=== PATIENT | male | born 1950 | race Caucasian/White ===

== ENCOUNTER → 2017-06-09 08:03 | Outpatient (CLI) | payer MEDICARE, OTHER, SELFPAY ==
--- NOTE | 2017-06-09 08:06 | CT_ITS ---
STUDY: LOW DOSE CT LUNG CANCER SCREENING REASON FOR EXAM: Male, 66 years old. 48 pack-year smoking history. RADIATION DOSAGE (If Supplied By Facility): CTDIvol = ( 3.02 ) mGy, DLP = ( 116.26 ) mGycm TECHNIQUE: No contrast was administered. Low dose technique was utilized (average mAS-38 and kVp 120). 1.25 mm axial source images with a slice interval of 1.25-mm were reconstructed in lung windows. 2.5 mm axial source images with a slice interval of 2.5-mm were reconstructed in lung windows. 5.0 mm axial source images with a slice interval of 5.0-mm were reconstructed in soft tissue windows. Nodule measured using lung windows on PACS and/or independent workstation with automated measurement of minimum and maximum diameter. Nodule measurement reported as average diameter rounded to the nearest whole number. Growth is defined as an increase ins size of greater than 1.5 mm. COMPARISON: None. NODULES: Calcified granuloma in the anterior aspect of the left upper lobe. Emphysema: Hyperinflation. Aorta: Atherosclerotic calcification. Coronary arteries: Coronary artery calcifications. Mediastinal nodes: Small benign-appearing mediastinal lymph nodes. Other chest and abdominal findings: Mild degenerative changes of the thoracic spine. CT/Low Dose CT Lung Screening IMPRESSION: Lung-RADS category 2 - Continue annual screening with LDCT in 12 months. IMPORTANT NOTES FOR USE: ACR Lung-RADS Version 1.0 Assessment Categories Release Date: August 08, 2013 Category: Coded 0-4 bases on nodule(s) with highest degree of suspicion. Negative screen is defined as categories 1 and 2; a positive screen is defined as categories 3 and 4. Category 3 and 4A nodules that are unchanged on interval CT should be coded as category 2, and individuals returned to screening in 12 months. Category 4X: Category 3 or 4 nodules with additional imaging findings that increase the suspicion of lung cancer, such as spiculation, GGN that doubles in size in 1 year, enlarged lymph notes, etc. Category Modifiers: S (significant finding unrelated to lung cancer) and C (prior history of treated lung cancer) may be added to the 0-4 Lung-RADS Electronically Signed: Bladimir Vega MD at 14:32 EST Tel [phone], Service support ,
== END ==
PROVIDERS: Family Provider Family Medicine; PCP Family Medicine; Visit Provider Family Medicine
DX: F17.200 Nicotine dependence, unspecified, uncomplicated (principal); Z87.891 Personal history of nicotine dependence
CPT/HCPCS: G0297

== ENCOUNTER → 2018-07-28 08:20 | Outpatient (CLI) | payer MEDICARE, OTHER, SELFPAY ==
[2018-07-28 10:42] LABS: ALB/GLOB Ratio 1.2 RATIO (0.9-2.4); AST(SGOT) 22 U/L (15-37); Alanine Aminotransfer ALT/SGPT 29 U/L (16-61); Albumin, Serum 3.7 g/dL (3.2-5.0); Alkaline Phosphatase 111 U/L (45-117); Anion Gap 8 (5-15); BUN 13 mg/dL (7-18); BUN/Creat Ratio 14.1 RATIO (10-20); Chloride 107 mmol/L (98-107); Cholesterol 142 mg/dL (200); Creatinine, Serum 0.92 mg/dL (0.70-1.30); EST Glomerular Filtration Rate 86 mL/min (>60); Est Glom Filt Rate - Afr Amer 104 mL/min (>60); Globulin 3.1 g/dL (2.2-4.2); Glucose 96 mg/dL (74-106); High Density Lipoprotein 51 mg/dL; PSA,Total - Annual Screen 0.25 ng/mL (0.00-4.00); Protein, Total 6.8 g/dL (6.4-8.2); Sodium Level 141 mmol/L (136-145); Triglycerides 84 mg/dL; Very Low Density Lipoprotein 17 mg/dL (5-40)
== END ==
PROVIDERS: Family Provider Family Medicine; PCP Family Medicine; Referring Provider Family Medicine; Visit Provider Family Medicine
DX: E78.5 Hyperlipidemia, unspecified (principal); Z13.21 Encounter for screening for nutritional disorder; N40.0 Benign prostatic hyperplasia without lower urinary tract symptoms; Z12.5 Encounter for screening for malignant neoplasm of prostate
CPT/HCPCS: 36415; 80053; 80061; 82306; 84153; G0103

== ENCOUNTER → 2018-08-13 | Outpatient (CLI) | payer MEDICARE, OTHER, SELFPAY ==
--- NOTE | 2018-08-13 07:42 | CT_ITS ---
STUDY: LOW DOSE CT LUNG CANCER SCREENING REASON FOR EXAM: Male, 67 years old. Tobacco use. One pack per day x20 years. RADIATION DOSAGE (If Supplied By Facility): CTDIvol = ( 2.55 ) mGy, DLP = ( 89.97 ) mGycm TECHNIQUE: No contrast was administered. Low dose technique was utilized (average mAS-38 and kVp 120). 1.25 mm axial source images with a slice interval of 1.25-mm were reconstructed in lung windows. 2.5 mm axial source images with a slice interval of 2.5-mm were reconstructed in lung windows. 5.0 mm axial source images with a slice interval of 5.0-mm were reconstructed in soft tissue windows. Nodule measured using lung windows on PACS and/or independent workstation with automated measurement of minimum and maximum diameter. Nodule measurement reported as average diameter rounded to the nearest whole number. Growth is defined as an increase ins size of greater than 1.5 mm. COMPARISON: CT of the chest dated June 09, 2017. NODULES: There is a 4.3 mm noncalcified nodule within the anterolateral inferior periphery of the right upper lobe, sequence 1002, image 157. In retrospect this finding is present and in fact appears more prominent and larger on the comparison view. There is a new, amorphous, noncalcified density within the lingula measuring approximately 8.6 mm in maximum dimension. This finding may represent focal fibrosis although irregularly marginated new parenchymal nodule cannot be excluded. This finding is seen best on sequence 1002, image 206. Total lung nodules (excluding granulomas): 2 Emphysema: Hyperinflation, stable. Endobronchial lesion: None. Aorta: A few, tiny, scattered calcified plaque without delineation of aneurysm. Coronary arteries: Stable multifocal coronary artery calcifications. Heart: The heart and pericardium appear unremarkable except for coronary artery calcifications. Pulmonary artery: Unremarkable nonopacified pulmonary arteries. Mediastinal nodes: There are a few, small, stable, multistation mediastinal lymph nodes. None appear pathologic by size criteria. There is no pathologic hilar adenopathy on this nonenhanced exam. Other chest and abdominal findings: There is a stable, subcentimeter, calcified granuloma within the anterior medial periphery of the left upper lobe, sequence 1002, image 156. The heart and pericardium appear unremarkable. CT/Low Dose CT Lung Screening IMPRESSION: Stable hyperinflation. No endobronchial lesions. Atherosclerotic peripheral vascular disease without delineation of aneurysm. Atherosclerotic coronary artery disease. Unremarkable, nonopacified pulmonary arteries. Stable small multifocal nonpathologic by size criteria mediastinal lymph nodes. No pathologic by size hilar adenopathy on this nonenhanced exam. Stable subcentimeter calcified granuloma within the anterior left upper lobe. Region of focal fibrosis versus irregularly marginated nodule in the lingula. Please see above. ACR lung-RADS assessment category-3. Lingular nodule. IMPORTANT NOTES FOR USE: ACR Lung-RADS Version 1.0 Assessment Categories Release Date: August 08, 2013 Category: Coded 0-4 bases on nodule(s) with highest degree of suspicion. Negative screen is defined as categories 1 and 2; a positive screen is defined as categories 3 and 4. Category 3 and 4A nodules that are unchanged on interval CT should be coded as category 2, and individuals returned to screening in 12 months. Category 4X: Category 3 or 4 nodules with additional imaging findings that increase the suspicion of lung cancer, such as spiculation, GGN that doubles in size in 1 year, enlarged lymph notes, etc. Category Modifiers: S (significant finding unrelated to lung cancer) and C (prior history of treated lung cancer) may be added to the 0-4 Lung-RADS Electronically Signed: Jorge Camacho MD at 8:53 EDT , Service support ,
== END | disposition home or self-care (01) ==
LOC: CT 07:41
PROVIDERS: Family Provider Family Medicine; PCP Family Medicine; Referring Provider Family Medicine; Visit Provider Family Medicine
DX: Z87.891 Personal history of nicotine dependence (principal); F17.200 Nicotine dependence, unspecified, uncomplicated
CPT/HCPCS: G0297

== ENCOUNTER → 2020-02-13 08:17 | Outpatient (CLI) | payer MEDICARE, OTHER, SELFPAY ==
[2020-02-13 10:24] LABS: Vitamin D,25 Hydroxy 61.6 ng/mL
[2020-02-13 10:28] LABS: AST(SGOT) 23 U/L (15-37); Alanine Aminotransfer ALT/SGPT 43 U/L (16-61); Albumin, Serum 3.6 g/dL (3.2-5.0); Alkaline Phosphatase 113 U/L (45-117); Anion Gap 6 (5-15); BUN 18 mg/dL (7-18); Calcium,Total 9.3 mg/dL (8.5-10.1); Chloride 107 mmol/L (98-107); Cholesterol 178 mg/dL (200); Creatinine, Serum 1.06 mg/dL (0.70-1.30); EST Glomerular Filtration Rate 73 mL/min (>60); Est Glom Filt Rate - Afr Amer 89 mL/min (>60); Globulin 3.7 g/dL (2.2-4.2); Glucose 108 mg/dL (74-106); High Density Lipoprotein 75 mg/dL; PSA,Total - Annual Screen 0.28 ng/mL (0.00-4.00); Potassium 4.6 mmol/L (3.5-5.1); Protein, Total 7.3 g/dL (6.4-8.2); Sodium Level 142 mmol/L (136-145); Triglycerides 64 mg/dL; Very Low Density Lipoprotein 13 mg/dL (5-40)
== END ==
PROVIDERS: PCP Family Medicine; Visit Provider Family Medicine
DX: E78.5 Hyperlipidemia, unspecified (principal); N40.0 Benign prostatic hyperplasia without lower urinary tract symptoms; E55.9 Vitamin D deficiency, unspecified
CPT/HCPCS: 36415; 80053; 80061; 82306; 84153; G0103

== ENCOUNTER 2020-05-31 09:50 | Outpatient (RCR) | payer MEDICARE, OTHER, SELFPAY | END 2020-05-31 23:59 | LOC: IMMUN 09:50 | PROVIDERS: PCP Family Medicine; Referring Provider Family Medicine; Visit Provider Family Medicine | DX: Z23 Encounter for immunization (principal) | CPT/HCPCS: 0011A; 0012A ==

== ENCOUNTER → 2020-09-12 13:43 | Outpatient (CLI) | payer MEDICARE, OTHER, SELFPAY ==
--- NOTE | 2020-09-12 13:44 | CT_ITS ---
STUDY: LOW DOSE CT LUNG CANCER SCREENING REASON FOR EXAM: Male, 70 years old. TOBACCO ABUSE. The patient smoked 1 pack per day for 50 years. RADIATION DOSAGE (If Supplied By Facility): CTDIvol = ( 3.02 ) mGy, DLP = ( 120.78 ) mGycm TECHNIQUE: No contrast was administered. Low dose technique was utilized (average mAS-38 and kVp 120). 1.25 mm axial source images with a slice interval of 1.25-mm were reconstructed in lung windows. 2.5 mm axial source images with a slice interval of 2.5-mm were reconstructed in lung windows. 5.0 mm axial source images with a slice interval of 5.0-mm were reconstructed in soft tissue windows. Nodule measured using lung windows on PACS and/or independent workstation with automated measurement of minimum and maximum diameter. Nodule measurement reported as average diameter rounded to the nearest whole number. Growth is defined as an increase ins size of greater than 1.5 mm. COMPARISON: Comparison is made with prior examination dated 08/13/2018. NODULES: Stable 4 mm noncalcified nodule in the anterolateral aspect of the right lower lobe as seen on axial image #160. Calcified granuloma in the anterior medial portion of the left upper lobe as seen on axial image #163. The previously seen irregular nodular density in the anterior aspect of the lingular segment of the left upper lobe is not seen at this time. Emphysema: Mild degree of emphysematous changes. Endobronchial lesion: Aorta: Atherosclerotic plaque formation of the aortic arch. Coronary arteries: Coronary artery calcification. Heart: Unremarkable. Pulmonary artery: Unremarkable. Mediastinal nodes: Small benign-appearing mediastinal lymph nodes. Other chest and abdominal findings: CT/Low Dose CT Lung Screening IMPRESSION: Lung-RADS category 2 - Continue annual screening with LDCT in 12 months. IMPORTANT NOTES FOR USE: ACR Lung-RADS Version 1.1 Assessment Categories Release Date: 2018 Category: Coded 0-4 bases on nodule(s) with highest degree of suspicion. Negative screen is defined as categories 1 and 2; a positive screen is defined as categories 3 and 4. Category 3 and 4A nodules that are unchanged on interval CT should be coded as category 2, and individuals returned to screening in 12 months. Category 4X: Category 3 or 4 nodules with additional imaging findings that increase the suspicion of lung cancer, such as spiculation, GGN that doubles in size in 1 year, enlarged lymph notes, etc. Category Modifiers: S (significant finding unrelated to lung cancer) Electronically Signed: Bladimir Vega MD at 15:31 EDT , Service support ,
== END ==
PROVIDERS: PCP Family Medicine; Referring Provider Family Medicine; Visit Provider Family Medicine
DX: F17.210 Nicotine dependence, cigarettes, uncomplicated (principal)
CPT/HCPCS: 71271

== ENCOUNTER 2020-11-26 07:49 | Emergency (ER) | payer MEDICARE, OTHER, SELFPAY ==
[2020-11-26] VITALS (7 sets, daily range): BP systolic 128–158; BP diastolic 77–108; PULSE 63–79; RESP 11–21; TEMP 35.6; O2SAT 96–100; BMI 22.8
--- NOTE | 2020-11-26 08:08 | EKG12_ITS ---
Test Reason : STROKE Blood Pressure : / mmHG Vent. Rate : 074 BPM Atrial Rate : 074 BPM P-R Int : 158 ms QRS Dur : 104 ms QT Int : 404 ms P-R-T Axes : 068 011 035 degrees QTc Int : 448 ms Normal sinus rhythm Normal ECG Confirmed by GILBERT ASENCIO, SARY ([id number]), rewrite editor [place] ([id number]) on 11/28/2020 9:58:11 AM Referred By: Confirmed By:SARY HUNT MD
--- NOTE | 2020-11-26 08:08 | CT_ITS ---
STUDY: CT HEAD STROKE PROTOCOL W/O CONTRAST INJECTION REASON FOR EXAM: Male, 70 years old. Neuro deficit, acute, stroke suspected RADIATION DOSAGE (If Supplied By Facility): CTDIvol = ( 44.99 ) mGy, DLP = ( 796.11 ) mGycm TECHNIQUE: Transaxial CT imaging of the brain was performed without administration of intravenous contrast material. Individualized dose optimization techniques were used for this CT. COMPARISON: No relevant priors. FINDINGS: Normal soft tissue structures. Normal calvarium. There is mild cerebral atrophy with widening of the extra-axial spaces and ventricular dilatation. Normal white matter tracts of the cerebral hemispheres. Normal basal ganglia and thalami. Normal brainstem. Normal cerebellum. There is no intracranial hemorrhage. There are no findings of an acute ischemic infarction. Atherosclerotic calcification of the cavernous portions of the internal carotid arteries bilaterally. Normal visualized paranasal sinuses. CT/STROKE Brain/Head without Cont IMPRESSION: Chronic involutional changes of the brain. N.B. : The above Results were Read Back by Bladimir Vega MD to Whit Grubbs and understanding confirmed on 11/26/2020 08:49:35 (ET). Electronically Signed: Bladimir Vega MD at 8:50 EDT , Service support ,
--- NOTE | 2020-11-26 08:08 | RAD_ITS ---
STUDY: X-RAY CHEST REASON FOR EXAM: Male, 70 years old. Neuro deficit, acute, stroke suspected TECHNIQUE: Single AP portable view of the chest. COMPARISON: None. FINDINGS: EKG electrodes are seen. The lungs are clear and expanded. There is no demonstrated pleural abnormality. Normal size heart. Normal mediastinum and kate. Normal visualized pulmonary arteries. There is atherosclerotic calcification of the aortic arch with tortuosity. Normal visualized thoracic spine. Normal visualized ribs, clavicles, and shoulders. There is no demonstrated abnormality of the visualized soft tissue structures of the upper abdomen. RAD/Chest 1 View IMPRESSION: Normal x-ray examination of the chest. Electronically Signed: Bladimir Vega MD at 9:24 EDT , Service support ,
--- NOTE | 2020-11-26 08:09 | CT_ITS ---
STUDY: CTA HEAD AND NECK WITH CONTRAST REASON FOR EXAM: Male, 70 years old. Neuro deficit, acute, stroke suspected RADIATION DOSAGE (If Supplied By Facility): CTDIvol = ( 19.31 ) mGy, DLP = ( 726.58 ) mGycm TECHNIQUE: CT angiography was performed with a multi-detector CT scanner. Data acquisition was obtained from the skull base through the vertex following intravenous administration of IV 100mL [id number]-[id number]. MIP images were reconstructed from the axial data set. Post-processing of the angiographic images was performed, with multiplanar reformation and 3D reconstruction. Individualized dose optimization techniques were used for this CT. COMPARISON: No relevant priors. FINDINGS: Normal bilateral petrous carotid arteries. Normal right cavernous carotid artery with a normal supraclinoid bifurcation. Normal left cavernous carotid artery with a normal supraclinoid bifurcation. Normal right A1 segments of the anterior cerebral artery. Normal left A1 segments of the anterior cerebral artery. Normal intact anterior communicating artery (ACOM). Normal bilateral A2 segments of the anterior cerebral arteries. Normal right M1 and M2 segments of the middle cerebral arteries, with a normal M1 bifurcation. Normal left M1 and M2 segments of the middle cerebral arteries, with a normal M1 bifurcation. Normal right posterior communicating artery (PCOM). Normal left posterior communicating artery (PCOM). Normal bilateral vertebral arteries. Normal basilar artery with a normal basilar bifurcation. The visualized bilateral superior cerebellar (SCA) arteries are normal. Normal bilateral P1, P2 and visualized P3 segments of the posterior cerebral arteries. There is no demonstrated aneurysm of the [place]. There is no demonstrated abnormality of the visualized brain. AORTIC ARCH: There is atherosclerotic calcific plaque formation of the aortic arch and great vessels arising from the aortic arch, without a hemodynamically significant stenosis. There is a normal origin of the brachiocephalic, left common carotid, and left subclavian arteries. Mild atherosclerotic plaque at the origin of the left subclavian artery and brachiocephalic artery. RIGHT CAROTID ARTERIES: Normal right common carotid artery (CCA). Normal right common carotid bulb. There is moderate atherosclerotic plaque formation of the origin of the right internal carotid artery with an estimated stenosis of 50-69% stenosis. Normal visualized cervical portion of the right internal carotid artery. Normal origin of the right external carotid artery (ECA). LEFT CAROTID ARTERIES: Normal left common carotid artery (CCA). Normal left common carotid bulb. There is extensive atherosclerotic plaque formation of the origin of the left internal carotid artery with an estimated stenosis of greater than 70%. Normal visualized cervical portion of the left internal carotid artery. Normal origin of the left external carotid artery (ECA). VERTEBRAL ARTERIES: Normal bilateral vertebral arteries. CT/STROKE CTA Head AND Neck W/Con IMPRESSION: Greater than 70% narrowing at the origin of the left internal carotid artery. N.B. : The above Results were Read Back by Bladimir Vega MD to Whit Grubbs and understanding confirmed on 11/26/2020 08:52:49 (ET). Electronically Signed: Bladimir Vega MD at 8:53 EDT , Service support ,
--- NOTE | 2020-11-26 08:10 | EDS_ITS ---
HPI History of Present Illness Chief Complaint: Confusion Narrative Narrative: 70-year-old male presenting with confusion. Family states this started last night. He has had unsteady gait and vertigo. He also complains of difficulty with confusion and word finding. He states the left side of his body does not feel right. Denies slurred speech. He is not on anticoagulants. No history of previous stroke. Prior similar symptoms: No Recent Illness/Hospitalization: No PFSH PFS Medical History (Updated 11/26/20 @ 09:[address] Whit Grubbs MD) Back pain Fibromyalgia Hyperlipidemia Home Medications atorvastatin 10 mg PO DAILY 11/26/20 [History Last Taken Unknown] finasteride 5 mg PO DAILY 11/26/20 [History Last Taken Unknown] Allergy/AdvReac Type Severity Reaction Status Date / Time No Known Allergies Allergy Verified 11/26/20 07:51 Social History Smoking Status: Never smoker ROS ROS ED Constitutional Constitutional ED: Denies fever(s) Eyes Eyes: Denies change in vision ENT ENT ED: Denies rhinorrhea or sore throat Cardiovascular Cardiovascular: Denies chest pain or palpitations Respiratory/Chest Respiratory/Chest: Denies cough or dyspnea Gastrointestinal Gastrointestinal: Denies abdominal pain, diarrhea, nausea or vomiting Genitourinary Genitourinary ED: Denies dysuria Musculoskeletal Musculoskeletal: Denies myalgias Integumentary Denies rash Neurologic Neurologic: Reports other Details: Expressive aphasia, vertigo ; Denies headache(s) Psychiatric Psychiatric: Denies suicidal thoughts EXAM Physical Exam Const Vital Signs: 11/26/20 07:51 11/26/20 08:03 11/26/20 08:08 Temperature 96.1 F L Temperature Source Temporal Pulse Rate 79 71 Respiratory Rate 14 11 L Blood Pressure 158/92 H 136/77 H Blood Pressure Mean 114 96 Pulse Ox 98 99 Oxygen Delivery Method Room Air Room Air 11/26/20 08:33 11/26/20 08:38 Temperature Temperature Source Pulse Rate 78 71 Respiratory Rate 16 16 Blood Pressure 158/108 H 154/95 H Blood Pressure Mean 124 114 Pulse Ox 100 96 Oxygen Delivery Method Room Air Room Air Positive well nourished and well developed General Appearance ED: well developed HEENT Reports normocephalic and head/scalp atraumatic Eyes PERRL and EOMs intact bilaterally Neck supple General: Negative for tenderness Chest Wall inspection of chest normal Resp normal respiratory effort and clear to auscultation bilaterally Cardio regular rate and regular rhythm GI non-tender and non-distended Palpation: soft; Negative for guarding or rebound tenderness present no CVA tenderness Extremity normal to inspection Neuro oriented x3 Neuro Narrative: NIH 2: LOC questions, expressive aphasia Sensorium / Orientation: alert Psych mental status grossly normal MDM MDM MDM Narrative Medical decision making narrative: Stroke team was activated on patient's arrival. He is not a TPA candidate. Discussed with [facility] neurology. They are in agreement that patient is not a TPA candidate. Recommend admission for stroke work-up to [facility] if there is no LVO on CT scan. CT head shows no acute process. Glucose 130. CBC, chemistries unremarkable. Troponin is negative. EKG is sinus rhythm rate of 74 with no acute ischemic changes. CTA head shows greater than 70% narrowing at the origin of the left internal carotid artery. This was discussed with [facility] neurology. Recommend transfer to [facility] for further evaluation due to narrowing of left internal carotid artery. Patient and family are agreeable with this plan. He will be transferred to [facility]. Lab Data Labs: Laboratory Results - last 24 hr 11/26/20 11/26/20 11/26/20 08:03 08:05 08:05 WBC 7.3 RBC 4.76 Hgb 15.5 Hct 46.7 MCV 98.1 H MCH 32.6 H MCHC 33.2 RDW Std Deviation 44.7 H RDW Coeff of Crispin 12.4 Plt Count 194 MPV 9.5 Immature Gran % (Auto) 0.400 Neut % (Auto) 71.5 H Lymph % (Auto) 16.4 L [place] % (Auto) 8.3 Eos % (Auto) 3.0 Baso % (Auto) 0.4 Absolute Neuts (auto) 5.2 Absolute Lymphs (auto) 1.19 Nucleated RBC % 0 PT 14.2 INR 1.2 APTT 29.5 Sodium Potassium Chloride Carbon Dioxide Anion Gap BUN Creatinine Estim Creat Clear Calc Est GFR (MDRD) Af Amer Est GFR (MDRD) Non-Af BUN/Creatinine Ratio Glucose Calcium Troponin I High Sens POC Glucose 130 H 11/26/20 08:05 WBC RBC Hgb Hct MCV MCH MCHC RDW Std Deviation RDW Coeff of Crispin Plt Count MPV Immature Gran % (Auto) Neut % (Auto) Lymph % (Auto) [place] % (Auto) Eos % (Auto) Baso % (Auto) Absolute Neuts (auto) Absolute Lymphs (auto) Nucleated RBC % PT INR APTT Sodium 139 Potassium 4.1 Chloride 109 H Carbon Dioxide 24.0 Anion Gap 6 BUN 17 Creatinine 0.96 Estim Creat Clear Calc 74.97 Est GFR (MDRD) Af Amer 98 Est GFR (MDRD) Non-Af 81 BUN/Creatinine Ratio 17.6 Glucose 137 H Calcium 8.8 Troponin I High Sens 23.2 POC Glucose Radiography Diagnostic Testing: Radiology Impression Brain CT 11/26/20 08:08 IMPRESSION: Chronic involutional changes of the brain. N.B. : The above Results were Read Back by Bladimir Vega MD to Whit Grubbs and understanding confirmed on 11/26/2020 08:49:35 (ET). Electronically Signed: Bladimir Vega MD at 8:50 EDT , Service support , ADDENDUM: 11/26/20 0857 IMPRESSION: Chronic involutional changes of the brain. N.B. : The above Results were Read Back by Bldaimir Vega MD to Whit Grubbs and understanding confirmed on 11/26/2020 08:49:35 (ET). Electronically Signed: Bladimir Vega MD at 8:50 EDT , Service support , Head/Neck CTA 11/26/20 08:09 IMPRESSION: Greater than 70% narrowing at the origin of the left internal carotid artery. N.B. : The above Results were Read Back by Bladimir Vega MD to Whit Grubbs and understanding confirmed on 11/26/2020 08:52:49 (ET). Electronically Signed: Bladimir Vega MD at 8:53 EDT , Service support , ADDENDUM: 11/26/20 0900 IMPRESSION: Greater than 70% narrowing at the origin of the left internal carotid artery. N.B. : The above Results were Read Back by Bladimir Vega MD to Whit Grubbs and understanding confirmed on 11/26/2020 08:52:49 (ET). Electronically Signed: Bladimir Vega MD at 8:53 EDT , Service support , EKG Initial EKG: Attestation: I personally reviewed and interpreted this EKG as follows: Interpretation: Sinus Rhythm and No Acute Injury Pattern Discharge Plan Triage Chief Complaint: Confusion ED Provider: Whit Grubbs Dx/Rx/DC Orders Clinical Impression: Acute CVA (cerebrovascular accident), Carotid artery narrowing Prescriptions: No Action atorvastatin 10 mg tablet 10 mg PO DAILY RF: 0 finasteride 5 mg tablet 5 mg PO DAILY RF: 0 Primary Care Provider: Fransisco Granado Referrals: Fransisco Granado MD [Primary Care Provider] - Disposition Disposition: Acute Care Hospital Discharge Location: [facility]
--- NOTE | 2020-11-26 08:15 | NURSING ---
[id number] STROKE ALERT CALLED
[2020-11-26 08:24] LABS: Absolute Lymphocyte Count 1.19 X10^3/uL (0.83-4.51); Absolute Neutrophil Count 5.2 X10^3/uL (2.0-7.7); Basophil# 0.03 X10^3/uL; Basophil% 0.4 % (0-1); Eosinophil# 0.22 X10^3/uL; Hematocrit 46.7 % (40-54); Hemoglobin 15.5 g/dL (13.0-16.5); Lymphocyte # 1.19 X10^3/ul (0.83-4.51); Lymphocyte % 16.4 % (19-41); Mean Corp Hgb Conc 33.2 g/dL (32-36); Mean Corpuscular Hgb 32.6 pg (27.0-32.0); Mean Corpuscular Volume 98.1 fL (80-94); Mean Platelet Vol. 9.5 fl (6.2-12.0); Monocyte% 8.3 % (0-10); NRBC Flagged by Analyzer 0 % (0-5); Neutrophil # 5.19 X10^3/uL (2.7-7.7); Neutrophil % 71.5 % (47-70); Platelet Count 194 K/mm3 (150-450); RBC Distribution Width CV 12.4 % (11.6-14.6); RBC Distribution Width SD 44.7 fl (35.1-43.9); Red Blood Count 4.76 M/mm3 (4.6-6.2); White Blood Count 7.3 K/mm3 (4.4-11.0)
[2020-11-26 08:40] LABS: Anion Gap 6 (5-15); BUN 17 mg/dL (7-18); BUN/Creat Ratio 17.6 RATIO (10-20); Calcium,Total 8.8 mg/dL (8.5-10.1); Chloride 109 mmol/L (98-107); Creatinine, Serum 0.96 mg/dL (0.70-1.30); EST Glomerular Filtration Rate 81 mL/min (>60); Est Glom Filt Rate - Afr Amer 98 mL/min (>60); Estimated Creatinine Clearance 74.97 ml/min; Glucose 137 mg/dL (74-106); Potassium 4.1 mmol/L (3.5-5.1); Sodium Level 139 mmol/L (136-145); Troponin-I HS 23.2 pg/mL (3.0-78.5)
[2020-11-26 08:45] LABS: Bedside Glucose 130 mg/dL (70-110)
[2020-11-26 08:46] LABS: International Normalized Ratio 1.2; Prothrombin Time (Protime)PT. 14.2 SECONDS (11.7-14.9)
[2020-11-26 08:47] LABS: Partial Thromboplast Time 29.5 Seconds (24.1-36.2)
--- NOTE | 2020-11-26 09:35 | NURSING ---
CALLED [facility], ETA IS 30 MIN
== END 2020-11-26 09:57 | disposition short-term general hospital (02) ==
PROVIDERS: Emergency Provider Emergency Medicine; PCP Family Medicine
DX: I63.9 Cerebral infarction, unspecified (principal); I65.22 Occlusion and stenosis of left carotid artery; E78.5 Hyperlipidemia, unspecified; M79.7 Fibromyalgia; Z79.899 Other long term (current) drug therapy
CPT/HCPCS: 70450; 70496; 70498; 71045; 80048; 82962; 84484; 85025; 85610; 85730; 93005; 99285; Q9967; A4216

== ENCOUNTER 2020-12-20 09:47 | Outpatient (RCR) | payer MEDICARE, OTHER, SELFPAY ==
--- NOTE | 2020-12-20 12:01 | HP.SP.AD ---
History - History Date of Eval: 12/20/20 Previous speech therapy: Yes Results: Patient stated he did receive speech therapy at [facility]. Patient was there for 8 days. Other Relevant Medical History/Diagnoses/Surgery: 70-year-old male presented with confusion at [facility] on 11/26/2020. He presented with an unsteady gait and vertigo. He also complained of difficulty with confusion and word finding. No history of previous stroke. Patient had a CT completed on 11/26/2020. Clinical Impression: Acute CVA (cerebrovascular accident), Carotid artery narrowing. CTA head showed greater than 70% narrowing at the origin of the left internal carotid artery. This was discussed with [facility] neurology. Recommended transfer to [facility] for further evaluation due to narrowing of left internal carotid artery. Patient and family were agreeable with this plan. He was transferred to [facility]. Medications related to this diagnosis: atorvastatin 10 mg tablet. 10 mg PO DAILY RF: 0. finasteride 5 mg tablet. 5 mg PO DAILY RF: 0. aspirin Smoking Status: Never smoker Hx Smoking: No - Pain Is pain an issue with your current prescribed condition?: No - Personal Right Hearing Abillity: Use of Hearing Aid Left Hearing Abillity: Use of Hearing Aid Visual Assistive Devices: Glasses Patients Living Arrangements: With Significant Other Patient Allergies - Allergies Allergies No Known Allergies Allergy (Verified 11/26/20 07:51) CLQT - CLQT CLQT Administered: Yes CLQT: Cognitive Linguistic Quick Test (CLQT) is a criterion - referenced assessment designed for adults between the ages of 18 and 89 with known or suspected neurological dysfuntions. The CLQT is to assess strength and weaknesses in five cognitive domains. Severity ratings are within normal limits, mild, moderate, severe deficits. The subtests are as follows: Date: 12/20/20 - Attention Attention: WNL - Memory Memory: Mild - Executive Functions Executive Functions: WNL - Language Language: Mild - Visuospatial Skills Visuospatial Skills: WNL - Composite Severity Rating Composite Severity Rating: WNL - Clock Drawing Severity Rating Clock Drawing Severity Rating: WNL - CLQT Comments CLQT comments Patient stated that he was aware that at times he encounters some difficulty with word finding when engaged in a conversation. He stated sometimes it takes a little while to come up with the word. He stated that his ability to recall words has greatly improved since he has come home for [facility]. Patient stated that he is aware that he at times tends to not take his time and that his reminds him. Patient is currently managing his own medication with monitoring. has always taken care of banking and financial matters. Plan - Plan Plan: Patient scored in the normal range for Attention, executive function, and visual spatial cognitive domains. Patient presented mild deficit in memory and language in regards to word recall. Therapist gave patient a hand out of word recall strategies that he can try to use and patient stated that he had found that he was already using some of the strategies. Plan of Care is to recheck patient in a month in order to assess if there any changes in his cognitive status. - Recommendations MBS: No Treatment Warranted: No - Frequency Frequency: Monthly Duration: 2-4 Months - Prognosis Prognosis: Excellent - Goal #1-5 Goal #1: Will reassess Patient's cognitive skills in 1 month in order to monitor patient's progress. Education - Patient has Indicated that the Following Identified Educational Needs: None The Patient has indicated that they have no educational or learning abilities that may effect their care.: Yes - Patient Instruction Patient Education: Diagnosis, Treatment Plan, Home Exercise Program Person Taught: Patient Teaching Method: Discussion Response to teaching: Return demonstration, Verbalize understanding
--- NOTE | 2021-01-22 13:28 | HP.SP.DC ---
ST Discharge Summary - Discharged: Discharge: Patient was initially evaluated on 12/20/20. Results of the CLQT, indicated patient, present very mild deficits in memory and language. At time of evaluation, patient stated that his cognitive status was continuing to improve. Therapist discussed with patient about scheduling a follow up visit in a month to address any difficulties he still might be having. It was discussed with patient that if he felt that he was not having any difficulties with his cognitive skills prior to next appointment , he could call in and cancel the appointment. Patient had called in and cancelled his follow up appointment for 01/17/2021. Patient has been discharged from speech therapy.
== END 2020-12-20 19:00 | disposition home or self-care (01) ==
LOC: SP 09:47
PROVIDERS: PCP Family Medicine; Referring Provider Family Medicine; Visit Provider Family Medicine
DX: R47.01 Aphasia (principal)
CPT/HCPCS: 92523

== ENCOUNTER → 2021-03-08 07:07 | Outpatient (CLI) | payer MEDICARE, OTHER, SELFPAY ==
[2021-03-08 10:03] LABS: AST(SGOT) 20 U/L (15-37); Alanine Aminotransfer ALT/SGPT 31 U/L (16-61); Albumin, Serum 3.4 g/dL (3.2-5.0); Alkaline Phosphatase 103 U/L (45-117); Anion Gap 3 (5-15); BUN 19 mg/dL (7-18); BUN/Creat Ratio 19.7 RATIO (10-20); Calcium,Total 8.9 mg/dL (8.5-10.1); Chloride 111 mmol/L (98-107); Cholesterol 152 mg/dL (200); Creatinine, Serum 0.96 mg/dL (0.70-1.30); EST Glomerular Filtration Rate 81 mL/min (>60); Est Glom Filt Rate - Afr Amer 98 mL/min (>60); Globulin 3.5 g/dL (2.2-4.2); Glucose 95 mg/dL (74-106); High Density Lipoprotein 55 mg/dL; PSA,Total - Annual Screen 0.22 ng/mL (0.00-4.00); Potassium 4.2 mmol/L (3.5-5.1); Protein, Total 6.9 g/dL (6.4-8.2); Sodium Level 141 mmol/L (136-145); Triglycerides 89 mg/dL; Very Low Density Lipoprotein 18 mg/dL (5-40)
== END ==
PROVIDERS: PCP Family Medicine; Referring Provider Family Medicine; Visit Provider Family Medicine
DX: R73.01 Impaired fasting glucose (principal); N40.0 Benign prostatic hyperplasia without lower urinary tract symptoms; Z86.73 Personal history of transient ischemic attack (TIA), and cerebral infarction without residual deficits
CPT/HCPCS: 36415; 80053; 80061; 84153; G0103

== ENCOUNTER 2021-06-27 08:48 | Outpatient (CLI) | payer MEDICARE, OTHER, SELFPAY ==
--- NOTE | 2021-06-27 08:53 | CDU_ITS ---
Reason For Study: evaluate L carotis stent, carotid stenosis Rt. Velocities/BP Lt. Velocities/BP Prox CCA 109.9/18.6 cm/sec. Prox CCA 115.7/27.4 cm/sec. Mid CCA 89.1/22.6 cm/sec. Mid CCA 96.1/17.6 cm/sec. Dist CCA 85.2/20.0 cm/sec. Dist CCA 72.8/20.0 cm/sec. Prox ICA 159.5/42.6 cm/sec. Prox ICA 67.9/15.1 cm/sec. Mid ICA 101.1/28.6 cm/sec. Mid ICA 69.1/21.2 cm/sec. Dist ICA 71.6/24.9 cm/sec. Dist ICA 59.3/22.5 cm/sec. Rt. ICA/CCA = 1.8. Lt. ICA/CCA = .7. Prox ECA 125.6/18.6 cm/sec. Prox ECA 112.1/18.8 cm/sec. Rt. Vert. 56.9/13.9 cm/sec. Lt. Vert. 60.8/15.7 cm/sec. Right Extracranial There is heterogeneous, smooth atherosclerotic plaque noted in the right common carotid artery. There is heterogeneous, irregular atherosclerotic plaque noted in the right internal carotid artery. There is heterogeneous, irregular atherosclerotic plaque noted in the right external carotid artery. Antegrade flow is noted in the right vertebral artery. Left Extracranial There is heterogeneous, irregular atherosclerotic plaque noted in the left common carotid artery. There is heterogeneous, irregular atherosclerotic plaque noted in the left internal carotid artery. Stent noted in the L ICA. There is heterogeneous, irregular atherosclerotic plaque noted in the left external carotid artery. Antegrade flow is noted in the left vertebral artery. Procedure Carotid Duplex 18418. This is a Carotid Duplex examination using B-mode, color flow and specral Doppler. The exam was diagnostic. Exam performed in department. VL/Carotid Duplex Ultrasound Interpretation Summary Irregular calcific plaque at the proximal right internal carotid artery with 50 to 69% stenosis. Less than 50% stenosis right external carotid artery Irregular calcific plaque within the proximal left internal carotid artery with stent artifact noted. Less than 50% stenosis left internal carotid artery Less than 50% stenosis left external carotid artery Patent and antegrade vertebral arteries bilaterally Ordering Physician: Evan Car Performed By: Charles Lambert RVT
== END 2021-06-27 23:59 | disposition home or self-care (01) ==
PROVIDERS: PCP Family Medicine; Referring Provider Psychiatry & Neurology Neurology; Visit Provider Psychiatry & Neurology Neurology
DX: I65.22 Occlusion and stenosis of left carotid artery (principal); Z86.73 Personal history of transient ischemic attack (TIA), and cerebral infarction without residual deficits
CPT/HCPCS: 93880

== ENCOUNTER → 2021-08-02 | Outpatient (CLI) | payer MEDICARE, OTHER, SELFPAY ==
--- NOTE | 2021-08-02 08:15 | RAD_ITS ---
STUDY: X-RAY - LUMBOSACRAL SPINE REASON FOR EXAM: Male, 70 years old. ddd TECHNIQUE: Six view(s) of the lumbosacral spine were obtained. COMPARISON: 03/29/2014 FINDINGS: Unremarkable lumbar lordosis. There is no substantial scoliosis. There is unremarkable alignment of the vertebrae. Multilevel degenerative endplate changes visualized, no evidence of compression deformity of the lumbar vertebral bodies is seen. Subtle grade 1 anterolisthesis of L3 over L4 is seen that demonstrates no significant variation in different positions Extensive hypertrophic changes in the posterior column consistent with facet arthrosis. Atherosclerotic calcifications visualized in the abdominal aorta. RAD/L/S Spine w Bend Min 6 Vw IMPRESSION: Degenerative changes of the lumbar spine demonstrating slight progression in comparison to the prior study, no acute osseous abnormality is seen. Electronically Signed: Michael Vale MD at 8:49 EDT ,
== END | disposition home or self-care (01) ==
LOC: RAD 08:11
PROVIDERS: PCP Family Medicine; Referring Provider Family Medicine; Visit Provider Family Medicine
DX: M51.36 Other intervertebral disc degeneration, lumbar region (principal)
CPT/HCPCS: 72114

== ENCOUNTER 2021-08-10 06:36 | Emergency (ER) | payer MEDICARE, OTHER, SELFPAY ==
[2021-08-10 06:37] VITALS: BP 145/91; PULSE 97; RESP 20; TEMP 36.1; O2SAT 98; BMI 23.6
--- NOTE | 2021-08-10 07:11 | EX.ED.DYSGE1 ---
HPI History of Present Illness Chief Complaint: Other, Pain/Inj Detail of Chief Complaint: Back pain Informant: patient Onset/Context/Timing Onset: Days Context: Gradual Onset Timing: Waxes and wanes Current Severity: Moderate Maximum Severity: Severe Narrative Narrative: Patient present secondary to low back pain with radiation down his left leg. He has had similar problems in the past. Patient states that he noted some back pain after getting in and out of a skid cane loader several days ago. He has seen his primary care physician who started him on gabapentin. Has been to the chiropractor the last 2 days. There is no fall or direct trauma to his back. No problems with bowel or bladder control. No fever or chills. [facility] Medical History Arthritis Back pain Fibromyalgia History of back problems History of blood clots Hyperlipidemia Prostate disorder Skin cancer Home Medications finasteride 5 mg PO DAILY 11/26/20 [History Last Taken Unknown] atorvastatin 20 mg tablet 20 mg PO DAILY #30 tab 06/06/21 [Rx Last Taken Unknown] lisinopril 10 mg tablet See Rx Instructions .ROUTE .COMPLEX #30 tab 06/06/21 [Rx Last Taken Unknown] aspirin 325 mg tablet 325 mg PO DAILY #30 tab 07/04/21 [Rx Last Taken Unknown] cyclobenzaprine 10 mg PO BID PRN #10 tab 08/10/21 [Rx Last Taken Unknown] cyclobenzaprine 10 mg PO TID PRN 08/10/21 [History Last Taken Unknown] hydrocodone-acetaminophen 1 tab PO Q6H PRN 3 Days #10 tab 08/10/21 [Rx Last Taken Unknown] naproxen [Naprosyn] 500 mg PO BID PRN #20 tab 08/10/21 [Rx Last Taken Unknown] prednisone 40 mg PO DAILY #8 tab 08/10/21 [Rx Last Taken Unknown] Allergy/AdvReac Type Severity Reaction Status Date / Time No Known Allergies Allergy Verified 08/10/21 06:39 Social History adopted: Yes Smoking Status: Never smoker Tobacco: How many years used: 40 how long ago did patient quit smoking: quit in November 2020 second hand exposure: No alcohol intake: current alcohol intake frequency: a few times a month substance use type: does not use ROS ROS ED Constitutional Constitutional ED: Denies chills or fever(s) Eyes Eyes: Denies change in vision ENT ENT ED: Denies sore throat Cardiovascular Cardiovascular: Denies chest pain Respiratory/Chest Respiratory/Chest: Denies cough or dyspnea Gastrointestinal Gastrointestinal: Denies abdominal pain, nausea or vomiting Genitourinary Genitourinary ED: Denies dysuria or hematuria Musculoskeletal Musculoskeletal: Reports back pain Integumentary Denies rash Neurologic Neurologic: Denies headache(s), paresthesias or weakness Allergic/Immunologic Allergic/Immunologic ED: Denies urticaria EXAM Physical Exam Const Vital Signs: 08/10/21 06:37 Temperature 97 F L Temperature Source Temporal Pulse Rate 97 Respiratory Rate 20 H Blood Pressure 145/91 H Blood Pressure Mean 109 Pulse Ox 98 Oxygen Delivery Method Room Air Positive well nourished and well developed General Appearance ED: well developed HEENT Reports moist mucous membranes Eyes PERRL and EOMs intact bilaterally Neck supple Chest Wall inspection of chest normal and palpation of chest normal Resp normal respiratory effort and clear to auscultation bilaterally Cardio regular rate and regular rhythm GI non-tender Palpation: soft Back/Spine Back/Spine Narrative: Reproducible tenderness in the left lower lumbar paraspinal muscles and over the left sciatic notch. No midline tenderness. Extremity normal to inspection Neuro oriented x3 Neuro Narrative: Good strength and sensation on testing of the lower extremities. Good distal pulses. Sensorium / Orientation: alert Psych mental status grossly normal Skin no rashes or lesions noted MDM MDM MDM Narrative Medical decision making narrative: Patient has evidence of sciatica with no fall or direct trauma. He has been trying career agent along with gabapentin without improvement. He will be treated with Naprosyn, [place], Flexeril, prednisone. Return instructions provided. Patient voices understanding and agreement. Discharge Plan Triage Chief Complaint: Other, Pain/Inj ED Provider: Naida Roman Dx/Rx/DC Orders Clinical Impression: Sciatica Instructions: ED Sciatica Prescriptions: New naproxen [Naprosyn] 500 mg tablet 500 mg PO BID PRN (Reason: pain) Qty: 20 RF: 0 hydrocodone-acetaminophen 5-325 mg tablet 1 tab PO Q6H PRN (Reason: pain) 3 Days Qty: 10 RF: 0 cyclobenzaprine 10 mg tablet 10 mg PO BID PRN (Reason: muscle spasm) Qty: 10 RF: 0 prednisone 20 mg tablet 40 mg PO DAILY Qty: 8 RF: 0 No Action atorvastatin [Lipitor] 20 mg tablet 20 mg PO DAILY Qty: 30 RF: 4 lisinopril 10 mg tablet See Rx Instructions .ROUTE .COMPLEX Qty: 30 RF: 4 finasteride 5 mg tablet 5 mg PO DAILY RF: 0 cyclobenzaprine 10 mg tablet 10 mg PO TID PRN (Reason: Muscle Spasm) RF: 0 aspirin 325 mg tablet 325 mg PO DAILY Qty: 30 RF: 3 Primary Care Provider: Fransisco Granado Referrals: Fransisco Granado MD [Primary Care Provider] - 1 Week if not improving Disposition Disposition: Home, Self Care Discharge Date/Time: 08/10/21 07:26
[2021-08-10] MEDS: HYDROcodone Bitartrate/Apap 5/325 Tablet PO (07:18)
[2021-08-10] MEDS: Naproxen 500 MG Tablet PO (07:18)
[2021-08-10] MEDS: cycloBENZAPRine HCl 10 MG Tablet PO (07:18)
[2021-08-10] MEDS: predniSONE 20 MG Tablet 40 MG PO (07:19)
--- NOTE | 2021-08-13 15:04 | CASEMGMT ---
ED follow-up phone call: Patient states he just got back from [facility] for outpatient therpay. Patient states he as been in contact with PCP. Patient was able to fill prescriptions without any issues. Patient had no further questions or concerns at this time.
== END 2021-08-10 07:26 | disposition home or self-care (01) ==
PROVIDERS: Emergency Provider Emergency Medicine; PCP Family Medicine; Visit Provider Emergency Medicine
DX: M54.32 Sciatica, left side (principal); M79.7 Fibromyalgia; E78.5 Hyperlipidemia, unspecified; Z87.891 Personal history of nicotine dependence; Z85.828 Personal history of other malignant neoplasm of skin; Z86.718 Personal history of other venous thrombosis and embolism; Z79.899 Other long term (current) drug therapy
CPT/HCPCS: 99283

== ENCOUNTER 2021-08-10 13:19 | Emergency (ER) | payer MEDICARE, OTHER, SELFPAY ==
[2021-08-10 13:20] VITALS: BP 142/79; PULSE 110; RESP 16; TEMP 36.6; O2SAT 98; BMI 23.4
--- NOTE | 2021-08-10 13:57 | EDS_ITS ---
HPI History of Present Illness Chief Complaint: Back Informant: patient and spouse/S.O. Narrative Narrative: Patient presents with back pain. He states he was hoping the medicines were to work by now. He thought the medicines were going to kick in very soon. His states that they were told it would take some time for them to work. Patient states he was using a skid steer about 2 weeks ago. He was climbing in and out frequently. He started to develop back pain at the time. He has back pain going back to his teens and 20s. When he was 21 even it was recommended he have surgery. He never did. He fights this all the time. He commonly gets radiation of pain into his thighs on either side. However, for the last week or so he has had radiation of pain down his left leg laterally to the left lateral tib-fib area. He has not developed any weakness. No numbness. No bowel or bladder dysfunction. He has chronic BPH symptoms but no change in this whatsoever. He has no fevers. He has no acute trauma. He had outpatient x-rays through his primary physician already. He was seen earlier today. He was given prescription for hydrocodone, Flexeril, Naprosyn and prednisone. He has taken these but the pain is still there. Is not really worse but is not better. He states sitting is actually has better position. He can get into a position where he has no pain going down his leg at all. He states he has never been without lower back pain. Standing is the worst position for him. [facility] Medical History Arthritis Back pain Fibromyalgia History of back problems History of blood clots Hyperlipidemia Prostate disorder Skin cancer Home Medications finasteride 5 mg PO DAILY 11/26/20 [History Last Taken Unknown] atorvastatin 20 mg tablet 20 mg PO DAILY #30 tab 06/06/21 [Rx Last Taken Unknown] lisinopril 10 mg tablet See Rx Instructions .ROUTE .COMPLEX #30 tab 06/06/21 [Rx Last Taken Unknown] aspirin 325 mg tablet 325 mg PO DAILY #30 tab 07/04/21 [Rx Last Taken Unknown] cyclobenzaprine 10 mg PO BID PRN #10 tab 08/10/21 [Rx Last Taken Unknown] cyclobenzaprine 10 mg PO TID PRN 08/10/21 [History Last Taken Unknown] hydrocodone-acetaminophen 1 tab PO Q6H PRN 3 Days #10 tab 08/10/21 [Rx Last Taken Unknown] naproxen [Naprosyn] 500 mg PO BID PRN #20 tab 08/10/21 [Rx Last Taken Unknown] prednisone 40 mg PO DAILY #8 tab 08/10/21 [Rx Last Taken Unknown] Allergy/AdvReac Type Severity Reaction Status Date / Time No Known Allergies Allergy Verified 08/10/21 13:20 Social History adopted: Yes Smoking Status: Never smoker Tobacco: How many years used: 40 how long ago did patient quit smoking: quit in November 2020 second hand exposure: No alcohol intake: current alcohol intake frequency: a few times a month substance use type: does not use ROS ROS ED Constitutional Constitutional ED: Denies chills, fever(s) or weight loss ENT ENT ED: Denies rhinorrhea or sore throat Cardiovascular Cardiovascular: Denies chest pain or palpitations Respiratory/Chest Respiratory/Chest: Denies dyspnea Gastrointestinal Gastrointestinal: Denies abdominal pain, constipation, diarrhea, melena, nausea or vomiting Genitourinary Genitourinary ED: Denies dysuria, hematuria or urinary frequency Musculoskeletal Musculoskeletal: Reports back pain Integumentary Denies rash Neurologic Neurologic: Reports paresthesias and other Details: Patient has no weakness or numbness but he does have radiation of pain sensation on his lateral left leg that radiates from the back. All of his back pain is the left lower back. ; Denies weakness Endocrine Endocrinology: Denies polydipsia or polyuria Hematologic/Lymphatic Hematologic/Lymphatic: Denies easy bleeding or easy bruising Allergic/Immunologic Allergic/Immunologic ED: Denies urticaria EXAM Physical Exam Const Vital Signs: 08/10/21 13:20 Temperature 97.8 F Temperature Source Temporal Pulse Rate 110 H Respiratory Rate 16 Blood Pressure 142/79 H Blood Pressure Mean 100 Pulse Ox 98 Oxygen Delivery Method Room Air Positive well nourished and well developed General Appearance ED: well developed and NAD HEENT Reports moist mucous membranes Eyes General Eye ED: Negative for pale conjunctiva or scleral icterus Neck no JVD Resp normal respiratory effort and clear to auscultation bilaterally Cardio regular rate and regular rhythm GI normal to inspection, nondistended, normoactive bowel sounds, soft to palpation, non-tender and non-distended Palpation: Negative for mass Back/Spine normal to inspection Back/Spine Narrative: Patient has lower left paraspinal tenderness. No skin changes. No bony tenderness. He has slight left buttock tenderness. No tenderness or swelling in the leg at all. No asymmetry. No distended veins. He outlines a narrow area on the lateral left calf where his pain refers to. Its not posterior calf. Distal pulses are also completely normal. Color is normal. Normal capillary refill and sensation. Extremity normal to inspection Extremity Narrative: See above. Neuro oriented x3 and no sensory deficits noted Neuro Narrative: Strength and sensation are normal. He has very good bilateral 2+ patellar reflexes. He has good 1?2+ bilateral ankle reflexes. No clonus. Sensorium / Orientation: alert Motor Exam: strength 5/5 throughout Psych mental status grossly normal Skin no rashes or lesions noted MDM MDM MDM Narrative Medical decision making narrative: I had a long talk with the patient. He does have back pain. He has symptoms of what is likely an S1 nerve root impingement. But no sign of bowel bladder dysfunction or weakness or numbness. I do not think he needs an acute MRI. I explained that the prednisone that he is taking will take sometimes several days to kick in. He has other medications for this. I do not think this patient is seeking meds. He is actually still working and getting on and off equipment and on and off of his tractor and skid steer because he is trying to get work done. We discussed trying to decrease this activity as I think is aggravating his back. I will give him medications here including a shot of Kenalog to see if we can accelerate his healing. We discussed that if he has bowel bladder dysfunction weakness or numbness he needs to return. Otherwise, he should try to give this a few days and see if we can get the medications to work. Discharge Plan Triage Chief Complaint: Back ED Provider: Sunil Negrete Dx/Rx/DC Orders Clinical Impression: Sciatica, Acute lumbar back pain Instructions: ED Sciatica Prescriptions: No Action atorvastatin [Lipitor] 20 mg tablet 20 mg PO DAILY Qty: 30 RF: 4 lisinopril 10 mg tablet See Rx Instructions .ROUTE .COMPLEX Qty: 30 RF: 4 finasteride 5 mg tablet 5 mg PO DAILY RF: 0 cyclobenzaprine 10 mg tablet 10 mg PO TID PRN (Reason: Muscle Spasm) RF: 0 naproxen [Naprosyn] 500 mg tablet 500 mg PO BID PRN (Reason: pain) Qty: 20 RF: 0 hydrocodone-acetaminophen 5-325 mg tablet 1 tab PO Q6H PRN (Reason: pain) 3 Days Qty: 10 RF: 0 cyclobenzaprine 10 mg tablet 10 mg PO BID PRN (Reason: muscle spasm) Qty: 10 RF: 0 prednisone 20 mg tablet 40 mg PO DAILY Qty: 8 RF: 0 aspirin 325 mg tablet 325 mg PO DAILY Qty: 30 RF: 3 Primary Care Provider: Fransisco Granado Referrals: Fransisco Granado MD [Primary Care Provider] - 3-5 Days Disposition Disposition: Home, Self Care
[2021-08-10] MEDS: Ketorolac 30 MG/ML Syringe IM (14:28)
[2021-08-10] MEDS: Triamcinolone Acetonide 40 MG/ML Vial IM (14:28)
[2021-08-10] MEDS: Orphenadrine 60 MG/2 ML Ampul IM (14:28)
[2021-08-10] MEDS: HYDROmorphone 1 MG/ML Syringe IM (14:29)
[2021-08-10 14:57] VITALS: BP 146/85; PULSE 89; RESP 16; O2SAT 96
== END 2021-08-10 15:00 | disposition home or self-care (01) ==
PROVIDERS: Emergency Provider Emergency Medicine; PCP Family Medicine; Visit Provider Emergency Medicine
DX: M54.42 Lumbago with sciatica, left side (principal); M79.7 Fibromyalgia; Z87.891 Personal history of nicotine dependence; E78.5 Hyperlipidemia, unspecified; Z85.828 Personal history of other malignant neoplasm of skin; Z79.899 Other long term (current) drug therapy; Z79.82 Long term (current) use of aspirin; N40.0 Benign prostatic hyperplasia without lower urinary tract symptoms
CPT/HCPCS: 96372; 99282; 99283

== ENCOUNTER → 2021-08-23 | Outpatient (CLI) | payer MEDICARE, OTHER, SELFPAY ==
--- NOTE | 2021-08-23 16:00 | MRI_ITS ---
STUDY: MR Spine Lumbar W/O Contrast 08/23/2021 4:32 PM REASON FOR EXAM: Male, 70 years old. LEFT leg pain and weakness DDD TECHNIQUE: MR Spine Lumbar W/O Contrast Standardized fat and water weighted pulse sequences were obtained. COMPARISON: xr Aug 02 2021 8:24am. CT Feb 25 2017 11:06am FINDINGS: Normal lumbar lordosis. There is no substantial scoliosis. There are calcifications of the abdominal aorta. This is consistent for atherosclerotic disease. There is NO abdominal aortic aneurysm. Vascular workup can be obtained based on clinical correlation. Normal conus medullaris that terminates at the L1. L1-2: Loss of intervertebral disc height. There is endplate spondylosis of the vertebral body. Normal central canal and intervertebral neuroforamina. There is bilateral facet arthropathy. L2-3: Loss of intervertebral disc height. There is endplate spondylosis of the vertebral body. Normal central canal and intervertebral neuroforamina. There is bilateral facet arthropathy. L3-4: Loss of intervertebral disc height. There is endplate spondylosis of the vertebral body. Normal central canal and intervertebral neuroforamina. There is bilateral facet arthropathy. There is bilateral ligamentum flavum thickening. L4-5: Loss of intervertebral disc height. There is endplate spondylosis of the vertebral body. There is bilateral ligamentum flavum thickening. Posterior disc herniation. Severe spinal stenosis with narrowing of the lateral recess. Mild compression of the descending bilateral L5 nerve roots. There is bilateral facet arthropathy. L5-S1: Loss of intervertebral disc height. There is endplate spondylosis of the vertebral body. There is bilateral facet arthropathy. Normal central canal and intervertebral neuroforamina. There is bilateral ligamentum flavum thickening. Normal visualized sacral ala. Normal visualized paraspinous soft tissue structures. MRI/Spine Lumbar (Routine) IMPRESSION: Multilevel degenerative changes, as described above. This is most significant at L4-5 there is a posterior disc herniation causing severe spinal stenosis and lateral recess stenosis. Electronically Signed: Sarthak Gil MD at 16:36 EDT ,
== END | disposition home or self-care (01) ==
LOC: MRI 15:26
PROVIDERS: PCP Family Medicine; Referring Provider Family Medicine; Visit Provider Family Medicine
DX: M51.36 Other intervertebral disc degeneration, lumbar region (principal)
CPT/HCPCS: 72148

== ENCOUNTER 2021-08-24 18:00 | Observation (INO) | payer MEDICARE, OTHER, SELFPAY ==
[2021-08-24] VITALS (8 sets, daily range): BP systolic 84–132; BP diastolic 33–72; PULSE 73–100; RESP 16–22; TEMP 36.6–36.7; O2SAT 96–99; BMI 23.7; BMI 21.4
--- NOTE | 2021-08-24 18:11 | EKG12_ITS ---
Test Reason : HYPOTENSION Blood Pressure : / mmHG Vent. Rate : 093 BPM Atrial Rate : 093 BPM P-R Int : 140 ms QRS Dur : 094 ms QT Int : 342 ms P-R-T Axes : 076 017 028 degrees QTc Int : 425 ms Normal sinus rhythm Normal ECG Confirmed by BEENA ASENCIO, ED ([id number]), mapping editor [place]CH ([id number]) on 08/26/2021 1:57:33 PM Referred By: Marino Mcmanus Confirmed By:ED HARGROVE MD
--- NOTE | 2021-08-24 18:11 | EX.ED.DYSGE1 ---
HPI History of Present Illness Chief Complaint: Hypotension Detail of Chief Complaint: Near syncope and low blood pressure Informant: patient and spouse/S.O. Narrative Narrative: Patient presents to the emergency department complaint of near syncope and an episode of low blood pressure. Patient states that he had been working on his tractor all day when he got off the tractor he felt like his arms were heavy and he felt lightheaded like he was going to pass out. Patient states that his then took his blood pressure and noted that his pressure was 83/55 and his pulse was 91. Patient states that he had been drinking water throughout the day. He denies any chest pain or shortness of breath. On arrival to the emergency department he states that he feels fine. He denies recent illness. Patient did have recent stroke. He denies any focal weakness at this time. Prior similar symptoms: No PFSH PFSH Medical History Arthritis Back pain Fibromyalgia History of back problems History of blood clots Hyperlipidemia Prostate disorder Skin cancer Home Medications finasteride 5 mg PO DAILY 11/26/20 [History Last Taken Unknown] atorvastatin 20 mg tablet 20 mg PO DAILY #30 tab 06/06/21 [Rx Last Taken Unknown] lisinopril 10 mg tablet See Rx Instructions .ROUTE .COMPLEX #30 tab 06/06/21 [Rx Last Taken Unknown] aspirin 325 mg tablet 325 mg PO DAILY #30 tab 07/04/21 [Rx Last Taken Unknown] cyclobenzaprine 10 mg PO BID PRN #10 tab 08/10/21 [Rx Last Taken Unknown] cyclobenzaprine 10 mg PO TID PRN 08/10/21 [History Last Taken Unknown] hydrocodone-acetaminophen 1 tab PO Q6H PRN 3 Days #10 tab 08/10/21 [Rx Last Taken Unknown] naproxen [Naprosyn] 500 mg PO BID PRN #20 tab 08/10/21 [Rx Last Taken Unknown] prednisone 40 mg PO DAILY #8 tab 08/10/21 [Rx Last Taken Unknown] Allergy/AdvReac Type Severity Reaction Status Date / Time No Known Allergies Allergy Verified 08/24/21 18:02 Social History adopted: Yes Smoking Status: Never smoker Tobacco: How many years used: 40 how long ago did patient quit smoking: quit in November 2020 second hand exposure: No alcohol intake: current alcohol intake frequency: a few times a month substance use type: does not use ROS ROS ED ROS Narrative Hypotension Constitutional Constitutional ED: Reports systems reviewed and no addt'l complaints, except as documented; Denies body ache(s), change in weight or chills Eyes Eyes: Denies acute decrease in peripheral vision, change in vision, double vision or loss of vision ENT ENT ED: Reports none; Denies ear pain, lip swelling, loss taste/smell, neck pain, otalgia or sore throat Cardiovascular Cardiovascular: Reports none; Denies abdominal pain, chest pain with activity, leg edema, lightheadedness, palpitations, rapid heart rate or syncope Respiratory/Chest Respiratory/Chest: Reports none; Denies change in mental status, dry cough, dyspnea, hemoptysis, shortness of breath at rest or shortness of breath with exertion Gastrointestinal Gastrointestinal: Reports none; Denies abdominal pain, change in stool character, diarrhea, hematemesis, hematochezia, melena, rectal bleeding or vomiting Genitourinary Genitourinary ED: Reports none; Denies abdominal discomfort, anuria, dysuria, genital pain or polyuria Musculoskeletal Musculoskeletal: Reports none; Denies arthralgias, back pain, difficulty walking, extremity pain, muscle weakness or myalgias Integumentary Reports none; Denies abscess or rash Neurologic Neurologic: Reports none and other Details: Dizziness and near syncope ; Denies abnormal gait, confusion, focal weakness, frequent falls, headache(s), loss of vision, numbness, paresthesias, radicular pain, vertigo or weakness Psychiatric Psychiatric: Reports systems reviewed and no addt'l complaints, except as documented and none; Denies behavioral changes, confusion, difficulty concentrating, hallucinations, suicidal ideation, tactile hallucinations or visual hallucinations Endocrine Endocrinology: Denies none, cold intolerance, excessive sweating, fatigue or heat intolerance Hematologic/Lymphatic Hematologic/Lymphatic: Reports none; Denies anemia, easy bleeding or easy bruising Allergic/Immunologic Allergic/Immunologic ED: Denies as per HPI, none, lip swelling, mouth swelling, throat swelling, tongue swelling or hives EXAM Physical Exam Const Vital Signs: 08/24/21 18:00 08/24/21 18:12 08/24/21 18:44 Temperature 98.1 F Temperature Source Temporal Pulse Rate 100 Pulse Rate [Lying] 81 Pulse Rate [Sitting (for 1 minute prior to obtaining)] 85 Respiratory Rate 18 Respiratory Effort Normal Respiratory Pattern Normal Blood Pressure 110/68 Blood Pressure [Lying] 110/60 Blood Pressure [Sitting (for 1 minute prior to obtaining)] 84/44 L Blood Pressure Mean 82 Blood Pressure Mean [Lying] 76 Blood Pressure Mean [Sitting (for 1 minute prior to obtaining)] 57 Pulse Ox 96 Oxygen Delivery Method Room Air 08/24/21 18:46 08/24/21 19:09 Temperature Temperature Source Pulse Rate 90 73 Pulse Rate [Lying] Pulse Rate [Sitting (for 1 minute prior to obtaining)] Respiratory Rate 22 H 16 Respiratory Effort Respiratory Pattern Blood Pressure 104/66 107/33 L Blood Pressure [Lying] Blood Pressure [Sitting (for 1 minute prior to obtaining)] Blood Pressure Mean 78 57 Blood Pressure Mean [Lying] Blood Pressure Mean [Sitting (for 1 minute prior to obtaining)] Pulse Ox 96 98 Oxygen Delivery Method Room Air Room Air Positive well nourished and well developed General Appearance ED: well developed and NAD HEENT Reports TM's clear and moist mucous membranes normocephalic and atraumatic; Negative for trauma or tenderness Tympanic Membrane ED: Yes TM's clear Eyes PERRL and EOMs intact bilaterally General Eye ED: Negative for pale conjunctiva or scleral icterus Neck no lymphadenopathy, supple and no JVD General: Negative for tenderness Chest Wall inspection of chest normal and palpation of chest normal Chest: Negative for tenderness Resp normal respiratory effort and clear to auscultation bilaterally Effort and Inspection: Negative for respiratory distress or pain with movement Auscultation: Negative for rhonchi, wheezes or diminished lung sounds Cardio regular rate, regular rhythm, S1 normal heart sound, S2 normal heart sound and no murmurs Peripheral Pulses: pulses 2+ throughout GI normal to inspection, nondistended, normoactive bowel sounds, soft to palpation, non-tender, non-distended and no masses Back/Spine no CVA tenderness and no thoracic nor lumbar tenderness Extremity normal to inspection General Extremety ED: Negative for edema General Extremity: Negative for edema Neuro oriented x3, CN's II-XII intact bilaterally, no sensory deficits noted and gait normal Sensorium / Orientation: awake, alert, oriented to person, oriented to place and oriented to time Motor Exam: strength 5/5 throughout and strength abnormal Psych mental status grossly normal Skin no rashes or lesions noted and no wounds MDM MDM MDM Narrative Medical decision making narrative: IV line established on arrival. Orthostatic vitals were positive with blood pressure dropping into the 80s with sitting from laying flat. Patient also noted to have acute kidney injury and signs of dehydration. We attempted to obtain a urinalysis on the patient however he is unable to void. I will order a bladder scan as he does state at times he has difficulty starting his stream. He was given a liter fluid bolus and case will be discussed with hospitalist evaluate for admission Lab Data Attestation: I reviewed the patient's lab results. Labs: Laboratory Results - last 24 hr 08/24/21 08/24/21 18:37 18:37 WBC 13.1 H RBC 4.29 L Hgb 13.9 Hct 41.8 MCV 97.4 H MCH 32.4 H MCHC 33.3 RDW Std Deviation 46.6 H RDW Coeff of Crispin 13.1 Plt Count 224 MPV 8.9 Immature Gran % (Auto) 0.700 Neut % (Auto) 83.3 H Lymph % (Auto) 8.4 L Archuleta % (Auto) 7.2 Eos % (Auto) 0.2 Baso % (Auto) 0.2 Absolute Neuts (auto) 10.9 H Absolute Lymphs (auto) 1.10 Nucleated RBC % 0 Sodium 139 Potassium 4.8 Chloride 109 H Carbon Dioxide 20.0 L Anion Gap 10 BUN 56 H Creatinine 2.46 H Estim Creat Clear Calc 29.79 Est GFR (MDRD) Af Amer 33 L Est GFR (MDRD) Non-Af 28 L BUN/Creatinine Ratio 22.8 H Glucose 122 H Calcium 9.2 Troponin I High Sens 16 Discharge Plan Triage Chief Complaint: Hypotension ED Provider: Hernandez Wayne Dx/Rx/DC Orders Clinical Impression: Orthostatic hypotension, Acute kidney injury, Dehydration Prescriptions: No Action atorvastatin [Lipitor] 20 mg tablet 20 mg PO DAILY Qty: 30 RF: 4 lisinopril 10 mg tablet See Rx Instructions .ROUTE .COMPLEX Qty: 30 RF: 4 finasteride 5 mg tablet 5 mg PO DAILY RF: 0 cyclobenzaprine 10 mg tablet 10 mg PO TID PRN (Reason: Muscle Spasm) RF: 0 naproxen [Naprosyn] 500 mg tablet 500 mg PO BID PRN (Reason: pain) Qty: 20 RF: 0 hydrocodone-acetaminophen 5-325 mg tablet 1 tab PO Q6H PRN (Reason: pain) 3 Days Qty: 10 RF: 0 cyclobenzaprine 10 mg tablet 10 mg PO BID PRN (Reason: muscle spasm) Qty: 10 RF: 0 prednisone 20 mg tablet 40 mg PO DAILY Qty: 8 RF: 0 aspirin 325 mg tablet 325 mg PO DAILY Qty: 30 RF: 3 Primary Care Provider: Fransisco Granado Referrals: Fransisco Granado MD [Primary Care Provider] - Disposition Disposition: Acute Care Hospital [facility]
[2021-08-24] MEDS: 0.9% Normal Saline 1,000 ML 1000 ML IV (18:44)
[2021-08-24 18:46] LABS: Absolute Neutrophil Count 10.9 X10^3/uL (2.0-7.7); Basophil# 0.03 X10^3/uL; Basophil% 0.2 % (0-1); Eosinophil# 0.02 X10^3/uL; Eosinophils% 0.2 % (0-5); Hematocrit 41.8 % (40-54); Hemoglobin 13.9 g/dL (13.0-16.5); Lymphocyte % 8.4 % (19-41); Mean Corp Hgb Conc 33.3 g/dL (32-36); Mean Corpuscular Hgb 32.4 pg (27.0-32.0); Mean Corpuscular Volume 97.4 fL (80-94); Mean Platelet Vol. 8.9 fl (6.2-12.0); Monocyte# 0.95 X10^3/uL; Monocyte% 7.2 % (0-10); NRBC Flagged by Analyzer 0 % (0-5); Neutrophil # 10.94 X10^3/uL (2.7-7.7); Neutrophil % 83.3 % (47-70); Platelet Count 224 K/mm3 (150-450); RBC Distribution Width CV 13.1 % (11.6-14.6); RBC Distribution Width SD 46.6 fl (35.1-43.9); Red Blood Count 4.29 M/mm3 (4.6-6.2); White Blood Count 13.1 K/mm3 (4.4-11.0)
[2021-08-24 19:02] LABS: Anion Gap 10 (5-15); BUN 56 mg/dL (7-18); BUN/Creat Ratio 22.8 RATIO (10-20); Calcium,Total 9.2 mg/dL (8.5-10.1); Chloride 109 mmol/L (98-107); Creatinine, Serum 2.46 mg/dL (0.70-1.30); EST Glomerular Filtration Rate 28 mL/min (>60); Est Glom Filt Rate - Afr Amer 33 mL/min (>60); Estimated Creatinine Clearance 29.79 ml/min; Glucose 122 mg/dL (74-106); Potassium 4.8 mmol/L (3.5-5.1); Sodium Level 139 mmol/L (136-145); Troponin-I HS 16 pg/mL (3.0-78.0)
--- NOTE | 2021-08-24 19:40 | HP.PCM.HOS_ITS ---
HPI - General General Date of Admission: 08/24/21 HPI Narrative REMBERTO VIDAL, is a 70 M with a significant history of hypertension; BPH on finasteride 7 CVA in November 2020; and former smoker who presents emergency department with presyncope. Patient was working on his tractor all day. When he got to the truck he was lightheaded and felt like passing out. His checked his blood pressure and his blood pressure was low. Associated with his symptoms is heaviness of his bilateral arms. His symptoms are persistent. Patient has been hydrating himself all day. He denies shortness of breath. No chest pain. He denies anorexia. He subsequently presented to the ED. At the emergency department patient was found to have orthostatic blood pressure. Patient received IV fluids at the emergency department that he thinks is secondary from his BPH. Of note patient reports decreased stream of urine. However his urinary volume however has not changed. At the emergency department reportedly bladder scan showed urine volume of about 150 mL. [facility] Medical History Arthritis Back pain Fibromyalgia History of back problems History of blood clots Hyperlipidemia Prostate disorder Skin cancer Home Medications finasteride 5 mg PO DAILY 11/26/20 [History Last Taken Unknown] atorvastatin 20 mg tablet 20 mg PO DAILY #30 tab 06/06/21 [Rx Last Taken Unknown] lisinopril 10 mg tablet See Rx Instructions .ROUTE .COMPLEX #30 tab 06/06/21 [Rx Last Taken Unknown] aspirin 325 mg tablet 325 mg PO DAILY #30 tab 07/04/21 [Rx Last Taken Unknown] gabapentin 300 mg PO TID 08/24/21 [History Last Taken Unknown] Allergy/AdvReac Type Severity Reaction Status Date / Time No Known Allergies Allergy Verified 08/24/21 18:02 Family History adopted adopted Surgical History no surgical history no surgical history Social History adopted: Yes Smoking Status: Never smoker Tobacco: How many years used: 40 how long ago did patient quit smoking: quit in November 2020 second hand exposure: No alcohol intake: current alcohol intake frequency: a few times a month substance use type: does not use ROS ROS Narrative Pertinent positives and pertinent negatives as noted in HPI. All other systems were reviewed and are negative. Vital Signs Vital Signs Vital Signs: 08/24/21 18:00 08/24/21 18:12 08/24/21 18:44 Temperature 98.1 F Temperature Source Temporal Pulse Rate 100 Pulse Rate [Lying] 81 Pulse Rate [Sitting (for 1 minute prior to obtaining)] 85 Respiratory Rate 18 Respiratory Effort Normal Respiratory Pattern Normal Blood Pressure 110/68 Blood Pressure [Lying] 110/60 Blood Pressure [Sitting (for 1 minute prior to obtaining)] 84/44 L Blood Pressure Mean 82 Blood Pressure Mean [Lying] 76 Blood Pressure Mean [Sitting (for 1 minute prior to obtaining)] 57 Pulse Ox 96 Oxygen Delivery Method Room Air 08/24/21 18:46 08/24/21 19:09 Temperature Temperature Source Pulse Rate 90 73 Pulse Rate [Lying] Pulse Rate [Sitting (for 1 minute prior to obtaining)] Respiratory Rate 22 H 16 Respiratory Effort Respiratory Pattern Blood Pressure 104/66 107/33 L Blood Pressure [Lying] Blood Pressure [Sitting (for 1 minute prior to obtaining)] Blood Pressure Mean 78 57 Blood Pressure Mean [Lying] Blood Pressure Mean [Sitting (for 1 minute prior to obtaining)] Pulse Ox 96 98 Oxygen Delivery Method Room Air Room Air Weight Weight: 79.379 kg Body Mass Index (BMI) 23.7 Physical Exam Narrative Physical exam: General: Well-nourished, well-developed. Head: Normocephalic, atraumatic, no tenderness Eyes: Vision is grossly intact. EOMI ENT, no trauma, moist mucous membranes, no rhinorrhea Neck: Nontender, full range of motion, no spinal tenderness, deformities, step- off CVS: Regular rate and rhythm. S1-S2 present. No murmur, gallop or rub. Respiratory : clear to auscultation bilaterally, chest wall nontender, no wheezing Abdomen: Soft, nontender, nondistended, normal bowel sounds, no masses : Deferred Back: Nontender, no CVA tenderness, no midline spinal tenderness, deformities, step-offs Extremities: Nontender full range of motion, no trauma Skin: Normal color, no trauma, abrasions Neuro: Alert, oriented, cranial nerves II through XII grossly intact. Psychiatry: Normal mood. Normal affect. Not depressed. Not anxious. Results Lab / Micro Data Result Diagrams: 08/24/21 18:37 08/24/21 18:37 Labs: Laboratory Results - last 24 hr 08/24/21 18:37: WBC 13.1 H, RBC 4.29 L, Hgb 13.9, Hct 41.8, MCV 97.4 H, MCH 32.4 H, MCHC 33.3, RDW Std Deviation 46.6 H, RDW Coeff of [place]pin 13.1, Plt Count 224, MPV 8.9, Immature Gran % (Auto) 0.700, Neut % (Auto) 83.3 H, Lymph % (Auto) 8.4 L, [place] % (Auto) 7.2, Eos % (Auto) 0.2, Baso % (Auto) 0.2, Absolute Neuts (auto) 10.9 H, Absolute Lymphs (auto) 1.10, Nucleated RBC % 0 08/24/21 18:37: Sodium 139, Potassium 4.8, Chloride 109 H, Carbon Dioxide 20.0 L , Anion Gap 10, BUN 56 H, Creatinine 2.46 H, Estim Creat Clear Calc 29.79, Est GFR (MDRD) Af Amer 33 L, Est GFR (MDRD) Non-Af 28 L, BUN/Creatinine Ratio 22.8 H , Glucose 122 H, Calcium 9.2, Troponin I High Sens 16 Assessment & Plan Assessment/Plan (1) Pre-syncope: (2) Orthostatic hypotension: (3) Acute kidney injury: (4) Dehydration: PLAN: Presyncope syncope Likely secondary to orthostatic blood pressures from dehydration. EKG independently reviewed showed normal sinus rhythm with no ST or T wave abnormalities. Review of requested the patient had echocardiogram on 11/26/2020 at [facility]. Echocardiogram at that time showed left ventricular ejection fraction of 55 to 60%. There was no hemodynamically significant valvular disease. Echocardiogram ordered. Initial high-sensitivity troponin troponin was negative. Orthostatic vitals per protocol JOSE/Dehydration/non anion gap metabolic acidosis. His creatinine presentation was 2.46. Review of record shows baseline creatinine of around 0.96. CO2 of 20 and a gap of 10. BUN is severely elevated at 56. BUN over creatinine is 22.8. Likely prerenal. IV hydration ordered. Trend BMP. Home lisinopril held avoid nephrotoxins. Leukocytosis Review of labs showed white count of 13.1. Likely reactive versus dehydration. Trend CBC. History of hypertension Patient on lisinopril for hypertension. Will discontinue lisinopril secondary to JOSE and hypotension on same day of presentation. Trend blood pressures DVT prophylaxis: SCDs ordered. Charges/Coding Visit Charges OBSV E&M: 48857 Initial observation care L3
[2021-08-24] MEDS: 0.9% Normal Saline 1,000 ML 150 ML IV (20:01)
[2021-08-24] MEDS: 0.9% Normal Saline 1,000 ML 100 ML IV (21:10)
[2021-08-24] MEDS: Gabapentin 100 MG Capsule 200 MG PO (22:16)
[2021-08-24] MEDS: Atorvastatin Calcium 20 MG Tablet PO (22:16)
[2021-08-24] MEDS: Heparin Injection (Vial) 5,000 UNIT/ML VIAL 5000 UNIT SC (22:17)
[2021-08-24 22:40] LABS: Bacteria 0 SEEN /hpf (None Seen); Mucous, Urine 0 SEEN /hpf (<or=2+); Red Blood Cells-Urine 0 SEEN /hpf (0-5); Squamous Epithelial Cells - UA 0 SEEN /hpf (0-5); White Blood Cells 0 SEEN /hpf (0-5)
[2021-08-24 22:43] LABS: Color, Urine Yellow (Yellow); Glucose, Dipstick Normal (Normal); Ketone-Dipstick Negative (Negative); Leukocyte Esterase-Dipstick Negative /ul (Negative); Nitrite-Dipstick Negative (Negative); Occult Blood-Urine Negative /ul (Negative); Protein-Dipstick Negative (Negative); Specific Gravity, Urine 1.015 (1.002-1.030); Urine Bilirubin Dipstick Negative (Negative); Urine Clarity Clear (Clear); Urine Urobilinogen Normal (Normal)
[2021-08-24 23:19] LABS: Calcium Oxalate Crystals Ur RARE /hpf (<or=2+); Hyaline Cast 5-10 SEEN /lpf (0-5)
[2021-08-25 02:38] VITALS: PULSE 75
[2021-08-25 05:00] VITALS: BP 114/77; PULSE 80; RESP 18; TEMP 36.6; O2SAT 98
[2021-08-25 05:12] VITALS: BP 113/82; BP 113/84; BP 114/77; PULSE 109; PULSE 81; PULSE 89
[2021-08-25] MEDS: Heparin Injection (Vial) 5,000 UNIT/ML VIAL 5000 UNIT SC (05:19)
[2021-08-25] MEDS: Gabapentin 100 MG Capsule 200 MG PO (05:19)
[2021-08-25] MEDS: 0.9% Normal Saline 1,000 ML 100 ML IV (05:20)
[2021-08-25 07:51] LABS: Absolute Lymphocyte Count 1.72 X10^3/uL (0.83-4.51); Absolute Neutrophil Count 5.3 X10^3/uL (2.0-7.7); Basophil# 0.03 X10^3/uL; Basophil% 0.4 % (0-1); Eosinophil# 0.14 X10^3/uL; Eosinophils% 1.8 % (0-5); Hemoglobin 12.3 g/dL (13.0-16.5); Lymphocyte # 1.72 X10^3/ul (0.83-4.51); Lymphocyte % 21.9 % (19-41); Mean Corp Hgb Conc 33.2 g/dL (32-36); Mean Corpuscular Hgb 32.6 pg (27.0-32.0); Mean Corpuscular Volume 98.1 fL (80-94); Monocyte# 0.66 X10^3/uL; Monocyte% 8.4 % (0-10); NRBC Flagged by Analyzer 0 % (0-5); Neutrophil # 5.28 X10^3/uL (2.7-7.7); Platelet Count 182 K/mm3 (150-450); RBC Distribution Width CV 13.2 % (11.6-14.6); RBC Distribution Width SD 47.7 fl (35.1-43.9); Red Blood Count 3.77 M/mm3 (4.6-6.2); White Blood Count 7.9 K/mm3 (4.4-11.0)
[2021-08-25 07:59] VITALS: PULSE 85
[2021-08-25 08:05] LABS: Anion Gap 6 (5-15); BUN 38 mg/dL (7-18); BUN/Creat Ratio 30.6 RATIO (10-20); Calcium,Total 8.5 mg/dL (8.5-10.1); Chloride 112 mmol/L (98-107); Creatinine, Serum 1.24 mg/dL (0.70-1.30); EST Glomerular Filtration Rate 61 mL/min (>60); Est Glom Filt Rate - Afr Amer 74 mL/min (>60); Estimated Creatinine Clearance 56.21 ml/min; Glucose 96 mg/dL (74-106); Potassium 4.7 mmol/L (3.5-5.1); Sodium Level 140 mmol/L (136-145)
--- NOTE | 2021-08-25 08:22 | PN.HOSP_ITS ---
Subjective Subjective Feels much better. States that he was in his tractor yesterday where the air conditioner was not working and there is very minimal ventilation. Patient said he was drinking a lot of fluids but also states that he was sweating a lot too. When he got out his arms felt heavy and then nearly passed out Objective Data Objective Data Vital Signs: Vital Signs Temp Pulse Resp BP Pulse Ox 36.6 C 85 18 114/77 98 08/25/21 05:00 08/25/21 07:59 08/25/21 05:00 08/25/21 05:12 08/25/21 05:00 Oxygen Delivery Method Room Air Weight: 73.8 kg Body Mass Index (BMI) 21.4 Intake & Output: Intake and Output for Last 24 Hours 08/23/21 08/24/21 08/25/21 23:59 23:59 23:59 Intake Total 1180 / 1380 1216.67 / 1216.67 Output Total 800 / 800 Balance 1180 / 980 416.67 / 416.67 Lab / Micro Data Result Diagrams: 08/25/21 07:19 08/25/21 07:19 Labs: Laboratory Results - last 24 hr 08/24/21 18:37: WBC 13.1 H, RBC 4.29 L, Hgb 13.9, Hct 41.8, MCV 97.4 H, MCH 32.4 H, MCHC 33.3, RDW Std Deviation 46.6 H, RDW Coeff of [place] 13.1, Plt Count 224, MPV 8.9, Immature Gran % (Auto) 0.700, Neut % (Auto) 83.3 H, Lymph % (Auto) 8.4 L, [place] % (Auto) 7.2, Eos % (Auto) 0.2, Baso % (Auto) 0.2, Absolute Neuts (auto) 10.9 H, Absolute Lymphs (auto) 1.10, Nucleated RBC % 0 08/24/21 18:37: Sodium 139, Potassium 4.8, Chloride 109 H, Carbon Dioxide 20.0 L , Anion Gap 10, BUN 56 H, Creatinine 2.46 H, Estim Creat Clear Calc 29.79, Est GFR (MDRD) Af Amer 33 L, Est GFR (MDRD) Non-Af 28 L, BUN/Creatinine Ratio 22.8 H , Glucose 122 H, Calcium 9.2, Troponin I High Sens 16 08/24/21 22:22: Urine Color Yellow, Urine Clarity Clear, Urine pH 6.0, Ur Specific [place] 1.015, Urine Protein Negative, Urine Glucose (UA) Normal, Urine Ketones Negative, Urine Occult Blood Negative, Urine Nitrite Negative, Urine Bilirubin Negative, Urine Urobilinogen Normal, Ur Leukocyte Esterase Negative, Urine RBC 0 SEEN, Urine WBC 0 SEEN, Ur Squamous Epith Cells 0 SEEN, Calcium Oxalate Crystal RARE, Urine Bacteria 0 SEEN, Hyaline Casts 5-10 SEEN, Urine Mucus 0 SEEN 08/25/21 07:19: WBC 7.9, RBC 3.77 L, Hgb 12.3 L, Hct 37.0 L, MCV 98.1 H, MCH 32.6 H, MCHC 33.2, RDW Std Deviation 47.7 H, RDW Coeff of [place] 13.2, Plt Count 182, MPV 9.0, Immature Gran % (Auto) 0.500, Neut % (Auto) 67.0, Lymph % (Auto) 21.9, [place] % (Auto) 8.4, Eos % (Auto) 1.8, Baso % (Auto) 0.4, Absolute Neuts (auto) 5.3, Absolute Lymphs (auto) 1.72, Nucleated RBC % 0 08/25/21 07:19: Sodium 140, Potassium 4.7, Chloride 112 H, Carbon Dioxide 22.0, Anion Gap 6, BUN 38 H, Creatinine 1.24, Estim Creat Clear Calc 56.21, Est GFR (MDRD) Af Amer 74, Est GFR (MDRD) Non-Af 61, BUN/Creatinine Ratio 30.6 H, Glucose 96, Calcium 8.5 Physical Exam Const alert and no apparent distress Resp normal respiratory effort, no retractions, no use of accessory muscles and clear to auscultation bilaterally Neuro Sensorium / Orientation: awake and alert Assessment & Plan Assessment/Plan (1) Orthostatic hypotension: (2) Acute kidney injury: (3) Dehydration: (4) Pre-syncope: PLAN: 1. JOSE * resolving w IVF * likely from dehydration 2. Orthostatic hypotension * 2/2 dehydration * Resolved 3. Left lower extremity radicular pain * Secondary to herniated disc. * Patient had an MRI 2 days ago that showed L4-5 posterior disc herniation ca using severe spinal stenosis. Explained to the patient's that is likely etiology of his symptoms. Patient does state that it waxes and wanes. Discussed with him that he would need to continue with physical therapy and also discussed with him about extension and proper lumbar support when he is sitting and to avoid flexion maneuvers is much as he is able.
[2021-08-25 08:25] VITALS: BP 122/77; BP 123/78; BP 137/91; PULSE 73; PULSE 84; PULSE 96
[2021-08-25 09:33] VITALS: BP 123/78; PULSE 72; RESP 16; TEMP 36.7; O2SAT 96
[2021-08-25] MEDS: Finasteride 5 MG Tablet PO (09:47)
[2021-08-25] MEDS: Aspirin 325 MG Tablet PO (09:47)
--- NOTE | 2021-08-25 10:47 | DCINST_ITS ---
Discharge Instructions Diet Discharge Diet: No restrictions Dressing / Incision Call your doctor if you observe: - (Saddle anesthesia. Bladder and bowel incontinence) Follow Up Care Please Follow Up With: Physical therapy at [facility] When: This next week Test Results: Test results from this visit will be discussed in further detail at your follow-up appointment, if applicable. Discharge Plan Admission Admit Date/Time: 08/24/21 19:42 Primary Reason for Your Visit: Acute kidney injury, near syncope Attending Provider: Binu Sow Primary Care Provider: Fransisco Granado Consulting Providers: Marino Mcmanus Discharge Orders/Prescriptions Prescriptions: Continued atorvastatin [Lipitor] 20 mg tablet 20 mg PO DAILY Qty: 30 RF: 4 finasteride 5 mg tablet 5 mg PO DAILY RF: 0 gabapentin 100 mg capsule 300 mg PO TID RF: 0 lisinopril 10 mg tablet 10 mg PO DAILY RF: 0 aspirin 325 mg tablet 325 mg PO DAILY Qty: 30 RF: 3 Referrals / Follow Up: Fransisco Granado MD [Primary Care Provider] - Disposition Disposition (needs filled in before D/C Order can be placed): Home, Self Care
--- NOTE | 2021-08-25 10:50 | DS.PCM_ITS ---
Providers Date of Admission: 08/24/21 Primary Care Physician: Dr. Fransisco Granado MD Reason For Visit: OTHOSTATIC HYPOTENSION;JOSE;DEHYDRATION Diagnosis Discharge Diagnosis (1) Orthostatic hypotension: Status: Acute Code(s): I95.1 - Orthostatic hypotension (2) Acute kidney injury: Status: Acute Code(s): N17.9 - Acute kidney failure, unspecified (3) Dehydration: Status: Acute Code(s): E86.0 - Dehydration (4) Pre-syncope: Status: Acute Code(s): R55 - Syncope and collapse Medications at Discharge Home Medications finasteride 5 mg PO DAILY 11/26/20 atorvastatin 20 mg tablet 20 mg PO DAILY #30 tab 06/06/21 aspirin 325 mg tablet 325 mg PO DAILY #30 tab 07/04/21 gabapentin 300 mg PO TID 08/24/21 lisinopril 10 mg PO DAILY 08/24/21 Hospital Course Summary of Care Provided Minutes Spent on Discharge: 35 Hospital Course: 1. JOSE resolving w IVF likely from dehydration from being in his tractor cab for several hours. Tractor cab was hot, minimal ventilation and the air conditioner was not working. Patient lost more fluids than he took in despite drinking copious amounts of fluid per his description. Patient advised in the future until the air conditioning is fixed to take frequent breaks to help prevent this from recurring again. 2. Orthostatic hypotension 2/2 dehydration Resolved 3. Left lower extremity radicular pain/sciatica Secondary to herniated disc. Patient had an MRI 2 days ago that showed L4-5 posterior disc herniation causing severe spinal stenosis. Explained to the patient's that is likely etiology of his symptoms. Patient does state that it waxes and wanes. Discussed with him that he would need to continue with physical therapy and also discussed with him about extension and proper lumbar support when he is sitting and to avoid flexion maneuvers is much as he is able. Weight / BMI Weight Weight: 73.8 kg Body Mass Index (BMI) 21.4 ABG / Lab / Microbiology Data Result Diagrams: 08/25/21 07:19 08/25/21 07:19 Laboratory: Laboratory Results - last 24 hr 08/24/21 18:37: WBC 13.1 H, RBC 4.29 L, Hgb 13.9, Hct 41.8, MCV 97.4 H, MCH 32.4 H, MCHC 33.3, RDW Std Deviation 46.6 H, RDW Coeff of Crispin 13.1, Plt Count 224, MPV 8.9, Immature Gran % (Auto) 0.700, Neut % (Auto) 83.3 H, Lymph % (Auto) 8.4 L, [place] % (Auto) 7.2, Eos % (Auto) 0.2, Baso % (Auto) 0.2, Absolute Neuts (auto) 10.9 H, Absolute Lymphs (auto) 1.10, Nucleated RBC % 0 08/24/21 18:37: Sodium 139, Potassium 4.8, Chloride 109 H, Carbon Dioxide 20.0 L , Anion Gap 10, BUN 56 H, Creatinine 2.46 H, Estim Creat Clear Calc 29.79, Est GFR (MDRD) Af Amer 33 L, Est GFR (MDRD) Non-Af 28 L, BUN/Creatinine Ratio 22.8 H , Glucose 122 H, Calcium 9.2, Troponin I High Sens 16 08/24/21 22:22: Urine Color Yellow, Urine Clarity Clear, Urine pH 6.0, Ur Specific [place] 1.015, Urine Protein Negative, Urine Glucose (UA) Normal, Urine Ketones Negative, Urine Occult Blood Negative, Urine Nitrite Negative, Urine Bilirubin Negative, Urine Urobilinogen Normal, Ur Leukocyte Esterase Negative, Urine RBC 0 SEEN, Urine WBC 0 SEEN, Ur Squamous Epith Cells 0 SEEN, Calcium Oxalate Crystal RARE, Urine Bacteria 0 SEEN, Hyaline Casts 5-10 SEEN, Urine Muc us 0 SEEN 08/25/21 07:19: WBC 7.9, RBC 3.77 L, Hgb 12.3 L, Hct 37.0 L, MCV 98.1 H, MCH 32.6 H, MCHC 33.2, RDW Std Deviation 47.7 H, RDW Coeff of Crispin 13.2, Plt Count 182, MPV 9.0, Immature Gran % (Auto) 0.500, Neut % (Auto) 67.0, Lymph % (Auto) 21.9, [place] % (Auto) 8.4, Eos % (Auto) 1.8, Baso % (Auto) 0.4, Absolute Neuts (auto) 5.3, Absolute Lymphs (auto) 1.72, Nucleated RBC % 0 08/25/21 07:19: Sodium 140, Potassium 4.7, Chloride 112 H, Carbon Dioxide 22.0, Anion Gap 6, BUN 38 H, Creatinine 1.24, Estim Creat Clear Calc 56.21, Est GFR (MDRD) Af Amer 74, Est GFR (MDRD) Non-Af 61, BUN/Creatinine Ratio 30.6 H, Glucose 96, Calcium 8.5 D/C Instructions Discharge Diet: No restrictions Call your doctor if you observe: - (Saddle anesthesia. Bladder and bowel incontinence) Please Follow Up With: Physical therapy at [facility] When: This next week Meaningful Use Info Meaningful Use Diagnoses (Choose all that apply): None applicable Discharge Plan Admission Admit Date/Time: 08/24/21 19:42 Primary Reason for Your Visit: Acute kidney injury, near syncope Attending Provider: Binu Sow Primary Care Provider: Fransisco Granado Consulting Providers: Marino Mcmanus Discharge Orders/Prescriptions Prescriptions: Continued atorvastatin [Lipitor] 20 mg tablet 20 mg PO DAILY Qty: 30 RF: 4 finasteride 5 mg tablet 5 mg PO DAILY RF: 0 gabapentin 100 mg capsule 300 mg PO TID RF: 0 lisinopril 10 mg tablet 10 mg PO DAILY RF: 0 aspirin 325 mg tablet 325 mg PO DAILY Qty: 30 RF: 3 Referrals / Follow Up: Fransisco Granado MD [Primary Care Provider] - Disposition Disposition (needs filled in before D/C Order can be placed): Home, Self Care Charges/Coding Visit Charges OBSV E&M: 27592 Observation care discharge
== END 2021-08-25 10:50 | disposition home or self-care (01) ==
LOC: ED 19:39 → PCU 20:05
PROVIDERS: Admitting Provider Hospitalist; Emergency Provider Emergency Medicine; PCP Family Medicine; Referring Provider Hospitalist
DX: I95.1 Orthostatic hypotension (principal); N17.9 Acute kidney failure, unspecified; E86.0 Dehydration; M48.061 Spinal stenosis, lumbar region without neurogenic claudication; I10 Essential (primary) hypertension; Z87.891 Personal history of nicotine dependence; E78.5 Hyperlipidemia, unspecified; M51.16 Intervertebral disc disorders with radiculopathy, lumbar region; Z79.899 Other long term (current) drug therapy; Z79.82 Long term (current) use of aspirin; M79.7 Fibromyalgia; N40.0 Benign prostatic hyperplasia without lower urinary tract symptoms; Z86.73 Personal history of transient ischemic attack (TIA), and cerebral infarction without residual deficits
CPT/HCPCS: 36415; 80048; 81001; 84484; 85025; 93005; 96360; 96361; 96372; 99218; 99284; J7030; A4216; G0378

== ENCOUNTER 2021-08-28 18:30 | Outpatient (RCR) | payer MEDICARE, OTHER, SELFPAY ==
--- NOTE | 2021-08-13 14:07 | HP.PTEVAL ---
Patient's Visit Information REMBERTO VIDAL is a 70 year old M referred to Physical Therapy by Dr. Fransisco Najera MD with a diagnosis of BACK PAIN. Date of Evaluation: 08/13/21 Physical Therapist: Heather Rubalcava PT, Cert MDT - Visit Plan Frequency: 2-3x /Week Duration: 4-6 Weeks Plan: CONSIDER AQUATIC THERAPY AFTER ONE TO TWO VISITS IF NOT MAKING PROGRESS. POSTURE CORRECTION/STRENGTHENING, INSTRUCTION IN APPROPRIATE BODY MECHANICS AND ACTIVITY MODIFICATIONS. DLS STARTING WITH A NEUTRAL SPINE PROGRESSING ROM TOLERATED. DINORA LE ROM, STRETCHING AND STRENGTHENING. HEP INSTRUCTION. 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 NORMALLY WORKS 40+ HOURS A WEEK. Disability: NO. Present symptoms: NO LOW BACK PAIN. LEFT HIP, THIGH AND LEG PAIN/SORENESS. SOMETIMES GETS LLE NUMBNESS AND TINGLING. NO RIGHT LE SX'S. NO GROIN PAIN. Present since: ABOUT 2 WEEKS AGO. Pain Scale: WORST 9/10, LEAST 0/10. Currently: 0/10 SITTING, 8/10 WALKING, 10/10 TRYING TO STAND UP STRAIGHT. Commenced as a result of: DOING ABOUT 50 POSTS JUMPING IN AND OUT OF BUCKET. Symptoms at onset: LEFT HIP PAIN. Worse: STANDING, WALKING, TRYING TO STAND UP STRAIGHT, TWISTING LEFT LEG. TRYING TO DO EX'S. Better: SITTING, LYING DOWN. Disturbed sleep: YES. 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 YEARS AGO WENT TO SPINE DOCTOR IN [place] AND DX'D WITH FIBROMYALGIA. NO BACK SURGERY BUT IN [place] WHEN 21 YEARS OLD BACK SURGERY RECOMMENDED. WENT TO [facility] 2X'S IN ONE DAY AND NEXT DAY THURSDAY AND THURSDAY AND IT MADE IT WORSE. REPORTS THIS IS THE FIRST TIIME TO [facility] IN 20+ YEARS. NO MODESTO'S THAT PATIENT CAN RE-CALL. Treatment this episode: ED 2X'S IN LAST WEEK WITHOUT BENEFIT. STEROIDS, MORPHINE AND OTHER. DR. NAJERA X 1 SINCE THIS FLARE UP. Coughing/sneezing/straining: NEGATIVE. Gait: TERRIBLE. UNABLE TO STAND UP STRAIGHT. I FEEL LIKE 89 YEAR OLD MAN. Difficulty initiating urination: NO. BOWEL AND BLADDER DYSFUNCTION: DENIES. Accidents: NO. Unexplained weight loss: NO. Imaging: STUDY: X-RAY - LUMBOSACRAL SPINE. REASON FOR EXAM: Male, 70 years old. ddd. TECHNIQUE: Six view(s) of the lumbosacral spine were obtained. COMPARISON: 03/29/2014. . FINDINGS: Unremarkable lumbar lordosis. There is no substantial scoliosis. There is. unremarkable alignment of the vertebrae. Multilevel degenerative endplate changes visualized, no evidence of. compression deformity of the lumbar vertebral bodies is seen. Subtle grade 1 anterolisthesis of L3 over L4 is seen that demonstrates no. significant variation in different positions. Extensive hypertrophic changes in the posterior column consistent with. facet arthrosis. Atherosclerotic calcifications visualized in the abdominal aorta. . RAD/L/S Spine w Bend Min 6 Vw. IMPRESSION: Degenerative changes of the lumbar spine demonstrating slight progression. in comparison to the prior study, no acute osseous abnormality is seen. . Electronically Signed: Michael Vale MD. at 8:49 EDT. Reading Location ID and State: [id number] / [place]. PMH: NOV 2020 - CVA - FULL RECOVERY FAR PATIENT KNOWS. HTN, HIGH CHOLESTROL. PLOF (Prior Level of Function): UNLIMITED - Objective Sitting/Standing Posture: POOR. RIGHT LATERAL SHIFT BUT ABLE TO CROSS MIDLINE TO THE LEFT. REDUCED LUMBAR LORDOSIS. STANDS WITH INCRASED TRUNK FLEXION AND L KNEE FLEXION. Active Correction of posture: WORSE - INCREASES L LEG PAIN TO 8/10 IMMEDIATELY. Other Observations: THIS PATIENT AMBULATES INDEP'LY INTO PT WITHOUT ANY ASSISTIVE DEVICES WITH A MAJOR LIMP ON HIS LEFT LE. HE IS WALKING WITH EXCESSIVE TRUNK FLEXION AND RIGHT HIP/KNEE FLEXION. Sensory deficit: DINORA LE LIGHT TOUCH SENSAITON GROSSLY INTACT AND SYMMETRICAL. ROM deficit: TIGHT DINORA LE HIP FLEXOR, HS AND GASTROC SOLEUS COMPLEX TIGHTNESS LEFT > RIGHT. DECREASED L HIP IR COMPARED TO RIGHT BUT NO GROIN PAIN WITH TESTING. Motor deficit: DINORA LE STRENGTH 5/5 EXCEPT LEFT HIP 4/5. Reflexes: 2/3 DINORA LE'S EXCEPT L ACHILLES 1/2. Dural Signs: POSITIVE L LE. Lumbar mvmt loss: flex - MOD. ext - CHRISTINE. R SG - MOD. L SG - CHRISTINE. PATIENT C/O SEVERE L LEG PAIN WITH EXTENSION AND L SG TESTING. DECREASED LLE PAIN WITH FLEXION AND R SG. Core strength: GOOD. Palpation: TENDERNESS L HIP, LATERAL THIGH AND LATERAL LEG. OTHER: UNABLE TO LIE SUPINE WITH LEGS EXTENDED BUT ABLE TO GET COMFORTABLE LYING SUPINE HOOKLYING. TREATMENT: NEUROMUSCULAR REEDUCATION - RETRAINING OF MVMT AND POSTURE FOR SITTING, LYING AND STANDING ACTIVITIES. INSTRUCTED IN SKTC. TRIED LTR BUT SX'S PERIPHERALIZED. - Balance/Special Test Scores Oswestry Low Back Score: 32 - Goals Goal 1:: DECREASE C/O LLE PAIN Goal Time Frame: 4-6 Weeks Goal 2:: IMPROVE PERSONAL CARE, LIFTING, WALKING, SITTING, STANDING, SLEEP, SOCIAL LIFE, TRAVEL AND WORK/HOMEMAKING FUNCTION. Goal Time Frame: 4-6 Weeks Goal 3:: INSTRUCT IN PROPHYLAXIS Goal Time Frame: 4-6 Weeks - Anticipated Interventions Patient/Client Instruction: Educate patient on: Condition, Plan of Care, Risk Factors For the Purpose of:: To improve self management Therapeutic Exercise to Include: Strength training, Body mechanics, Postural training, Flexibilty training, Neuromotor development, In an aquatic setting, Dynamic Lumbar Stabilization For the Purpose of:: To decrease pain, To improve muscle performance and motor function, To increase tolerance to activity/condition/position, To improve ability of physical actions for home/community/work/leisure Cryotherapy (ice pack, ice massage): Yes Thermo therapy (hot pack): Yes Ultrasound (thermal/non thermal): Yes For the Purpose of:: To decrease pain, To improve nutrient delivery to tissue Thank you for the opportunity to evaluate your patient. For Medicare and Medicare HMO plans, please review the plan of care and approve it. It will need to be FAXED BACK to us at [phone] for Medicare purposes. For Medicare only, by signing this I certify the plan of care. Please let me know if there are questions or concerns regarding this plan of care. Physician Signature: Date:
--- NOTE | 2022-01-21 13:00 | HP.PT.NRP ---
REMBERTO VIDAL was seen in my office for initial evaluation on 08/13/21. The following Plan of Care was established for this patient: Initial Frequency: 2-3x /Week Initial Duration: 4-6 Weeks Patient/Client Instruction: Educate patient on: Condition, Plan of Care, Risk Factors For the Purpose of:: To improve self management Therapeutic Exercise to Include: Strength training, Body mechanics, Postural training, Flexibilty training, Neuromotor development, In an aquatic setting, Dynamic Lumbar Stabilization For the Purpose of:: To decrease pain, To improve muscle performance and motor function, To increase tolerance to activity/condition/position, To improve ability of physical actions for home/community/work/leisure Cryotherapy (ice pack, ice massage): Yes Thermo therapy (hot pack): Yes Ultrasound (thermal/non thermal): Yes For the Purpose of:: To decrease pain, To improve nutrient delivery to tissue This patient was last seen in our office 08/28/21. Pertinent comments regarding their Physical therapy will appear below: This patient has not returned to Physical Therapy and is appropriate to return to MD for further follow-up as needed. At this point I will be discontinuing this patient from physical therapy. I would be happy to see this patient again in the future if found appropriate by the physician. Thank you! Heather Rubalcava, PT, Cert MDT Balance/Gait/Functional tests - Balance/Special Test Scores Oswestry Low Back Score: 32
== END 2021-08-28 19:00 | disposition home or self-care (01) ==
LOC: PT 18:30
PROVIDERS: PCP Family Medicine; Referring Provider Family Medicine; Visit Provider Family Medicine
DX: M54.9 Dorsalgia, unspecified (principal)
CPT/HCPCS: 97035; 97112; 97162; 97530

== ENCOUNTER → 2021-10-07 | Outpatient (CLI) | payer MEDICARE, OTHER, SELFPAY ==
[2021-10-07 09:15] LABS: AST(SGOT) 16 U/L (15-37); Alanine Aminotransfer ALT/SGPT 23 U/L (16-61); Albumin, Serum 3.6 g/dL (3.2-5.0); Alkaline Phosphatase 81 U/L (45-117); Bilirubin, Direct 0.16 mg/dL (0.00-0.30); Cholesterol 164 mg/dL (200); Globulin 3.3 g/dL (2.2-4.2); High Density Lipoprotein 58 mg/dL; Protein, Total 6.9 g/dL (6.4-8.2); Triglycerides 129 mg/dL; Very Low Density Lipoprotein 26 mg/dL (5-40)
== END | disposition home or self-care (01) ==
LOC: LAB 07:24
PROVIDERS: PCP Family Medicine; Referring Provider Psychiatry & Neurology Neurology; Visit Provider Psychiatry & Neurology Neurology
DX: E78.5 Hyperlipidemia, unspecified (principal)
CPT/HCPCS: 36415; 80061; 80076

== ENCOUNTER 2021-10-15 07:01 | Inpatient (IN) | payer MEDICARE, OTHER, SELFPAY ==
[2021-10-07 08:27] LABS: Absolute Neutrophil Count 5.5 X10^3/uL (2.0-7.7); Basophil# 0.05 X10^3/uL; Basophil% 0.7 % (0-1); Eosinophil# 0.16 X10^3/uL; Eosinophils% 2.1 % (0-5); Hemoglobin 14.4 g/dL (13.0-16.5); Lymphocyte % 15.9 % (19-41); Mean Corp Hgb Conc 33.5 g/dL (32-36); Mean Corpuscular Hgb 32.9 pg (27.0-32.0); Mean Corpuscular Volume 98.2 fL (80-94); Mean Platelet Vol. 9.4 fl (6.2-12.0); Monocyte# 0.62 X10^3/uL; Monocyte% 8.2 % (0-10); NRBC Flagged by Analyzer 0 % (0-5); Neutrophil # 5.46 X10^3/uL (2.7-7.7); Neutrophil % 72.6 % (47-70); Platelet Count 230 K/mm3 (150-450); RBC Distribution Width SD 46.8 fl (35.1-43.9); Red Blood Count 4.38 M/mm3 (4.6-6.2); White Blood Count 7.5 K/mm3 (4.4-11.0)
[2021-10-07 09:07] LABS: Magnesium 2.2 mg/dL (1.6-2.6)
[2021-10-07 09:54] LABS: HIV - WCH Non-Reactive (Nonreactive); Hepatitis B Surface Antibody Non-Reactive; Hepatitis C Antibody Non-Reactive (Nonreactive)
[2021-10-08 07:56] LABS: Hepatitis A AB, Total Negative (Negative)
[2021-10-15] VITALS (11 sets, daily range): BP systolic 101–138; BP diastolic 58–83; PULSE 56–98; RESP 12–18; TEMP 36.1–37.4; O2SAT 97–100; BMI 21.8; BMI 22.1
--- NOTE | 2021-10-15 | DISC_PTH ---
PATIENT: REMBERTO VIDAL LOC: MS3 U#:[id number] AGE/SX: 71/M [place] [facility] [place]: Dr. Vishnu Busch DO : 1950 BED: 1 DIS: 10/17/2021 SPEC #: [id number] RECD: 10/15/21 12:35 STATUS: MIREYA RESathish #: [id number] TYLER: 10/15/21 00:[address]: Vishnu Busch DEPT: SURGICAL PATHOLOGY RECD BY: Yo Morgan ENTERED: 10/15/21 13:53 SP TYPE: DISC OTHR DR: Dr. Jalen Granado MD Tissues: Intervertebral disc, NOS Procedures: Surgery Specimen Level III HEADER OPERATION: ERAS, lumbar laminectomy L4-L5 PRE-OP DIAGNOSIS: Herniated nucleus pulposus, L4-L5 left TISSUE SUBMITTED: L4-L5 disc MICROSCOPIC DIAGNOSIS L4-L5 disc: Pieces of fibrocartilaginous tissue with reactive and degenerative changes. JEREMIAH:angi 10/16/2021 MICROSCOPIC DESCRIPTION Slides are reviewed. GROSS DESCRIPTION Received in fixative is one container labeled with the patient's name and designated L4-L5 disc. The specimen consists of two elongated fragments of pink-white indurated tissue measuring in aggregate 2.2 x 2 x 0.2 cm. The specimen is totally submitted in one cassette. / AM:angi 10/15/2021 TC:5 CPT: 66293
[2021-10-15] MEDS: Acetaminophen 500 MG Tablet 1000 MG PO ×3 (06:13→22:03)
[2021-10-15] MEDS: Lactated Ringers 1,000 ML 15 ML IV (06:13)
[2021-10-15 06:21] LABS: Bedside Glucose 81 mg/dL (74-106)
--- NOTE | 2021-10-15 07:07 | PCM.HP.BLA ---
History and Physical Acct: [id number] Name:REMBERTO FINK Rep #: [id number] : 1950 ? ? Provider: Dr. Vishnu Busch, DO Age/Sex:? 71/M ? ? Location: [facility] [place] Status: Signed Intake Vital Signs ? 09/07/2207:31 Height 6 ft Weight: 164 lb BMI 22.2 Intake Visit Reasons:?Lumbar spine Chief Complaint: Near Syncope Allergies No Known Allergies Allergy (Verified 09/06/21 08:28) Medications finasteride 5 mg PO DAILY 11/26/20 [History Confirmed 09/06/21] atorvastatin 20 mg tablet 20 mg PO DAILY #30 tab 06/06/21 [Rx Confirmed 09/06/21] aspirin 325 mg tablet 325 mg PO DAILY #30 tab 07/04/21 [Rx Confirmed 09/06/21] gabapentin 300 mg PO TID 08/24/21 [History Confirmed 09/06/21] PFSH Medical History? Acute CVA (cerebrovascular accident) Arthritis Back pain Carotid artery narrowing Cerebrovascular accident (CVA) Chronic pain Fibromyalgia History of back problems History of blood clots Hyperlipidemia Hypertension Insomnia Kidney stones Prostate disorder Skin cancer Social History? adopted:? Yes Smoking Status:? Never smoker Tobacco: How many years used:? 40 how long ago did patient quit smoking:? quit in November 2020 second hand exposure:? No alcohol intake:? current alcohol intake frequency: a few times a month substance use type:? does not use HPI Lumbar spine Details: Parts of this documentation were recorded by a scribe, this documentation accurately reflects the service provided and the decisions made by me, Dr. Vishnu Busch, DO 09/06/2128. REMBERTO ANN is a 71 year old M NEW here today for? low back pain that he has been having for about the last 6-8 weeks. 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 The pain has progressively gotten worse. He has been to the ED twice for this pain. They have given him pain injections at the ED which did not help. His PCP has also given him gabapentin and oxycodone which was not helpful at all. He states that he has left leg pain into his calf and he occasionally has numbness in his left foot. He has no pain with sitting/resting. He has this leg pain with standing and walking. Mr. Ann is a most pleasant gentleman whose complaint is pain on the left lower back that radiates into his buttocks his thigh and down his left leg.? This started a couple of months ago as mentioned above by my scribe.? The pain has been quite severe and even oxycodone does nothing for it.? 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 All he knows to do his work hard.? Likely he has some help as he has several sons.? He has no right leg pain whatsoever. Examination with extension of his lumbar spine increases the pain dramatically.? Bending forward not so much.? He has mild anterior tibialis weakness on the left as compared to the right.? The other muscles are good.? He has 2+ patella Achilles and posterior tibialis reflexes.? He has no long tract signs.? Clonus is absent Babinski's are downgoing. I reviewed plain x-rays of his lumbar spine that demonstrate some degenerative changes though none severe.? I reviewed the MRI scan that was done recently that demonstrates that he has a large herniated disc of L4-5 to the left side in addition to the already pre-existing spinal stenosis at that level.? The herniation I came out L4-5 and went behind the L5 vertebral body about three fourths of the way down to the next level which would be L5-S1.? It is rather dramatic in size.? Obviously he will need surgical decompression with removal of the free fragment of disc.? We will probably only do a left-sided laminectomy at L4-5.? We will have to do a laminotomy at the top of L5 to reach the extruded fragments.? I will see him again at preop. Coding Level of Care Code Off vis,new,level 3 Diagnoses Herniated nucleus pulposus, L4-5 left? M51.26
--- NOTE | 2021-10-15 07:30 | RAD_ITS ---
STUDY: X-RAY - LUMBAR SPINE REASON FOR EXAM: Male, 71 years old. Marker for laminectomy TECHNIQUE: Single lateral view(s) of the lumbar spine were obtained. COMPARISON: 08/02/2021 FINDINGS: A surgical instrument has been attached to the spinous process posterior to L5. Normal lumbar lordosis. There is no substantial scoliosis. There is a normal alignment of the vertebrae. There is multilevel endplate spondylosis of the lumbar vertebrae. Normal disc space heights. There is no demonstrated fracture. There is atherosclerotic calcification of the abdominal aorta without a demonstrated aneurysm. RAD/Spine 1 View Any Level IMPRESSION: Surgical instrument attached to the spinous process posterior to L5 Age consistent degenerative changes, no acute findings Electronically Signed: Trent Ndiaye MD at 11:56 EDT ,
[2021-10-15] MEDS: Cefazolin 2 GM in 0.9% Normal Saline 100 ML IV (08:00)
[2021-10-15] MEDS: Lactated Ringers 1,000 ML 100 ML IV ×2 (08:30→12:05)
[2021-10-15] MEDS: THROMBIN (RECOMBINANT) 20,000 UNIT VIAL 20000 UNIT TOPICAL (08:36)
--- NOTE | 2021-10-15 11:05 | PCM.OPRPT ---
Report of Operation Description of Surgical Findings:: Preoperative diagnosis: Herniated disc L4-5 with left L5 radiculopathy Postoperative diagnosis: The same Procedure: Lumbar laminectomy L4-5 on the left with discectomy Surgeon: Dr. Busch recovery assistant: Riana VAUGHAN Second Investigative Research Specialist: Felicia Bhakta NP Anesthesia: General endotracheal administered by [facility] Estimated blood loss: Less than 30 cc Drains: None Complications: Small dural leak Procedure: Patient was taken to the OR where he was placed under general endotracheal anesthesia. A Butts catheter was inserted. Neuro monitoring then placed their leads on the patient. We then placed the patient in the prone position on the Sp frame. After appropriate positioning with care to protect his bony prominences his genitalia the brachial plexus bilaterally the ulnar nerves of both elbows the cervical spine and facial features the back was prepped and draped standard fashion. I then made a longitudinal incision centered over L4-5. Subcutaneous tissues were incised the length of the skin incision. I then opened the lumbar fascia to the left of the spinous processes using cautery and elevated the paravertebral muscles off the lamina of 5 and the lamina of 4. An intraoperative x-ray was taken with a marker in place that confirmed that we were at their a lot right level. Continue to elevate the muscles lateralward out over the L4-5 facet. A Giovana retractor was then put in place. I then released the ligamentum flavum off the underside of the lamina of L4. We then carried out the laminectomy with both double-action rongeurs and 45 degree Kerrison rongeurs I then remove the ligamentum flavum in retrograde fashion. On one of the last bites to remove the ligamentum flavum off the lateral side we made a little dural leak were able to control it with cottonoids. We continued the surgery. I then have to perform laminectomy of the top of L5 as the discs went down quite far. This was done again with 45 degree Kerrison rongeurs. I then kept the cottonoids up against the dural leak and retracted the dura medialward both above and below the exit where the L5 nerve exited. We found the free fragments right in the axilla of the L5 nerve. I removed 2 large fragments and a couple of smaller fragments with pituitary rongeurs. These were controlled with bipolar cautery and thrombin-soaked Gelfoam. Then thorough ear irrigated with copious amounts of sterile saline as we did several times in the course of the case. Then remove the cottonoids off of the dura where the hole was observed. It was a small hole in the lended itself well to the use of DuraGen. Placed DuraGen directly over a couple of layers. Above and below where the hole was replaced amniotic membrane to prevent adhesions. Then placed Gelfoam over the the entire laminotomies. Because of the leak we decided not to put a drain in I closed the lumbar fascia using [id number] suture with #1 Vicryl followed by closure of subcutaneous tissues with 2-0 Vicryl in interrupted fashion and skin was approximated using skin clips sterile dressings were applied the patient was then recovered in the OR moved to his hospital bed and taken to recovery in satisfactory condition. The end of operative summary on Devang Ann. This is Dr. Busch dictating.
[2021-10-15] MEDS: Finasteride 5 MG Tablet PO (13:40)
[2021-10-15] MEDS: Gabapentin 300 MG Capsule PO ×2 (13:41→22:08)
[2021-10-15] MEDS: Atorvastatin Calcium 20 MG Tablet PO (13:41)
[2021-10-15] MEDS: Lisinopril 10 MG Tablet PO (13:41)
[2021-10-15] MEDS: Ensure Surgery 237 ML LIQUID PO ×2 (13:45→16:46)
--- NOTE | 2021-10-15 13:48 | PCM.PN.HOSP ---
Documented by User: Maria R Monique NP, CUSTOMER SERVICE ATTENDANT-C 10/15/21 14:13 Subjective Subjective Patient seen and examined. Hospitalist services consulted for medical management. Pain currently controlled. Objective Data Objective Data Vital Signs: Vital Signs Temp Pulse Resp BP Pulse Ox O2 Del Method O2 Flow Rate 97.6 F L 69 18 132/82 H 100 Nasal Cannula 4 10/15/21 12:45 10/15/21 12:45 10/15/21 12:45 10/15/21 12:45 10/15/21 12:45 10/15/21 12:45 10/15/21 12:45 FiO2 38 10/15/21 10:48 Oxygen Flow Rate (L/min) 4 Oxygen Delivery Method Nasal Cannula Weight: 163 lb 2.273 oz Body Mass Index (BMI) 22.1 Intake & Output: Intake and Output for Last 24 Hours 10/13/21 10/14/21 10/15/21 23:59 23:59 23:59 Intake Total 2212 / 2212 Output Total 340 / 340 Balance 1872 / 1872 Lab / Micro Data Result Diagrams: 10/07/21 07:28 Labs: Laboratory Results - last 24 hr 10/15/21 06:06: POC Glucose 81 Micro: Microbiology 10/07/21 07:28 Swab (Method) Nasal Screen MRSA/MSSA - Final Radiography Diagnostic Testing: Radiology Impression Spine X-Ray 10/15/21 07:30 IMPRESSION: Surgical instrument attached to the spinous process posterior to L5 Age consistent degenerative changes, no acute findings Electronically Signed: Trent Ndiaye MD at 11:56 EDT Reading Location ID and State: [address] [place] [address] , Service support , Physical Exam Const alert, oriented x3 and no apparent distress Orientation / Consciousness: awake, oriented to person, oriented to place and oriented to time HEENT normocephalic and moist oral mucous membranes Eyes PERRL, EOMs intact bilaterally and conjunctivae normal Neck no lymphadenopathy Resp normal respiratory effort and clear to auscultation bilaterally Cardio regular rate, regular rhythm and no murmurs Peripheral Pulses: pulses 2+ throughout GI normal to inspection, nondistended, normoactive bowel sounds, non-tender and non-distended Extremity normal to inspection Skin no rashes or lesions noted Lesions: no lesions Rashes: no rashes Trauma: no lacerations or abrasions Neuro CN's II-XII intact bilaterally, no focal motor deficits, no sensory deficits noted and deep tendon reflexes 2+ bilaterally Psych mental status grossly normal and affect normal Assessment & Plan Assessment/Plan (1) Herniated nucleus pulposus, L4-5 left: PLAN: Plan 1. Herniated disc L4-L5 with left L5 radiculopathy status post lumbar laminectomy L4-L5 on the left with discectomy-management per surgery. PT eval. As needed pain regimen. 2. History of CVA-continue aspirin, statin. Follows with neurology. 3. Hypertension-stable, continue lisinopril. 4. Hyperlipidemia-continue statin. 5. BPH-on finasteride. DVT prophylaxis-Per surgery This patient was seen by Maria R Monique NP-C under the supervision of Dr. Crawford. Time spent examining patient, reviewing data and subsequent management of care: 12 minutes Documented by User: Dr. Cherelle Crawford MD 10/15/21 15:53 Objective Data Lab / Micro Data Result Diagrams: 10/07/21 07:28 Assessment & Plan Assessment/Plan (1) Herniated nucleus pulposus, L4-5 left: Charges/Coding Addendum Addendum: This patient was seen in conjunction with Lalito Esposito NP. I have independently interviewed and examined the patient and reviewed pertinent historical, laboratory, and other data. I have reviewed her note and concur with her documentation Consult for postop medical management: Patient was seen and examined. His pain in the back is fairly controlled. Complains of numbness in the legs. Denied any incontinence of urine or stool. Denied any fever or chills. Physical Exam: Gen: Comfortable, not pale, not jaundiced CVS:HS I +II, regular, no murmurs RESP: Diminished at lung bases GI: BS present and normal, soft, nontender, no palpable organs, dry intact dressing over his lower back EXT:No edema ASSESSMENT: 1. Postop day #0 status post L4-L5 lumbar laminectomy on the left with discectomy 2. History of CVA, on aspirin and statin 3. Hypertension 4. Hyperlipidemia 5. BPH Plan: Continue with pain control, statin, lisinopril, Continue gabapentin, Proscar Continue DVT prophylaxis per spine surgery Time spent coordinating all aspects of patient's care, discussing with nursin minutes Visit Charges Inpatient E&M: 86566 Subs Hosp L2
[2021-10-15] MEDS: oxyCODONE 5 MG Tablet PO (15:15)
[2021-10-15] MEDS: Cefazolin 1 GM/50 ML BAG IV ×2 (16:45→23:34)
[2021-10-15] MEDS: Morphine 4 MG/ML Syringe IV (17:09)
[2021-10-15] MEDS: traZODone 50 MG Tablet PO (22:03)
[2021-10-16 03:00] VITALS: BP 121/59; PULSE 76; RESP 12; TEMP 37.1; O2SAT 96
[2021-10-16] MEDS: Acetaminophen 500 MG Tablet 1000 MG PO ×3 (05:41→22:07)
[2021-10-16] MEDS: Gabapentin 300 MG Capsule PO ×3 (05:41→22:07)
[2021-10-16] MEDS: Lactated Ringers 1,000 ML 100 ML IV (05:43)
[2021-10-16] MEDS: Ensure Surgery 237 ML LIQUID PO (08:34)
[2021-10-16] MEDS: Finasteride 5 MG Tablet PO (08:34)
[2021-10-16] MEDS: Atorvastatin Calcium 20 MG Tablet PO (08:35)
[2021-10-16] MEDS: Lisinopril 10 MG Tablet PO (08:35)
[2021-10-16 08:42] VITALS: BP 109/63; PULSE 82; RESP 18; TEMP 37.1; O2SAT 95
[2021-10-16 09:12] LABS: Absolute Lymphocyte Count 0.98 X10^3/uL (0.83-4.51); Absolute Neutrophil Count 12.6 X10^3/uL (2.0-7.7); Basophil# 0.02 X10^3/uL; Basophil% 0.1 % (0-1); Hematocrit 36.6 % (40-54); Hemoglobin 12.6 g/dL (13.0-16.5); Lymphocyte # 0.98 X10^3/ul (0.83-4.51); Lymphocyte % 6.6 % (19-41); Mean Corp Hgb Conc 34.4 g/dL (32-36); Mean Corpuscular Hgb 33.2 pg (27.0-32.0); Mean Corpuscular Volume 96.3 fL (80-94); Mean Platelet Vol. 9.3 fl (6.2-12.0); Monocyte# 1.28 X10^3/uL; Monocyte% 8.6 % (0-10); NRBC Flagged by Analyzer 0 % (0-5); Neutrophil # 12.57 X10^3/uL (2.7-7.7); Neutrophil % 84.2 % (47-70); Platelet Count 189 K/mm3 (150-450); RBC Distribution Width CV 12.7 % (11.6-14.6); RBC Distribution Width SD 44.6 fl (35.1-43.9); White Blood Count 14.9 K/mm3 (4.4-11.0)
[2021-10-16 09:31] LABS: ALB/GLOB Ratio 0.9 RATIO (0.9-2.4); AST(SGOT) 17 U/L (15-37); Alanine Aminotransfer ALT/SGPT 19 U/L (16-61); Albumin, Serum 2.7 g/dL (3.2-5.0); Alkaline Phosphatase 75 U/L (45-117); Anion Gap 7 (5-15); BUN 18 mg/dL (7-18); Calcium,Total 8.9 mg/dL (8.5-10.1); Chloride 106 mmol/L (98-107); Creatinine, Serum 0.95 mg/dL (0.70-1.30); EST Glomerular Filtration Rate 83 mL/min (>60); Est Glom Filt Rate - Afr Amer 100 mL/min (>60); Estimated Creatinine Clearance 72.49 ml/min; Globulin 2.9 g/dL (2.2-4.2); Glucose 135 mg/dL (74-106); Potassium 4.1 mmol/L (3.5-5.1); Protein, Total 5.6 g/dL (6.4-8.2); Sodium Level 140 mmol/L (136-145)
--- NOTE | 2021-10-16 11:40 | CASEMGMT ---
RN CM Face to Face with patient for initial transition planning/care coordination assessment. RN CM introduced self and role at [facility]. Patient lying in bed, alert and oriented, at bedside. Patient willing to participate in assessment and is able to answer all questions appropriately. Care providers, pharmacy, and demographics verified. Patient wishes to discharge home, denies need for home health at this time. Patient states he has no further needs or concerns at this time. CM to follow for discharge planning needs that may arise. PCP: L[facility] Specialists: Narayan, spinal; Josep, Neurology Preferred Pharmacy: [facility] at discharge Insurance: Frankly, [employer] Prescription Benefit: yes Living Will/HPOA: yes, Sulma Ann LNOK: Living Arrangements: patient lives with in a single story home with 1 step and grab bar to enter the home. Patient states he was independent at home prior to surgery Transportation: self, DME/HHC: patient states he has cane and grab bars at home. Will monitor for walker at discharge. Patient prefers [employer] for DME. Disposition Plan: Patient to discharge home with family support and follow-up plans in place. Roula ORELLANA, RN, CM
--- NOTE | 2021-10-16 12:35 | PN.HOSP_ITS ---
Subjective Subjective Follow-up on lumbar surgery: Patient seen and examined. No acute events overnight. Denies any fever or chills. Objective Data Objective Data Vital Signs: Vital Signs Temp Pulse Resp BP Pulse Ox O2 Del Method O2 Flow Rate 98.7 F 82 18 109/63 95 Room Air 4 10/16/21 08:42 10/16/21 08:42 10/16/21 08:42 10/16/21 08:42 10/16/21 08:42 10/16/21 08:42 10/15/21 12:45 FiO2 38 10/15/21 10:48 Oxygen Flow Rate (L/min) 4 Oxygen Delivery Method Room Air Weight: 74 kg Body Mass Index (BMI) 22.1 Intake & Output: Intake and Output for Last 24 Hours 10/14/21 10/15/21 10/16/21 23:59 23:59 23:59 Intake Total 2502 / 2502 1300 / 1300 Output Total 2640 / 2640 1700 / 1700 Balance -138 / -138 -400 / -400 Lab / Micro Data Result Diagrams: 10/16/21 08:49 10/16/21 08:49 Labs: Laboratory Results - last 24 hr 10/16/21 08:49: WBC 14.9 H, RBC 3.80 L, Hgb 12.6 L, Hct 36.6 L, MCV 96.3 H, MCH 33.2 H, MCHC 34.4, RDW Std Deviation 44.6 H, RDW Coeff of Crispin 12.7, Plt Count 189, MPV 9.3, Immature Gran % (Auto) 0.500, Neut % (Auto) 84.2 H, Lymph % (Auto) 6.6 L, [place] % (Auto) 8.6, Eos % (Auto) 0.0, Baso % (Auto) 0.1, Absolute Neuts (auto) 12.6 H, Absolute Lymphs (auto) 0.98, Nucleated RBC % 0 10/16/21 08:49: Sodium 140, Potassium 4.1, Chloride 106, Carbon Dioxide 27.0, Anion Gap 7, BUN 18, Creatinine 0.95, Estim Creat Clear Calc 72.49, Est GFR (MDRD) Af Amer 100, Est GFR (MDRD) Non-Af 83, BUN/Creatinine Ratio 19.0, Glucose 135 H, Calcium 8.9, Total Bilirubin 0.40, AST 17, ALT 19, Alkaline Phosphatase 75, Total Protein 5.6 L, Albumin 2.7 L, Globulin 2.9, Albumin/Globulin Ratio 0.9 Micro: Microbiology 10/07/21 07:28 Swab (Method) Nasal Screen MRSA/MSSA - Final Radiography Diagnostic Testing: Radiology Impression Spine X-Ray 10/15/21 07:30 IMPRESSION: Surgical instrument attached to the spinous process posterior to L5 Age consistent degenerative changes, no acute findings Electronically Signed: Trent Ndiaye MD at 11:56 EDT , Physical Exam Narrative Physical Exam: Gen: Comfortable, not pale, not jaundiced CVS:HS I +II, regular, no murmurs RESP: Diminished at lung bases GI: BS present and normal, soft, nontender, no palpable organs, dry intact dressing over his lower back EXT:No edema Assessment & Plan Assessment/Plan (1) Herniated nucleus pulposus, L4-5 left: PLAN: Plan 1.?POD#1 status post L4-L5 lumbar laminectomy on the left with discectomy, pain is controlled Patient's pain is controlled Continue on Tylenol, Valium, Neurontin, oxycodone and Morphine PT/OT to evaluate and treat Follow-up on neurosurgical recommendations 2.?History of CVA, on aspirin and statin 3.?Hypertension, controlled, continue on Lisinopril 4.?Hyperlipidemia, continue on statin 5.?BPH, continue on Proscar 6. DVT PPx- on SCDs Charges/Coding Visit Charges Inpatient E&M: 27218 Subs Hosp L2
[2021-10-16 13:04] VITALS: BP 122/66; PULSE 71; RESP 18; TEMP 36.6; O2SAT 95
[2021-10-16] MEDS: diazePAM 5 MG Tablet PO (14:30)
[2021-10-16 15:02] VITALS: BP 130/88; PULSE 66; RESP 18; TEMP 36.6; O2SAT 94
--- NOTE | 2021-10-16 16:47 | PCM.PN.ORT ---
Objective Data Objective Data Vital Signs: Vital Signs Temp Pulse Resp BP Pulse Ox O2 Del Method O2 Flow Rate 97.8 F 66 18 130/88 H 94 Room Air 4 10/16/21 15:02 10/16/21 15:02 10/16/21 15:02 10/16/21 15:02 10/16/21 15:02 10/16/21 15:02 10/15/21 12:45 FiO2 38 10/15/21 10:48 Oxygen Flow Rate (L/min) 4 Oxygen Delivery Method Room Air Weight: 163 lb 2.273 oz Body Mass Index (BMI) 22.1 Intake & Output: Intake and Output for Last 24 Hours 10/14/21 10/15/21 10/16/21 23:59 23:59 23:59 Intake Total 2502 / 2502 2536.67 / 2536.67 Output Total 2640 / 2640 2150 / 2150 Balance -138 / -138 386.67 / 386.67 Lab / Micro Data Result Diagrams: 10/16/21 08:49 10/16/21 08:49 Labs: Laboratory Results - last 24 hr 10/16/21 08:49: WBC 14.9 H, RBC 3.80 L, Hgb 12.6 L, Hct 36.6 L, MCV 96.3 H, MCH 33.2 H, MCHC 34.4, RDW Std Deviation 44.6 H, RDW Coeff of Crispin 12.7, Plt Count 189, MPV 9.3, Immature Gran % (Auto) 0.500, Neut % (Auto) 84.2 H, Lymph % (Auto) 6.6 L, [place] % (Auto) 8.6, Eos % (Auto) 0.0, Baso % (Auto) 0.1, Absolute Neuts (auto) 12.6 H, Absolute Lymphs (auto) 0.98, Nucleated RBC % 0 10/16/21 08:49: Sodium 140, Potassium 4.1, Chloride 106, Carbon Dioxide 27.0, Anion Gap 7, BUN 18, Creatinine 0.95, Estim Creat Clear Calc 72.49, Est GFR (MDRD) Af Amer 100, Est GFR (MDRD) Non-Af 83, BUN/Creatinine Ratio 19.0, Glucose 135 H, Calcium 8.9, Total Bilirubin 0.40, AST 17, ALT 19, Alkaline Phosphatase 75, Total Protein 5.6 L, Albumin 2.7 L, Globulin 2.9, Albumin/Globulin Ratio 0.9 Micro: Microbiology 10/07/21 07:28 Swab (Method) Nasal Screen MRSA/MSSA - Final Physical Exam Narrative Postop day #1. Mr. Ann is resting well. He has had no headache his back does not hurt very bad at all on the left leg pain that he had even lying down before surgery is gone. Does with a dural leak he will be kept down till tomorrow morning at which time we will have therapy get him up. If he does well getting up and walking around he can go home tomorrow afternoon. I will make rounds on him around 1:00. Neuro is intact at this time. Progress is satisfactory.
[2021-10-16 21:00] VITALS: BP 124/74; PULSE 75; RESP 16; TEMP 36.9; O2SAT 96
[2021-10-16] MEDS: traZODone 50 MG Tablet PO (22:07)
[2021-10-16] MEDS: oxyCODONE 5 MG Tablet PO (22:50)
[2021-10-17 05:20] VITALS: BP 118/67; PULSE 68; RESP 16; TEMP 36.3; O2SAT 94
[2021-10-17] MEDS: Acetaminophen 500 MG Tablet 1000 MG PO ×2 (05:27→14:53)
[2021-10-17] MEDS: Gabapentin 300 MG Capsule PO ×2 (05:27→14:53)
[2021-10-17] MEDS: oxyCODONE 5 MG Tablet PO (06:04)
[2021-10-17 09:56] VITALS: BP 118/76; PULSE 90; RESP 16; TEMP 36.6; O2SAT 94
[2021-10-17] MEDS: Atorvastatin Calcium 20 MG Tablet PO (10:08)
[2021-10-17] MEDS: Finasteride 5 MG Tablet PO (10:08)
[2021-10-17] MEDS: Lisinopril 10 MG Tablet PO (10:08)
[2021-10-17] MEDS: Ensure Surgery 237 ML LIQUID PO (10:11)
--- NOTE | 2021-10-17 11:35 | PCM.PN.HOSP ---
Subjective Subjective Follow-up on lumbar surgery: Patient seen and examined. No acute events overnight. Denies any fever or chills. However later on informed outpatient at left posterior knee fullness discomfort. Doppler ultrasound negative for acute DVT. Objective Data Objective Data Vital Signs: Vital Signs Temp Pulse Resp BP Pulse Ox O2 Del Method O2 Flow Rate 97.9 F 90 16 118/76 94 Room Air 4 10/17/21 09:56 10/17/21 09:56 10/17/21 09:56 10/17/21 09:56 10/17/21 09:56 10/17/21 09:58 10/15/21 12:45 FiO2 38 10/15/21 10:48 Oxygen Flow Rate (L/min) 4 Oxygen Delivery Method Room Air Weight: 74 kg Body Mass Index (BMI) 22.1 Intake & Output: Intake and Output for Last 24 Hours 10/15/21 10/16/21 10/17/21 23:59 23:59 23:59 Intake Total 2502 / 2502 2536.67 / 2536.67 Output Total 2640 / 2640 2150 / 4150 2425 / 2425 Balance -138 / -138 386.67 / -1613.33 -2425 / -2425 Lab / Micro Data Result Diagrams: 10/16/21 08:49 10/16/21 08:49 Micro: Microbiology 10/07/21 07:28 Swab (Method) Nasal Screen MRSA/MSSA - Final Physical Exam Narrative Physical Exam: Gen: Comfortable, not pale, not jaundiced CVS:HS I +II, regular, no murmurs RESP: Diminished at lung bases GI: BS present and normal, soft, nontender, no palpable organs, dry intact dressing over his lower back EXT:No edema Assessment & Plan Assessment/Plan (1) Herniated nucleus pulposus, L4-5 left: PLAN: Plan 1.?POD#2 status post L4-L5 lumbar laminectomy on the left with discectomy, pain is controlled Patient's pain is controlled Continue on Tylenol, Valium, Neurontin, oxycodone and Morphine PT/OT to evaluate and treat Follow-up on neurosurgical recommendations 2.?History of CVA, on aspirin and statin 3.?Hypertension, controlled, continue on Lisinopril 4.?Hyperlipidemia, continue on statin 5.?BPH, continue on Proscar 6. DVT PPx- on SCDs OK to discharge home from medicine stand point Charges/Coding Visit Charges Inpatient E&M: 80825 Subs Hosp L2
[2021-10-17 11:48] VITALS: O2SAT 95
[2021-10-17] MEDS: Ondansetron 4 MG/2 ML Vial IV (12:25)
[2021-10-17] MEDS: 0.9% Saline Lock 10 ML Syringe IV (12:26)
--- NOTE | 2021-10-17 13:19 | VDLE_ITS ---
Reason For Study: Pain Procedure LEFT This is a venous duplex using B-mode, color GSV is normal. flow and spectral Doppler. CFV is compressible, spontaneous, phasic, Exam performed portable in patient room. competent, and demonstrates normal A preliminary report was called and/or faxed augmentation. to Teri PALENCIA. FV is compressible, spontaneous, phasic, competent and demonstrates normal augmentation. POP V is compressible, spontaneous, phasic, competent and demonstrates normal augmentation. T/P Trunk is compressible. PTV is compressible. LT PerV is compressible. VL/Venous Duplex US, Unilateral Interpretation Summary There is no evidence of left lower extremity deep vein thrombosis. Left great s aphenous vein appears patent and compressible segmentally. Ordering Physician: Vishnu Busch Referring Physician: Jalen Granado MD Performed By: Roula Austin RVT
--- NOTE | 2021-10-17 13:25 | PCM.PN.ORT ---
Subjective Subjective Postop day #2. Patient's only complaint is that of pain just above and behind his knee. On examination it is very tender there in between the biceps femoris tendons. This makes it suspicious for a blood clot. I ordered a Doppler to be done immediately. The tendons of cells were not tendon so I do not think it is a tendinitis. The pain is completely different than the radicular pain that he had for it is gone. He walked well today out in the hallway with his walker with no headache and no problem. I did change his dressing the incision is dry and healing well. We will await the results of the Doppler. I will let Dr. Tracy know. Objective Data Objective Data Vital Signs: Vital Signs Temp Pulse Resp BP Pulse Ox O2 Del Method O2 Flow Rate 97.9 F 90 16 118/76 95 Room Air 4 10/17/21 09:56 10/17/21 09:56 10/17/21 09:56 10/17/21 09:56 10/17/21 11:48 10/17/21 11:48 10/15/21 12:45 FiO2 38 10/15/21 10:48 Oxygen Flow Rate (L/min) 4 Oxygen Delivery Method Room Air Weight: 163 lb 2.273 oz Body Mass Index (BMI) 22.1 Intake & Output: Intake and Output for Last 24 Hours 10/15/21 10/16/21 10/17/21 23:59 23:59 23:59 Intake Total 2502 / 2502 2536.67 / 2536.67 400 / 400 Output Total 2640 / 2640 2150 / 4150 2425 / 2425 Balance -138 / -138 386.67 / -1613.33 -202 / -2024 Lab / Micro Data Result Diagrams: 10/16/21 08:49 10/16/21 08:49 Micro: Microbiology 10/07/21 07:28 Swab (Method) Nasal Screen MRSA/MSSA - Final
[2021-10-17 14:59] VITALS: BP 107/61; PULSE 79; RESP 16; TEMP 37.2; O2SAT 97
--- NOTE | 2021-10-17 15:18 | CASEMGMT ---
SLIME DAVE NOTE: Pt being discharged home today. Therapy has worked w/pt and recommending FWW. Script obtained and faxed to [facility] and walker has been delivered to pt's room. SLIME DAVE to room. Pt and deny any further discharge planning needs or concerns. Jovany ALLENN SLIME CM
--- NOTE | 2021-10-17 15:33 | DCINST_ITS ---
Discharge Instructions Diet Discharge Diet: No restrictions Activity Discharge Activity: May Not Drive and May Shower (Starting Thursday) Weight Bearing Status: Full weight bearing Dressing / Incision Call your doctor if your incision/area has: Continuous Slow Oozing, Sudden Increased Bleeding, Increased Pain/ Swelling and Increased Redness Call your doctor if you observe: Fever of 101 or Higher, Inability to urinate, Shortness of breath, Chest pain and Calf discomfort Remove Dressing in: 3 days Cleanse incision/area with: Soap & Water Follow Up Care Please Follow Up With: Vishnu Busch DO When: 2 weeks post-op Test Results: Test results from this visit will be discussed in further detail at your follow- up appointment, if applicable. Discharge Plan Admission Admit Date/Time: 10/15/21 13:49 Attending Provider: Vishnu Busch Primary Care Provider: Fransisco Granado Consulting Providers: Cherelle Crawford Discharge Orders/Prescriptions Prescriptions: No Action aspirin 325 mg tablet 325 mg PO DAILY Qty: 90 1RF finasteride 5 mg tablet 5 mg PO DAILY Label Comments: TAKE 1 TABLET BY MOUTH ONCE DAILY gabapentin 100 mg capsule 300 mg PO TID atorvastatin [Lipitor] 20 mg tablet 20 mg PO DAILY trazodone 50 mg tablet 50 mg PO QHS lisinopril 10 mg tablet 10 mg PO DAILY oxycodone-acetaminophen 5-325 mg tablet 1 tab PO Q6H PRN (Reason: pain) 10 Days Qty: 40 0RF Referrals / Follow Up: Fransisco Granado MD [Primary Care Provider] - Disposition Disposition (needs filled in before D/C Order can be placed): Home, Self Care
== END 2021-10-17 16:34 | disposition home or self-care (01) | DRG 519 ==
LOC: SDC 10:22 → MS3 10:22
PROVIDERS: Anesthesiology; Internal Medicine; Admitting Provider Orthopaedic Surgery; PCP Family Medicine; Referring Provider Orthopaedic Surgery; Visit Provider Orthopaedic Surgery
PROC: 0SB20ZZ Excision of Lumbar Vertebral Disc, Open Approach (ICD-10-PCS; CPT 63030; principal; 2021-10-15 07:00)
DX: M51.16 Intervertebral disc disorders with radiculopathy, lumbar region (principal); G97.41 Accidental puncture or laceration of dura during a procedure; G97.0 Cerebrospinal fluid leak from spinal puncture; E78.5 Hyperlipidemia, unspecified; M79.7 Fibromyalgia; I10 Essential (primary) hypertension; G43.909 Migraine, unspecified, not intractable, without status migrainosus; M47.26 Other spondylosis with radiculopathy, lumbar region; M25.562 Pain in left knee; Z86.73 Personal history of transient ischemic attack (TIA), and cerebral infarction without residual deficits; Z87.442 Personal history of urinary calculi; Z85.828 Personal history of other malignant neoplasm of skin; Z86.718 Personal history of other venous thrombosis and embolism; Z79.82 Long term (current) use of aspirin; Z79.899 Other long term (current) drug therapy; Z87.891 Personal history of nicotine dependence; N40.0 Benign prostatic hyperplasia without lower urinary tract symptoms
CPT/HCPCS: 36415; 72020; 80053; 82962; 83735; 85025; 86703; 86706; 86708; 86803; 87081; 88304; 93971; 97162; 99251; J7120; A4216; G0463; J2405; J3475

== ENCOUNTER 2021-11-08 11:02 | Outpatient (CLI) | payer MEDICARE, OTHER, SELFPAY ==
[2021-11-08 11:22] LABS: Lyme Ab Screen Interpretation REF LAB
[2021-11-08 15:37] LABS: CRP < 2.90 mg/L (0.0-3.0)
[2021-11-08 15:40] LABS: Erythrocyte Sedimentation Rate 10 mm/hr (0-20)
[2021-11-11 14:13] LABS: ANTINUCLEAR ANTIBODIES DIRECT Negative (Negative)
[2021-11-13 15:07] LABS: Lyme Scn Total Ab w/Rflx Negative
== END 2021-11-08 23:59 | disposition home or self-care (01) ==
LOC: MTLAB 11:03
PROVIDERS: PCP Family Medicine; Referring Provider Family Medicine; Visit Provider Family Medicine
DX: R43.0 Anosmia (principal); R63.4 Abnormal weight loss
CPT/HCPCS: 36415; 84630; 85652; 86038; 86140; 86618; 86769

== ENCOUNTER → 2021-11-13 | Outpatient (CLI) | payer MEDICARE, OTHER, SELFPAY ==
--- NOTE | 2021-11-13 06:29 | MRI_ITS ---
We are attempting to reach an attending provider to discuss findings. An addendum with communication details will be sent when the communication is complete. EXAM: MR LUMBAR SPINE WITHOUT AND WITH INTRAVENOUS CONTRAST CLINICAL INDICATION: new symptoms, INTERVERTEBRAL DISC DISPLACEMENT, POST PROCEDURAL TECHNIQUE: Multiplanar and multisequence MR images of the lumbar spine without and with intravenous contrast. This report was created using [employer] report generation technology. CONTRAST: IV 15ml Dotarem COMPARISON: MR Lumbar Spine dated aug 23 2021 FINDINGS: VERTEBRAE: Interval left L4 laminotomy. Vertebral body heights are preserved. Normal alignment. No spondylolisthesis. There is preservation of the normal lumbar lordosis. SPINAL CORD: Normal. Normal position and signal intensity of the conus medullaris. SOFT TISSUES: Normal. DISCS/SPINAL CANAL/NEURAL FORAMINA: L1-L2: Unchanged from prior exam. L2-L3: Unchanged from prior exam. L3-L4: Unchanged from prior exam. L4-L5: Severe spinal stenosis at the L4-5 level mildly improved from prior exam. AP dimension of the spinal canal at L4-5 measures 5 mm. There is prominent soft tissue reaction along the laminotomy site demonstrating peripheral enhancement of irregular septated fluid collection which may represent postoperative seroma, chronic hematoma or abscess. Collection measures 26 mm in AP dimension and 11 mm in lateral dimension. Normal neuroforamina. L5-S1: Unchanged from prior exam. MRI/Spine Lumbar W/WO Contrast IMPRESSION: Prominent edema with fluid collection along the L4 left laminotomy site which causes residual narrowing of the left lateral recess and moderate spinal stenosis. Abscess to be differentiated from chronic hematoma and postoperative seroma. Electronically Signed: Kunal Schneider MD at 9:12 EDT ,
[2021-11-13 12:07] LABS: Erythrocyte Sedimentation Rate 8 mm/hr (0-20)
[2021-11-13 12:11] LABS: Absolute Neutrophil Count 6.8 X10^3/uL (2.0-7.7); Basophil# 0.04 X10^3/uL; Basophil% 0.4 % (0-1); Eosinophil# 0.21 X10^3/uL; Eosinophils% 2.3 % (0-5); Hematocrit 38.6 % (40-54); Hemoglobin 12.8 g/dL (13.0-16.5); Lymphocyte % 14.1 % (19-41); Mean Corp Hgb Conc 33.2 g/dL (32-36); Mean Corpuscular Hgb 32.7 pg (27.0-32.0); Mean Corpuscular Volume 98.7 fL (80-94); Mean Platelet Vol. 9.7 fl (6.2-12.0); Monocyte# 0.75 X10^3/uL; Monocyte% 8.2 % (0-10); NRBC Flagged by Analyzer 0 % (0-5); Neutrophil # 6.83 X10^3/uL (2.7-7.7); Neutrophil % 74.3 % (47-70); Platelet Count 171 K/mm3 (150-450); RBC Distribution Width CV 12.6 % (11.6-14.6); RBC Distribution Width SD 45.3 fl (35.1-43.9); Red Blood Count 3.91 M/mm3 (4.6-6.2); White Blood Count 9.2 K/mm3 (4.4-11.0)
== END | disposition home or self-care (01) ==
PROVIDERS: PCP Family Medicine; Referring Provider Orthopaedic Surgery; Visit Provider Orthopaedic Surgery
DX: M51.26 Other intervertebral disc displacement, lumbar region (principal); Z98.890 Other specified postprocedural states
CPT/HCPCS: 36415; 72158; 85025; 85652; A9575

== ENCOUNTER → 2021-12-19 | Outpatient (CLI) | payer MEDICARE, OTHER, SELFPAY ==
[2021-12-19 16:58] LABS: Erythrocyte Sedimentation Rate 10 mm/hr (0-20)
[2021-12-19 18:24] LABS: CPK Total, Creatine Kinase 132 U/L (39-308); CRP < 2.90 mg/L (0.0-3.0); LDH 200 U/L (87-241)
[2021-12-23 13:07] LABS: Anti-Centromere B Ab <0.2 AI (0.0-0.9); Anti-Chromatin <0.2 AI (0.0-0.9); Anti-Jo <0.2 AI (0.0-0.9); Anti-Scleroderma-70 AB <0.2 AI (0.0-0.9); RNP Ab <0.2 AI (0.0-0.9); SJOGREN'S Anti-SS-A test < 0.2 AI (0.0-0.9); SJOGREN'S Anti-SS-B test < 0.2 AI (0.0-0.9); Smith Ab <0.2 AI (0.0-0.9)
[2021-12-23 15:07] LABS: Endomysial Antibody IgA Negative (Negative)
[2021-12-24 15:15] LABS: Immunoglobulin A 317 mg/dL (61-437); t-Transglutaminase IgA <2 U/mL (0-3)
[2021-12-24 15:19] LABS: Anti-dsDNA Ab <1 IU/mL (0-9)
[2021-12-27 07:07] LABS: Albumin 3.7 g/dL (2.9-4.4); Alpha-1-Globulins 0.3 g/dL (0.0-0.4); Alpha-2-Globulins 0.9 g/dL (0.4-1.0); Cytoplasmic Ab (C-ANCA) <1:20 titer (Neg:<1:20); Gamma Globulin 0.6 g/dL (0.4-1.8); Immunoglobulin A 320 mg/dL (61-437); Immunoglobulin E 10 IU/mL (6-495); Immunoglobulin G 505 mg/dL (603-1613); Immunoglobulin M 36 mg/dL (15-143); PROEL- TOTAL PROTEIN 6.5 g/dL (6.0-8.5)
[2021-12-27 11:06] LABS: Carbohydrate Ag 19-9 2261 10 U/mL (0-35); Gastrin, Serum 19 pg/mL (0-115); Perinuclear Ab (P-ANCA) <1:20 titer (Neg:<1:20)
== END | disposition home or self-care (01) ==
LOC: LAB 16:23
PROVIDERS: PCP Family Medicine; Referring Provider Internal Medicine Gastroenterology; Visit Provider Internal Medicine Gastroenterology
DX: R63.4 Abnormal weight loss (principal); K59.00 Constipation, unspecified
CPT/HCPCS: 36415; 82550; 82784; 82785; 82941; 83516; 83615; 84165; 85652; 86140; 86225; 86235; 86255; 86256; 86301; 86334

== ENCOUNTER → 2021-12-31 | Outpatient (CLI) | payer MEDICARE, OTHER, SELFPAY ==
--- NOTE | 2021-12-31 07:57 | CT_ITS ---
INDICATION: weight loss EXAMINATION: CT ABDOMEN AND PELVIS WITH CONTRAST - CT Abdomen And Pelvis W/ Contrast Injection TECHNIQUE: Helically acquired images were obtained of the abdomen and pelvis following IV contrast. A radiation dose optimization technique was used for this scan. IV Contrast dosage and agent: 100 mL of [id number]. Oral contrast: Administered.. COMPARISON: None. FINDINGS: LOWER CHEST: Lung bases are clear. No cardiomegaly or pericardial effusion. LIVER: Homogeneous. No focal mass. GALLBLADDER AND BILIARY TREE: No calcified gallstones. No gallbladder distension or wall edema. No intra- or extrahepatic biliary ductal dilation. PANCREAS: No focal cystic or solid mass. SPLEEN: Normal size without focal cystic or solid mass. ADRENAL GLANDS: No nodules. KIDNEYS AND URETERS: Normal renal size and position. No hydronephrosis. PERITONEUM: No ascites or free air. No other fluid collection. BOWEL: No evidence of acute appendicitis. No stomach or bowel distension. No focal inflammatory change. Scattered diverticular disease no evidence of acute diverticulitis, focal wall thickening visualized in the rectosigmoid, no evidence of stranding of the adjacent fat planes. LYMPH NODES: No enlarged mesenteric or retroperitoneal lymph nodes. VESSELS: Atherosclerotic calcifications of the abdominal vessels visualized. 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 URINARY BLADDER: Unremarkable. REPRODUCTIVE ORGANS: No pelvic masses. ABDOMINAL WALL: Small left inguinal hernia is seen. BONES: No lytic or blastic abnormality. CT/Abdomen/Pelvis WITH Contrast IMPRESSION: No evidence of acute abdominal pathology is seen. Thickening of the wall of the sigmoid colon is seen but no evidence of mass is seen. Electronically Signed: Michael Vale MD at 12:53 EDT ,
[2021-12-31 08:35] LABS: EGFR FINGERSTICK > 60.0000 mL/min (>60)
== END | disposition home or self-care (01) ==
LOC: CT 07:56
PROVIDERS: PCP Family Medicine; Referring Provider Internal Medicine Gastroenterology; Visit Provider Internal Medicine Gastroenterology
DX: R63.4 Abnormal weight loss (principal)
CPT/HCPCS: 74177; Q9967; A4216

== ENCOUNTER → 2022-01-14 | Outpatient (CLI) | payer MEDICARE, OTHER, SELFPAY ==
--- NOTE | 2022-01-14 08:02 | CDU_ITS ---
Reason For Study: stenosis, L ICA stent Rt. Velocities/BP Lt. Velocities/BP Prox CCA 99.5/24.8 cm/sec. Prox CCA 90.0/23.7 cm/sec. Mid CCA 79.6/23.9 cm/sec. Mid CCA 107.2/32.3 cm/sec. Dist CCA 62.6/16.3 cm/sec. Dist CCA 91.2/22.5 cm/sec. Prox ICA 144.8/48.0 cm/sec. Prox ICA 64.1/21.2 cm/sec. Mid ICA 148.5/40.7 cm/sec. Mid ICA 74.0/25.6 cm/sec. Dist ICA 99.8/31.1 cm/sec. Dist ICA 61.9/25.6 cm/sec. Rt. ICA/CCA = 1.9. Lt. ICA/CCA = .7. Prox ECA 96.0/17.9 cm/sec. Prox ECA 159.5/17.0 cm/sec. Rt. Vert. 39.7/11.4 cm/sec. Lt. Vert. 60.8/20.1 cm/sec. Right Extracranial There is heterogeneous, irregular atherosclerotic plaque noted in the right common carotid artery. There is heterogeneous, irregular atherosclerotic plaque noted in the right internal carotid artery. There is heterogeneous, irregular atherosclerotic plaque noted in the right external carotid artery. Antegrade flow is noted in the right vertebral artery. Left Extracranial There is heterogeneous, irregular atherosclerotic plaque noted in the left common carotid artery. There is heterogeneous, irregular atherosclerotic plaque noted in the left internal carotid artery. Stent noted in the L ICA. There is heterogeneous, irregular atherosclerotic plaque noted in the left external carotid artery. Antegrade flow is noted in the left vertebral artery. Procedure Carotid Duplex [id number]. This is a Carotid Duplex examination using B-mode, color flow and specral Doppler. The exam was diagnostic. Exam performed in department. VL/Carotid Duplex Ultrasound Interpretation Summary Irregular calcific plaque with shadowing at the proximal right internal carotid artery with 50 to 69% stenosis. Less than 50% stenosis right external carotid artery Left carotid stent just barely noted to be within the carotid bulb proximal to the origin of the internal and external carotid artery with normal flow velocity within the left internal carotid artery consistent with less than 50% stenosis Less than 50% stenosis left external carotid artery Patent and antegrade vertebral arteries bilaterally Findings do not appear to have changed from the previous examination of June 112021 Ordering Physician: Evan Car Performed By: Charles Lambert RVT
== END | disposition home or self-care (01) ==
LOC: CVS 08:01
PROVIDERS: PCP Family Medicine; Referring Provider Psychiatry & Neurology Neurology; Visit Provider Psychiatry & Neurology Neurology
DX: I65.23 Occlusion and stenosis of bilateral carotid arteries (principal)
CPT/HCPCS: 93880

== ENCOUNTER → 2022-01-17 | Outpatient (CLI) | payer MEDICARE, OTHER, SELFPAY ==
[2022-01-17 12:16] LABS: Erythrocyte Sedimentation Rate 9 mm/hr (0-20)
[2022-01-17 12:17] LABS: Absolute Lymphocyte Count 0.92 X10^3/uL (0.83-4.51); Absolute Neutrophil Count 4.9 X10^3/uL (2.0-7.7); Basophil# 0.03 X10^3/uL; Basophil% 0.4 % (0-1); Eosinophil# 0.18 X10^3/uL; Eosinophils% 2.6 % (0-5); Hematocrit 41.6 % (40-54); Hemoglobin 13.8 g/dL (13.0-16.5); Lymphocyte # 0.92 X10^3/ul (0.83-4.51); Lymphocyte % 13.4 % (19-41); Mean Corp Hgb Conc 33.2 g/dL (32-36); Mean Corpuscular Hgb 32.5 pg (27.0-32.0); Mean Corpuscular Volume 97.9 fL (80-94); Mean Platelet Vol. 9.5 fl (6.2-12.0); Monocyte# 0.76 X10^3/uL; Monocyte% 11.1 % (0-10); NRBC Flagged by Analyzer 0 % (0-5); Neutrophil # 4.93 X10^3/uL (2.7-7.7); Neutrophil % 71.9 % (47-70); Platelet Count 218 K/mm3 (150-450); RBC Distribution Width CV 12.4 % (11.6-14.6); RBC Distribution Width SD 44.8 fl (35.1-43.9); Red Blood Count 4.25 M/mm3 (4.6-6.2); White Blood Count 6.9 K/mm3 (4.4-11.0)
[2022-01-17 12:50] LABS: CRP < 2.90 mg/L (0.0-3.0)
== END | disposition home or self-care (01) ==
LOC: MTLAB 10:30
PROVIDERS: PCP Family Medicine; Referring Provider Ophthalmology; Visit Provider Ophthalmology
DX: R51.9 Headache, unspecified (principal)
CPT/HCPCS: 36415; 85025; 85652; 86140

== ENCOUNTER → 2022-04-09 | Outpatient (CLI) | payer MEDICARE, OTHER, SELFPAY ==
[2022-04-11 17:07] LABS: Carbohydrate Ag 19-9 2261 15 U/mL (0-35); Carcinoembryonic Antigen 2139 1.4 ng/mL (0.0-4.7)
== END | disposition home or self-care (01) ==
LOC: LAB 13:55
PROVIDERS: PCP Family Medicine; Referring Provider Internal Medicine Gastroenterology; Visit Provider Internal Medicine Gastroenterology
DX: R63.4 Abnormal weight loss (principal); K59.00 Constipation, unspecified; J32.9 Chronic sinusitis, unspecified
CPT/HCPCS: 36415; 82378; 86301

== ENCOUNTER → 2022-04-10 | Outpatient (CLI) | payer MEDICARE, OTHER, SELFPAY ==
[2022-04-13 12:45] LABS: Calprotectin, Stool 20 ug/g (0-120)
[2022-04-16 19:23] LABS: Pancreatic Elastase, Fecal > 500 (>200)
== END | disposition home or self-care (01) ==
LOC: LABSPEC 08:37
PROVIDERS: PCP Family Medicine; Visit Provider Internal Medicine Gastroenterology
DX: R63.4 Abnormal weight loss (principal); K59.00 Constipation, unspecified; K58.9 Irritable bowel syndrome, unspecified
CPT/HCPCS: 82653; 83630; 83993

== ENCOUNTER → 2022-05-06 | Outpatient (CLI) | payer MEDICARE, OTHER, SELFPAY ==
[2022-05-06 15:29] LABS: Absolute Lymphocyte Count 0.59 X10^3/uL (0.83-4.51); Absolute Neutrophil Count 11.9 X10^3/uL (2.0-7.7); Basophil# 0.05 X10^3/uL; Basophil% 0.4 % (0-1); Eosinophil# 0.01 X10^3/uL; Eosinophils% 0.1 % (0-5); Hematocrit 43.4 % (40-54); Hemoglobin 14.4 g/dL (13.0-16.5); Lymphocyte # 0.59 X10^3/ul (0.83-4.51); Lymphocyte % 4.4 % (19-41); Mean Corp Hgb Conc 33.2 g/dL (32-36); Mean Corpuscular Hgb 31.9 pg (27.0-32.0); Mean Platelet Vol. 9.3 fl (6.2-12.0); Monocyte# 0.64 X10^3/uL; Monocyte% 4.8 % (0-10); NRBC Flagged by Analyzer 0 % (0-5); Neutrophil # 11.93 X10^3/uL (2.7-7.7); POSITIVE DIFFERENTIAL YES; Platelet Count 226 K/mm3 (150-450); RBC Distribution Width CV 13.7 % (11.6-14.6); RBC Distribution Width SD 48.4 fl (35.1-43.9); Red Blood Count 4.52 M/mm3 (4.6-6.2); White Blood Count 13.4 K/mm3 (4.4-11.0)
[2022-05-06 15:45] LABS: CRP < 2.90 mg/L (0.0-3.0)
[2022-05-06 16:35] LABS: Differential Indicated SCAN CRITERIA MET
[2022-05-06 16:50] LABS: Erythrocyte Sedimentation Rate 8 mm/hr (0-20)
[2022-05-06 16:55] LABS: Differential Comment SCANNED
[2022-05-07 12:41] LABS: Anion Gap 9 (5-15); BUN 23 mg/dL (7-18); BUN/Creat Ratio 20.5 RATIO (10-20); Calcium,Total 9.1 mg/dL (8.5-10.1); Chloride 108 mmol/L (98-107); Creatinine, Serum 1.12 mg/dL (0.70-1.30); EST Glomerular Filtration Rate 68 mL/min (>60); Est Glom Filt Rate - Afr Amer 83 mL/min (>60); Glucose 109 mg/dL (74-106); Potassium 4.5 mmol/L (3.5-5.1); Sodium Level 140 mmol/L (136-145)
== END | disposition home or self-care (01) ==
LOC: MTLAB 11:53
PROVIDERS: PCP Family Medicine; Referring Provider Ophthalmology; Visit Provider Ophthalmology
DX: R51.9 Headache, unspecified (principal)
CPT/HCPCS: 36415; 80048; 85025; 85652; 86140

== ENCOUNTER → 2022-05-09 | Outpatient (CLI) | payer MEDICARE, OTHER, SELFPAY ==
--- NOTE | 2022-05-09 06:59 | MRI_ITS ---
STUDY: MRI ABDOMEN WITH AND WITHOUT CONTRAST REASON FOR EXAM: Male, 71 years old. Unintentional weight loss TECHNIQUE: Standardized fat and water weighted pulse sequences were obtained in all 3 orthogonal planes post contrast administration. 15 mL Clariscan was administered for the contrast portion of the examination. COMPARISON: CT 12/31/2021 FINDINGS: The visualized lung bases are unremarkable. The visualized portions of the heart are within normal limits. Normal liver. Normal gallbladder and extrahepatic biliary system. Normal spleen. Normal pancreas. Normal bilateral adrenal glands. Normal right kidney. Normal left kidney. Hollow viscus structures are unremarkable. Normal abdominal aorta. Normal inferior vena cava. Normal retroperitoneum. Normal abdominal wall. No bone marrow edema. MRI/MRI Abd WITH and W/O Contrast IMPRESSION: Unremarkable unenhanced and enhanced MRI of the abdomen. No intra-abdominal mass/adenopathy/ascites. Electronically Signed: Hermann Rico (Brooks), at 8:48 EST ,
--- NOTE | 2022-05-09 07:03 | CT_ITS ---
STUDY: LOW DOSE CT LUNG CANCER SCREENING REASON FOR EXAM: Male, 71 years old. Tobacco Abuse. The patient smoked 1 pack per day for 55 years. The patient quit one and half years ago. RADIATION DOSAGE (If Supplied By Facility): CTDIvol = ( 3.02 ) mGy, DLP = ( 121.16 ) mGycm TECHNIQUE: No contrast was administered. Low dose technique was utilized (average mAS-38 and kVp 120). 1.25 mm axial source images with a slice interval of 1.25-mm were reconstructed in lung windows. 2.5 mm axial source images with a slice interval of 2.5-mm were reconstructed in lung windows. 5.0 mm axial source images with a slice interval of 5.0-mm were reconstructed in soft tissue windows. COMPARISON: Comparison is made with prior study dated 09/12/2020. NODULES: Emphysema: Stable scarring at the lung apices slightly more prominent in the right apex. Mild degree of emphysematous changes more pronounced in the upper lobes. Stable 3 mm calcified granuloma in the anterior medial portion of the left upper lobe as seen on axial image #164. Stable 4 mm noncalcified nodule in the anterolateral aspect of the right lower lobe. Endobronchial lesion: Unremarkable. Aorta: Atherosclerotic calcification of the aortic arch. CORONARY ARTERIES: Coronary artery calcification is seen. Heart: Unremarkable Pulmonary artery: Unremarkable Mediastinal nodes: Calcified left hilar lymph nodes. Other chest and abdominal findings: CT/Low Dose CT Lung Screening IMPRESSION: Lung-RADS category 2 - Continue annual screening with LDCT in 12 months. IMPORTANT NOTES FOR USE: ACR Lung-RADS Version 1.1 Assessment Categories Release Date: 2018 Category: Coded 0-4 bases on nodule(s) with highest degree of suspicion. Negative screen is defined as categories 1 and 2; a positive screen is defined as categories 3 and 4. Category 3 and 4A nodules that are unchanged on interval CT should be coded as category 2, and individuals returned to screening in 12 months. Category 4X: Category 3 or 4 nodules with additional imaging findings that increase the suspicion of lung cancer, such as spiculation, GGN that doubles in size in 1 year, enlarged lymph notes, etc. Category Modifiers: S (significant finding unrelated to lung cancer) Electronically Signed: Bladimir Vega MD at 12:25 EST ,
== END | disposition home or self-care (01) ==
PROVIDERS: PCP Family Medicine; Referring Provider Family Medicine; Visit Provider Family Medicine
DX: I25.10 Atherosclerotic heart disease of native coronary artery without angina pectoris (principal); I70.0 Atherosclerosis of aorta; F17.210 Nicotine dependence, cigarettes, uncomplicated; R91.8 Other nonspecific abnormal finding of lung field; R63.4 Abnormal weight loss; Z12.2 Encounter for screening for malignant neoplasm of respiratory organs; K59.00 Constipation, unspecified; K80.50 Calculus of bile duct without cholangitis or cholecystitis without obstruction
CPT/HCPCS: 71271; 74183; A9575; A4216

== ENCOUNTER → 2022-07-01 | Outpatient (CLI) | payer MEDICARE, OTHER, SELFPAY ==
[2022-07-01 10:15] LABS: Hematocrit 44.7 % (40-54); Hemoglobin 14.7 g/dL (13.0-16.5); Mean Corp Hgb Conc 32.9 g/dL (32-36); Mean Corpuscular Hgb 31.7 pg (27.0-32.0); Mean Corpuscular Volume 96.3 fL (80-94); Mean Platelet Vol. 9.3 fl (6.2-12.0); Platelet Count 256 K/mm3 (150-450); RBC Distribution Width CV 12.4 % (11.6-14.6); RBC Distribution Width SD 44.3 fl (35.1-43.9); Red Blood Count 4.64 M/mm3 (4.6-6.2)
[2022-07-01 10:25] LABS: ALB/GLOB Ratio 1.1 RATIO (0.9-2.4); AST(SGOT) 17 U/L (15-37); Alanine Aminotransfer ALT/SGPT 27 U/L (16-61); Albumin, Serum 3.6 g/dL (3.2-5.0); Alkaline Phosphatase 110 U/L (45-117); Anion Gap 9 (5-15); BUN 21 mg/dL (7-18); BUN/Creat Ratio 21.7 RATIO (10-20); Calcium,Total 9.1 mg/dL (8.5-10.1); Chloride 106 mmol/L (98-107); Cholesterol 150 mg/dL (200); Creatinine, Serum 0.97 mg/dL (0.70-1.30); EST Glomerular Filtration Rate 81 mL/min (>60); Est Glom Filt Rate - Afr Amer 98 mL/min (>60); Globulin 3.4 g/dL (2.2-4.2); Glucose 100 mg/dL (74-106); High Density Lipoprotein 60 mg/dL; Sodium Level 139 mmol/L (136-145); Triglycerides 90 mg/dL; Very Low Density Lipoprotein 18 mg/dL (5-40)
[2022-07-01 10:29] LABS: Hemoglobin A1c 5.6 % (3.8-5.6)
[2022-07-01 10:30] LABS: Erythrocyte Sedimentation Rate 14 mm/hr (0-20)
== END | disposition home or self-care (01) ==
LOC: MTLAB 07:06
PROVIDERS: PCP Family Medicine; Referring Provider Psychiatry & Neurology Neurology; Visit Provider Psychiatry & Neurology Neurology
DX: I65.29 Occlusion and stenosis of unspecified carotid artery (principal); Z87.39 Personal history of other diseases of the musculoskeletal system and connective tissue; R73.9 Hyperglycemia, unspecified
CPT/HCPCS: 36415; 80053; 80061; 83036; 85027; 85652

== ENCOUNTER → 2022-07-14 | Outpatient (CLI) | payer MEDICARE, OTHER, SELFPAY ==
--- NOTE | 2022-07-14 08:52 | CDU_ITS ---
Reason For Study: Lt Carotid Stent Rt. Velocities/BP Lt. Velocities/BP Prox CCA 115/23 cm/sec. Prox CCA 108/32 cm/sec. Mid CCA 91/26 cm/sec. Mid CCA 102/27 cm/sec. Dist CCA 67/20 cm/sec. Dist CCA 70/20 cm/sec. Prox ICA 178/63 cm/sec. Prox ICA 57/16 cm/sec. Mid ICA 189/67 cm/sec. Mid ICA 70/24 cm/sec. Dist ICA 69/31 cm/sec. Dist ICA 70/28 cm/sec. Rt. ICA/CCA = 2.1. Lt. ICA/CCA = 0.7. Prox ECA 88/12 cm/sec. Prox ECA 96/18 cm/sec. Rt. Vert. 95/33 cm/sec. Lt. Vert. 81/28 cm/sec. Right Extracranial There is heterogeneous, irregular atherosclerotic plaque noted in the right common carotid artery. There is heterogeneous, irregular atherosclerotic plaque noted in the right internal carotid artery. The atherosclerotic plaque causes acoustic shadowing. There is heterogeneous, irregular atherosclerotic plaque noted in the right external carotid artery. Antegrade flow is noted in the right vertebral artery. Left Extracranial There is heterogeneous, irregular atherosclerotic plaque noted in the left common carotid artery. There is heterogeneous, irregular atherosclerotic plaque noted in the left internal carotid artery. Stent noted Lt ICA. There is intimal thickening but no significant atherosclerotic plaque noted in the left external carotid artery. Antegrade flow is noted in the left vertebral artery. Procedure Carotid Duplex 11281. This is a Carotid Duplex examination using B-mode, color flow and specral Doppler. Exam performed in department. VL/Carotid Duplex Ultrasound Interpretation Summary Irregular calcific plaque at the proximal right internal carotid artery with 50 to 69% stenosis Less than 50% stenosis right external carotid artery Patent left carotid bulb and proximal internal carotid artery stent with less t taylor 50% stenosis Less than 50% stenosis left external carotid artery Patent antegrade vertebral arteries bilaterally Ordering Physician: Evan Car Referring Physician: Jalen Granado Performed By: Cathi Tripathi, CAROL, RVT
== END | disposition home or self-care (01) ==
LOC: CVS 08:51
PROVIDERS: PCP Family Medicine; Visit Provider Psychiatry & Neurology Neurology
DX: I65.21 Occlusion and stenosis of right carotid artery (principal)
CPT/HCPCS: 93880

== ENCOUNTER → 2023-03-03 | Outpatient (CLI) | payer MEDICARE, OTHER, SELFPAY ==
[2023-03-03 10:50] LABS: AST(SGOT) 17 U/L (15-37); Alanine Aminotransfer ALT/SGPT 22 U/L (16-61); Albumin, Serum 3.4 g/dL (3.2-5.0); Alkaline Phosphatase 111 U/L (45-117); Bilirubin, Direct 0.12 mg/dL (0.00-0.30); Cholesterol 137 mg/dL (200); Globulin 3.3 g/dL (2.2-4.2); High Density Lipoprotein 52 mg/dL; Protein, Total 6.7 g/dL (6.4-8.2); Triglycerides 137 mg/dL; Very Low Density Lipoprotein 27 mg/dL (5-40)
== END | disposition home or self-care (01) ==
LOC: MTLAB 07:05
PROVIDERS: PCP Family Medicine; Referring Provider Psychiatry & Neurology Neurology; Visit Provider Psychiatry & Neurology Neurology
DX: I65.29 Occlusion and stenosis of unspecified carotid artery (principal); Z86.73 Personal history of transient ischemic attack (TIA), and cerebral infarction without residual deficits; E78.5 Hyperlipidemia, unspecified
CPT/HCPCS: 36415; 80061; 80076

== ENCOUNTER → 2023-03-20 | Outpatient (CLI) | payer MEDICARE, OTHER, SELFPAY ==
[2023-03-20 10:26] LABS: Hemoglobin 14.6 g/dL (13.0-16.5); Mean Corp Hgb Conc 33.2 g/dL (32-36); Mean Corpuscular Hgb 30.9 pg (27.0-32.0); Mean Corpuscular Volume 93.2 fL (80-94); Mean Platelet Vol. 9.4 fl (6.2-12.0); Platelet Count 189 K/mm3 (150-450); RBC Distribution Width CV 12.3 % (11.6-14.6); Red Blood Count 4.72 M/mm3 (4.6-6.2); White Blood Count 6.8 K/mm3 (4.4-11.0)
[2023-03-20 10:37] LABS: Anion Gap 3 (5-15); BUN 17 mg/dL (7-18); BUN/Creat Ratio 17.3 RATIO (10-20); Calcium,Total 8.9 mg/dL (8.5-10.1); Chloride 108 mmol/L (98-107); Creatinine, Serum 0.98 mg/dL (0.70-1.30); EST Glomerular Filtration Rate 79 mL/min (>60); Est Glom Filt Rate - Afr Amer 96 mL/min (>60); Glucose 102 mg/dL (74-106); Potassium 4.2 mmol/L (3.5-5.1); Sodium Level 139 mmol/L (136-145)
== END | disposition home or self-care (01) ==
LOC: MTLAB 08:29
PROVIDERS: PCP Family Medicine; Referring Provider Family Medicine; Visit Provider Family Medicine
DX: Z01.818 Encounter for other preprocedural examination (principal); M31.6 Other giant cell arteritis
CPT/HCPCS: 36415; 80048; 85027

== ENCOUNTER 2023-04-08 05:51 | Day surgery (SDC) | payer MEDICARE, OTHER, SELFPAY ==
[2023-04-08 06:11] VITALS: BP 132/91; PULSE 82; RESP 18; TEMP 36.3; O2SAT 97; BMI 23.1
[2023-04-08] MEDS: Lactated Ringers 1,000 ML 15 ML IV (06:23)
--- NOTE | 2023-04-08 06:57 | PCM.HP.STD ---
HPI - General HPI Narrative REMBERTO VIDAL, is a 72 M who presents for left endoscopic carpal tunnel release. no changes to h and p. wrist marked. rab and post op instructions. will proceed. pt was asking for a cortisone injection but we will defer that to the FU visit in the office to eliminate any source of confusion this morning. MR#: [id number] Acct: [id number] Name: REMBERTO VIDAL Rep #: [id number] : 1950 Provider: Dr. Abdi Hardy MD Age/Sex: 72/M Location: [facility] [place].[facility] Status: Signed Intake Vital Signs 02/05/2307:56 Height 6 ft Weight: 170 lb 6 oz BMI 23.1 BP 126/74 H Blood Pressure Location Lt brachial Position Sitting Respiration 17 Pulse 86 Pulse Source Monitor Temp 98.0 F Temp Source Temporal Pulse Oximetry (%) 97 Oxygen Delivery Method room air Intake Visit Reasons: left wrist Chief Complaint: Is patient in pain?: Yes Allergies No Known Allergies Allergy (Verified 03/02/23 08:14) Medications finasteride 5 mg tablet 5 mg PO DAILY PROSTATE 11/26/20 [History Confirmed 03/02/23] Bilateral wrist splints for carpal tunnel syndrome #2 ea 10/02/22 [Rx Confirmed 03/02/23] aspirin 81 mg tablet,delayed release (Adult Low Dose Aspirin) 162 mg PO DAILY 12/03/22 [History Confirmed 03/02/23] tamsulosin 0.4 mg capsule mg PO 12/03/22 [History Confirmed 03/02/23] atorvastatin 20 mg tablet (Lipitor) 20 mg PO DAILY CHOLESTEROL #30 tabs 02/05/23 [Rx Confirmed 03/02/23] gabapentin 600 mg tablet 600 mg PO QHS #30 tabs 02/05/23 [Rx Confirmed 03/02/23] duloxetine 60 mg capsule,delayed release 60 mg PO DAILY 03/02/23 [History Confirmed 03/02/23] PFSH Medical History Arthritis Back pain Cerebrovascular accident (CVA) DVT (deep venous thrombosis) Fibromyalgia Former smoker High cholesterol History of echocardiogram History of pain when walking History of ulceration Hyperlipidemia Hypertension Insomnia Leg cramps Migraine headache Prostate disease Skin cancer Wears dentures Wears glasses Wears hearing aid Surgical History History of carotid endarterectomy Social History adopted: Yes Smoking Status: Former smoker Tobacco: How many years used: 40 how long ago did patient quit smoking: quit in November 2020 second hand exposure: No alcohol intake: current alcohol intake frequency: a few times a month substance use type: does not use what type of physical activity do you participate in: none bravo/quaker: Congregation seatbelt use: always HPI left wrist Details: This documentation accurately reflects the service provided and the decisions made by me, Dr. Abdi Hardy MD 03/02/2313. Part of today?s visit was documented by [ ], acting as scribe. REMBERTO VIDAL is a 72 year old M here today for Ortho Exam General General: Yes no acute distress Neurologic: Yes alert and Yes oriented x3 Psychologic: Yes reasonable and appropriate Right Wrist/Hand Skin/Wound: Yes CDI, No Swelling, No Ecchymosis, Yes nail intact and Yes capillary refill normal Right Wrist: Yes Phalen's and Thenar Atrophy; No Tinel's Motor: EPL: 5, FDP-2: 5, 1st Dorsal Interosseous: 5 and APB: 5 Sensation: Radial: I, Ulnar: I and Median: I Left Wrist/Hand Skin/Wound: Yes CDI, No Swelling, No Ecchymosis, Yes nail intact, Yes capillary refill normal and No erythema Left Wrist: Yes ROM-Extension 0-60, Yes ROM-Flexion 0-80, Yes ROM-Pronation 0-80, Yes ROM-Supination 0-90, Yes Phalen's and Yes Thenar Atrophy; No Tinel's Motor: EPL: 5, FDP-2: 5, 1st Dorsal Interosseous: 5 and APB: 5 Sensation: Radial: I, Ulnar: I and Median: I WRIST: neg tinel at elbows Supplemental Info Nerve conduction studies from November 24, 2022 indication numbness and tingling of the hands. The findings are 1. The bilateral median sensory and motor latencies at the wrist are prolonged. 2. Normal monopolar needle examination for broad sampling of bilateral upper extremity muscles. 1. Left median mononeuropathy at the wrist. This is consistent with a diagnosis of carpal tunnel syndrome moderate in degree. 2. Right median mononeuropathy at the wrist. This is consistent with a diagnosis of carpal tunnel syndrome mild in degree. 3. No radicular or myopathic features are identified. Coding Level of Care Code Off vis,est,level 4 Diagnoses Bilateral carpal tunnel syndrome G56.03 Assessment and Plan Assessment and Plan (1) Bilateral carpal tunnel syndrome: Status: Acute Plan: 72-year-old man bilateral carpal tunnel syndrome. This is moderate in nature on the left side. Patient wishes to go ahead with left carpal tunnel release. We discussed the pros and cons risks and benefits of that versus nonoperative treatment as well as the postoperative recovery 2 weeks to heal the incision remove the sutures in 6 weeks before going back to heavy lifting and grasping. The patient understand and we have booked and consented him for left endoscopic carpal tunnel release. Pt does have some medical hx that will increase surgical risks. Pros and cons risks and benefits were discussed with the patient including but not limited to infection, pain, stiffness, bleeding, damage to surrounding structures, neurovascular injury, recurrence or retear, failure or wear of hardware or fixation, instability, fracture, deep vein thrombosis and pulmonary embolism, anesthetic risks, , patient dissatisfaction, need for further surgery and other risks. Patient understood and wished to proceed with surgery, and signed the informed consent documentation. [facility] Medical History (Updated 03/31/23 @ 08:33 by Shana Alan) Arthritis Back pain Cerebrovascular accident (CVA) De Quervain's disease (radial styloid tenosynovitis) DVT (deep venous thrombosis) Fibromyalgia Former smoker High cholesterol History of echocardiogram History of ulceration Hyperlipidemia Insomnia Leg cramps Migraine headache Prostate disease Skin cancer Wears dentures Wears glasses Wears hearing aid Home Medications finasteride 5 mg tablet 5 mg PO DAILY PROSTATE 11/26/20 [History Last Taken Unknown] Bilateral wrist splints for carpal tunnel syndrome #2 ea 10/02/22 [Rx Last Taken Unknown] aspirin 81 mg tablet,delayed release (Adult Low Dose Aspirin) 162 mg PO DAILY 12/03/22 [History Last Taken 04/01/23] tamsulosin 0.4 mg capsule 0.4 mg PO QHS 12/03/22 [History Last Taken Unknown] atorvastatin 20 mg tablet (Lipitor) 20 mg PO DAILY CHOLESTEROL #30 tabs 02/05/23 [Rx Last Taken Unknown] duloxetine 60 mg capsule,delayed release 60 mg PO DAILY 03/02/23 [History Last Taken Unknown] Allergy/AdvReac Type Severity Reaction Status Date / Time No Known Allergies Allergy Verified 04/08/23 06:11 Surgical History (Updated 03/31/23 @ 08:33 by Shana Alan) History of carotid endarterectomy Hx of laminectomy Social History adopted: Yes Smoking Status: Former smoker Tobacco: How many years used: 40 how long ago did patient quit smoking: quit in November 2020 second hand exposure: No alcohol intake: current alcohol intake frequency: a few times a month substance use type: does not use what type of physical activity do you participate in: none bravo/quaker: Congregation seatbelt use: always Vital Signs Vital Signs Vital Signs: 04/08/23 06:11 04/08/23 06:11 Temperature 97.4 F L Temperature Source Temporal Pulse Rate 82 Respiratory Rate 18 Respiratory Pattern Normal Blood Pressure 132/91 H Blood Pressure Mean 104 Blood Pressure Source Monitor Blood Pressure Position Semi-Fowlers Blood Pressure Location Left Arm Pulse Ox 97 Oxygen Delivery Method Room Air Weight Weight: 170 lb 3.15 oz Body Mass Index (BMI) 23.1
[2023-04-08] MEDS: Cefazolin 2 GM in 0.9% Normal Saline (100mL Bag) 100 ML IV (07:26)
--- NOTE | 2023-04-08 07:57 | PCM.OPRPT ---
Problems Associated Problem List Diagnoses (1) Bilateral carpal tunnel syndrome: Report of Operation Date of Procedure: 04/08/23 Pre-Operative Diagnosis: Left carpal tunnel syndrome Post-Operative Diagnosis: same Surgery/Procedure Performed:: Left endoscopic carpal tunnel release Surgeon: Abdi Hardy Type of Anesthesia: Local and MAC Anesthesiologist: Clint Friedman Estimated Blood Loss (mL): 5 Description of Procedure: Patient was brought to the operating room theater.? The patient was administered 2g iv ancef prior to the start of the procedure.? Placed supine on the operating room table.? Anesthesia induced.? SCDs on the legs.? Tourniquet applied to the left upper operative extremity, appropriately padded. Arm table used. Operative extremity prepped and draped in the usual sterile fashion with chlorhexidine-based prep solution allowing over 3 minutes drying time prior to draping.? Preoperative timeout performed to confirm the site patient and the surgery. I used the [facility] endoscopic carpal tunnel kit / technique. 0.25% bupivicaine at incision site. ? Tourniquet up at 250mmg. I made a transverse 2 cm incision in line with the? transverse wrist crease.? This was in line with the fourth digit.? I carried the dissection down through skin and subcutaneous tissue achieved meticulous hemostasis. Just ulnar to palmaris tendon.? I incised the antebrachial fascia.? I passed sequential dilators into the carpal tunnel along the radial border of the Guyon's canal aiming for the fourth digit with the hand in extension. I used a synovial elevator to identify the transverse fibers of the transverse carpal tunnel ligament.? Passed the scope into the carpal tunnel. Once I had identified the full proximal and distal extent of the ligament I fully released the ligament under direct visualization by deploying the blade and slowly withdrawing the scope made sequential passes until I no longer felt tension as well as the entire extent of the ligament was released under direct visualization.? Sounded the tunnel with molina tenotomy scissors, complete release, no bands. Pictures taken and saved before and after release. Tourniquet let down. Wound thoroughly irrigated.?Meticulous hemostasis achieved.? Incisions closed with 3-0 monocryl for the skin.?Skin was cleaned and dried. steri strips, adaptic and opsite border dressing. Patient woken up,? transferred off the operating room table and taken to postanesthetic care unit in stable condition. All sponge needle instrument counts were correct no complications.? Plan for the patient to be discharged home according to day surgery criteria when they are comfortable. Follow-up in the office in 2 days time. Gentle ROM hand and elbow no heavy lifting. Complications none Admit VTE Documentation VTE Present on Admission: No VTE Mechan Device Prophylaxis: SCD's VTE Pharm Prophylaxis ordered?: No Reason prophylaxis not ordered:: Treatment Not Indicated Procedures Musculoskeletal [id number]-29xxx: [id number] WRIST ENDOSCOPY/SURGERY
--- NOTE | 2023-04-08 08:00 | DCINST_ITS ---
Discharge Instructions Diet Discharge Diet: No restrictions Activity Ice area for (Minutes): 10 Lifting Restrictions: no heavy lifting or gripping, ok for finger and wrist ROM Keep extremity elevated above heart level: Operative Extremity Dressing / Incision Call your doctor if your incision/area has: Continuous Slow Oozing, Sudden Increased Bleeding, Increased Pain/ Swelling, Increased Redness, Foul Smelling Discharge and Swelling at the incision site Remove Dressing in: leave in place till F/U Follow Up Care Please Follow Up With: Abdi Hardy MD When: 2-3 days Test Results: Test results from this visit will be discussed in further detail at your follow- up appointment, if applicable. Discharge Plan Admission Attending Provider: Abdi Hardy Primary Care Provider: Fransisco Grandao Instructions Patient Instructions: Carpal Tunnel Release Surgery Discharge Orders/Prescriptions Prescriptions: No Action (DME) Bilateral wrist splints for carpal tunnel syndrome See Rx Instructions .Route .MEDSUPPLY Qty: 2 0RF Rx Instructions: As directed atorvastatin [Lipitor] 20 mg tablet 20 mg PO DAILY Qty: 30 6RF aspirin [Adult Low Dose Aspirin] 81 mg tablet,delayed release (DR/EC) 162 mg PO DAILY tamsulosin 0.4 mg capsule 0.4 mg PO QHS duloxetine 60 mg capsule,delayed release(DR/EC) 60 mg PO DAILY finasteride 5 mg tablet 5 mg PO DAILY Patient Comments: TAKE 1 TABLET BY MOUTH ONCE DAILY Referrals / Follow Up: Fransisco Granado MD [Primary Care Provider] - Abdi Hardy MD [Med Staff - Active Staff] - Disposition Disposition (needs filled in before D/C Order can be placed): Home, Self Care
[2023-04-08 08:02] VITALS: BP 108/70; BP 132/91; PULSE 71; RESP 14; TEMP 36.5; O2SAT 96
[2023-04-08 08:05] VITALS: BP 115/69; BP 132/91; PULSE 72; RESP 14; O2SAT 96
[2023-04-08 08:10] VITALS: BP 118/69; BP 132/91; PULSE 67; RESP 14; O2SAT 97
[2023-04-08 08:17] VITALS: BP 124/62; BP 132/91; PULSE 68; RESP 14; TEMP 36.3; O2SAT 97
[2023-04-08 08:37] VITALS: BP 132/91
== END 2023-04-08 08:41 | disposition home or self-care (01) ==
LOC: SDC 05:51 → AC 05:52
PROVIDERS: PCP Family Medicine; Referring Provider Orthopaedic Surgery Sports Medicine; Visit Provider Orthopaedic Surgery Sports Medicine
PROC: (CPT 29848; principal; 2023-04-08 07:15)
DX: G56.03 Carpal tunnel syndrome, bilateral upper limbs (principal); E78.5 Hyperlipidemia, unspecified; M79.7 Fibromyalgia; Z87.891 Personal history of nicotine dependence; I10 Essential (primary) hypertension; Z86.718 Personal history of other venous thrombosis and embolism; Z86.73 Personal history of transient ischemic attack (TIA), and cerebral infarction without residual deficits
CPT/HCPCS: 29848; 01810; J7120; J2405

== ENCOUNTER → 2023-06-22 | Outpatient (CLI) | payer MEDICARE, OTHER, SELFPAY ==
--- NOTE | 2023-06-22 07:51 | CDU_ITS ---
Reason For Study: Carotid stenosis Rt. Velocities/BP Lt. Velocities/BP Prox CCA 94.9/16.8 cm/sec. Prox CCA 87.6/20 cm/sec. Mid CCA 81.7/14.6 cm/sec. Mid CCA 82.6/15.1 cm/sec. Dist CCA 79.5/17.9 cm/sec. Dist CCA 43.2/10.2 cm/sec. Prox ICA 202.6/51.1 cm/sec. Prox ICA 52.2/13.5 cm/sec. Mid ICA 130.2/29.2 cm/sec. Mid ICA 55.1/19.2 cm/sec. Dist ICA 79.1/24.3 cm/sec. Dist ICA 70.2/22 cm/sec. Rt. ICA/CCA = 2.48. Lt. ICA/CCA = 0.85. Prox ECA 137.5/13.3 cm/sec. Prox ECA 112/17 cm/sec. Rt. Vert. 72.9/17.9 cm/sec. Lt. Vert. 57.9/17.3 cm/sec. Right Extracranial There is heterogeneous, irregular atherosclerotic plaque noted in the right common carotid artery. There is heterogeneous, irregular atherosclerotic plaque noted in the right internal carotid artery. The atherosclerotic plaque causes acoustic shadowing. There is heterogeneous, irregular atherosclerotic plaque noted in the right external carotid artery. Antegrade flow is noted in the right vertebral artery. Left Extracranial There is heterogeneous, irregular atherosclerotic plaque noted in the left common carotid artery. There is heterogeneous, irregular atherosclerotic plaque noted in the left internal carotid artery. Stent noted in the CCA distal to ICA mid. There is heterogeneous, irregular atherosclerotic plaque noted in the left external carotid artery. Antegrade flow is noted in the left vertebral artery. VL/Carotid Duplex Ultrasound Interpretation Summary Extensive irregular plaque with calcific shadowing at the proximal right inclusion intern al carotid artery with 50 to 69% stenosis but closer to the 69% range. Less than 50% stenosis right external carotid artery Patent stent noted within the left common carotid extending into the distal int ernal carotid artery with less than 50% stenosis of the internal carotid Less than 50% stenosis left external carotid Patent and antegrade vertebrals bilaterally Very Slight velocity increase in the right internal carotid artery from the pre vious examination of July 14, 2022 Ordering Physician: Evan Car Referring Physician: Jalen Grandao MD Performed By: Roula Austin RVT
--- OUTSIDE RECORDS SUMMARY | 2023-06-22 08:14 | XMS RPT_ITS | CCD ---
Author Name Unknown Address [address] [place] [address] Organization [facility] Care Team Providers Care Timber Packer Name Role Phone RICKI NAJERA Primary Care UnavailKIEL Aldana Attending Unavailable SELF, SELF Referring Unavailable UNKNOWN, DOC Referring Unavailable RICKI NAJERA Primary Care Unavailabl e CONSULT, SURGERY - NEURO Consulting Unavail able ALYSSA LEE Admitting Unavailable JAYLON TIMMONS Attending Unavailable RICKI NAJERA Primary Care UnavailRicki Benton MD Primary Care Provider Medications Current Medications Medication Drug Class(es) Dates Sig (Normalized) Sig (Original) aspirin 325 mg delayed release oral tablet (4 sources) Platelet Aggregation Inhibitor, Nonsteroidal Anti-inflammatory Drug Start: 11-29-2020 End: 12-03-2020 take 1 tablet by mouth once daily ASPIRIN EC [address] Take 1 tablet by mouth daily. 60 tablet 1 12/03/2020 Active Completed/Discontinued Medications Medication Drug Class(es) Dates Sig (Normalized) Sig (Original) Acetaminophen (2 sources) Start: 11-30-2020 End: 12-03-2020 take 1 tablet by mouth every four hours as needed acetaminophen (TYLENOL) tablet 650 mg Problems Problem Classification Problem Date Documented Da te Episodic/Chronic Acute cerebrovascular disease (4 sources) Carotid artery obstruction; Translations: [Cerebral infarction due to unspecified occlusion or stenosis of unspecified carotid artery] Onset: 11-26-2020 Chronic Occlusion or stenosis of precerebral arteries (4 sources) Left carotid artery stenosis; Translations: [Occlusion and stenosis of left carotid artery] Onset: 11-26-2020 Chronic Results Test Name Value Interpretation Reference Range Facil ity Vital Signs Date Time Vital Sign Value Performing Clinician Faci lity 12-03-2020 08:24-0400 Body temperature 97.9 [degF] Corey Clements MD Work Phone: [facility] 12-03-2020 08:24-0400 Diastolic blood pressure 53 mm[Hg] Corey Clements MD Work Phone: [facility] 12-03-2020 08:24-0400 Heart rate 51 /min Corey Clements MD Work Phone: [facility] 12-03-2020 08:24-0400 Respiratory rate 16 /min Corey Clements MD Work Phone: [facility] 12-03-2020 08:24-0400 SaO2% (BldA) [Mass fraction] 93 % Corey Clements MD Work Phone: [facility] 12-03-2020 08:24-0400 Systolic blood pressure 94 mm[Hg] Corey Clements MD Work Phone: [facility] 12-03-2020 00:29-0400 Body mass index (BMI) [Ratio] 21.48 kg/m2 Corey Clements MD Work Phone: [facility] 12-03-2020 00:29-0400 Body weight 73.85 kg Corey Clements MD Work Phone: [facility] 11-28-2020 11:54-0400 Body height 185.4 cm Corey Clements MD Work Phone: [facility] Encounters Encounter Date Encounter Type Care Provider Facility Start: 01-21-2021 ambulatory RICKI alvarez:[facility] Start: 12-03-2020 ambulatory RICKI alvarez:[facility] Start: 11-26-2020 End: 12-03-2020 Evaluation and management of inpatient DOC UNKNOWN Facility:[facility] Start: 11-26-2020 End: 12-03-2020 Evaluation and management of inpatient Corey Clements MD Work Phone: [id number] Procedures Date Procedure Procedure Detail Performing Clinician Start: 12-03-2020 Creatinine blood Rosemary Brittany Xiong TEST LEAD-TEST [facility]KE[facility]INDER Work Phone: Start: 12-02-2020 Assay of magnesium Bethanie Soto Xiong TEST LEAD-TEST [facility]ER Work Phone: Start: 12-01-2020 Assay of magnesium Bethanie y Brittany Xiong TEST LEAD-TEST [facility]ER Work Phone: Start: 11-30-2020 Glucose measurement, blood Dick Jimenez MD Work Phone: Start: 11-30-2020 CARDIAC RHYTHM Other Ot her Start: 11-30-2020 End: 11-30-2020 Antibody screen Corey Clements MD Work Phone: Plan of Treatment Date Care Activity Detail Author Start: 11-27-2025 Fasting lipid profile LIPID SCREENING [facility] Start: 05-01-2021 End: 05-01-2021 Patient encounter procedure 05/01/2021 Office Visit Neurology Madisyn Eisenberg, Dawit Mcclelland MD [address] [place] [address] [facility]rology [facility] Start: 12-31-2020 End: 12-31-2020 Patient encounter procedure 12/31/2020 Office Visit Neurologic Surgery Kiel Larsen, TEST LEAD-TEST SKEIN WINDER [address] [place] [address] [facility] Start: 12-12-2020 Influenza vaccination INFLUENZA VACCINE (#1) [facility] Start: 2013 Abdominal aortic aneurysm screening ABDOMINAL AORTIC ANEURYSM HIGH RISK SCREEN [facility] Start: 2013 Pneumococcal vaccination PNEUMOCOCCAL VACCINE SERIES (1 of 2 - PCV13) [facility] Start: 1998 Prostate specific antigen measurement PROSTATE CANCER SCREENING DISCUSSION [facility] Start: 1998 Zoster vaccine hzv live for subcutaneous use ZOSTER (SHINGLES) VACCINE (1 of 2) [facility] Start: 1993 Colonoscopy COLORECTAL CANCER SCREENING DISCUSSION [facility] Start: 09-05-1967 Third diphtheria, tetanus and acellular pertussis (DTaP) vaccination TDAP (ADULT) [facility] Start: 1966 Tetanus vaccination TETANUS [facility] Start: 1948 Hepatitis C antibody, confirmatory test HEPATITIS C VIRUS SCREENING [facility] End: 11-27-2020 FLUORO IMAGING FOR NEURO ENDOVASCULAR [facility] Work Phone: Payers Date Payer Category Payer Medicare [id number] 2020 Medicare MEDICARE MEDICAR E A AND B [id number] 2020-Present [address] [place] [address] [id number] 2020 Private Health Insurance [id number] 1948 Unknown [id number] 1948 Unknown [id number] 1948 Unknown [id number] Unknown GENERIC PAYOR ME DICARE SUPPLEMENT [id number] Effective for all dates [address] [address] [place] [address] [id number] Social History Date Type Detail Facility Start: 11-26-2020 Tobacco smoking stat us NHIS Current every day smoker [facility] History of tobacco use Cigarette Smoker [facility] Start: 11-26-2020 End: 12-03-2020 Cigarettes smoked current (pack per day) - Reported [facility] Start: 11-26-2020 Tobacco use and exposure Never used [facility] Start: 12-03-2020 Alcohol intake Current drinke r of alcohol (finding) [facility] Start: 1950 Sex Assigned At Not on file [facility] Exposure to SARS-CoV -2 (event) Not sure [facility] Medical Equipment Procedure Code Equipment Code Equipment Origin al Text Equipment Identifier Dates Device Closure Cordis Mynxgrip 5fr Balloon Catheter - [id number] Start: 11-27-2020 Stent Protege Ex prt Gps 8/6mm 6fr 40mm 135cm Rapid Exchange - [id number] Start: 11-30-2020 Device Closure Cordis Mynxgrip 6-7fr Balloon Catheter - [id number] Start: 11-30-2020 Note 12-03-2020 Nursing Notes - Marie Pelayo RN - 12/03/2020 10:23 AM EDTNursing Notes - Yumiko Og RN - 12/03/2020 10:21 AM EDTPlan of Care - Marie Pelayo RN - 12/03/2020 10:19 AM EDT Note Date & Type Note Facility 12-03-2020 Miscellaneous Notes Discharge education completed with patient. AVS and printed prescriptions in hand. Questions encouraged. Patient denies further questions. PIVs removed per policy and dressings applied. Patient stable at this time. Ischemic stroke information reviewed and given to pt. Multiple reviews of risk factors as well as signs and symptoms of a stroke. Care plan documentation complete. I spoke with Remberto Ann this morning as Quality Specialist for the [facility] at the [facility]. We reviewed the FAST magnet (Facial droop or uneven smile, Arm numbness or weakness - especially on one side, Speech that is slurred or difficult to talk or understand, and Time to call 911). I indicated that I would like to call post hospitalization to follow up with the patient and inquired whom best to contact (patient/family) as well as the best number to reach this person. I then left my card assuring the patient and/or family that they should feel free to contact me with any questions. Problem: Patient Care Overview Goal: Plan of Care Review Outcome: Adequate for Discharge Goal: Individualization & Mutuality Outcome: Adequate for Discharge Goal: Discharge Needs Assessment Outcome: Adequate for Discharge Goal: Interdisciplinary Rounds/Family Conf Outcome: Adequate for Discharge Problem: Stroke (Ischemic) (Adult) Goal: Signs and Symptoms of Listed Potential Problems Will be Absent, Minimized or Managed (Stroke) Description: Signs and symptoms of listed potential problems will be absent, minimized or managed by discharge/transition of care (reference Stroke (Ischemic) (Adult) CPG). Outcome: Adequate for Discharge Problem: Dysphagia (Adult) Goal: Identify Related Risk Factors and Signs and Symptoms Description: Related risk factors and signs and symptoms are identified upon initiation of Human Response Clinical Practice Guideline (CPG) Outcome: Adequate for Discharge Goal: Functional/Safe Swallow Description: Patient will demonstrate the desired outcomes by discharge/transition of care. Outcome: Adequate for Discharge Goal: Compensatory Techniques to Improve Safety/Function with Swallowing Description: Patient will demonstrate the desired outcomes by discharge/transition of care. Outcome: Adequate for Discharge Problem: Nutrition, Imbalanced: Inadequate Oral Intake (Adult) Goal: Improved Oral Intake Description: Patient will demonstrate the desired outcomes by discharge/transition of care. Outcome: Adequate for Discharge 0430 Notified [place] MD Mercado of patients BP via secure chat: FYI his last two BPs have been 94/56 and 96/52. Pt denying symptoms. Just wanted to notify you since the order is to notify for SBP less than 110. Aphasia improving from previous night. Motor strength 5/5. EOMI. PERRL - 3 mm Problem: Dysphagia (Adult) Goal: Identify Related Risk Factors and Signs and Symptoms Description: Related risk factors and signs and symptoms are identified upon initiation of Human Response Clinical Practice Guideline (CPG) Outcome: Met This Shift Goal: Functional/Safe Swallow Description: Patient will demonstrate the desired outcomes by discharge/transition of care. Outcome: Met This Shift Problem: Stroke (Ischemic) (Adult) Goal: Signs and Symptoms of Listed Potential Problems Will be Absent, Minimized or Managed (Stroke) Description: Signs and symptoms of listed potential problems will be absent, minimized or managed by discharge/transition of care (reference Stroke (Ischemic) (Adult) CPG). Outcome: Ongoing Problem: Dysphagia (Adult) Goal: Compensatory Techniques to Improve Safety/Function with Swallowing Description: Patient will demonstrate the desired outcomes by discharge/transition of care. Outcome: Ongoing Flowsheets (Taken 12/01/2020 0838) Compensatory Techniques to Improve Safety/Function with Swallowing: achieves outcome BP improved. Pt still has expressive aphasia. Levo gtt started. Mathias was kinked and almost falling out so it was removed. Neurovascular update: Pt returned from L ICA stent placement. Now with aphasia and dizziness. Nystagmus with left horizontal gaze. D/w Dr Lee and NS, will give 500 ml bolus once with SBP goal 120-140, lay head of bed flat and assess for improvement. If no improvement in exam, will obtain CTH/CTA. Will continue to monitor. Provider NIH Stroke Scale NIH Interval (Provider): daily NIH Level of Conciousness (Provider): 0 NIH LOC Questions (Provider): 0 NIH LOC Commands (Provider): 0 NIH Best Gaze (Provider): 0 NIH Visual (Provider): 0 NIH Facial Palsy (Provider): 0 NIH Left Arm Motor (Provider): 0 NIH Right Arm Motor (Provider): 0 NIH Left Leg Motor (Provider): 0 NIH Right Leg Motor (Provider): 0 NIH Limb Ataxia (Provider): 0 NIH Sensory (Provider): 0 NIH Best Language (Provider): 1 NIH Dysarthria (Provider): 0 NIH Extinction and Inattention (Provider): 0 NIH Total Score (Provider): 1 BLANQUITA Cash 11/30/2020 1:[address] Claudio at bedside. Administered 5 mcg of Phenylepherine IVP. Able to answer orientation questions correctly with SBP >120. 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 PROCEDURE: Carotid angioplasty and stenting with the Protege carotid system and distal embolic protection DURATION OF PROCEDURE: Approximately 30 minutes. OPERATORS: José Preston MD, was the attending physician. He supervised the entire procedure. Felicia Pacheco MD, was the fellow. Dr. Preston actively participated in catheter manipulation and were present in the room for the entire procedure. VESSELS CATHETERIZED (in sequence): Left common carotid artery Left common femoral artery VESSEL TREATED: Left internal carotid artery ANESTHESIA: Patient was under conscious sedation. Pre-, intra-, and post-procedure monitoring records are available in the chart. MEDICATIONS GIVEN: Heparin 5000 units IV MATERIALS USED: 5 Indonesian micropuncture kit Lincoln mandrel wire 0.035 Terumo Glidewire 6 Indonesian Bryan Terumo sheath 6 Indonesian shuttle sheath Traxcess 14 soft microwire 5 Indonesian Gonzales 2 Selector catheter Protege 8 6 mm taper x 40 mm carotid stent system Spyder 4 mm distal embolic protection Jonny Monorail 5.0 x 30 mm angioplasty balloon Visipaque-270 contrast material (120 cc) Mynx closure device TECHNIQUE: After informed written consent from the patient's daughter was obtained and the patient was intubated, he was brought to the angiography room and prepped and draped in the usual fashion. Access to the vascular system was gained in the usual way by a single-wall puncture of the right femoral artery; a 6 Indonesian short sheath was introduced into the right femoral artery. The short sheath was exchanged for the shuttle sheath and bilateral common carotid angiograms were performed. Using fluoroscopic guidance, selective catheterization was done of the right common carotid artery. Digital angiograms were performed of the above listed vessels, centered over the head and neck. Using fluoroscopic guidance, the arch was navigated with a drchrono 2 selector catheter in the shuttle sheath and a [employer] glidewire. The left common carotid artery was selectively catheterized. The shuttle sheath was then advanced and the glidewire and select catheter were removed. The spyder system was then placed in the pre-cavernous right ICA over the traxcess microwire. The Jonny Monorail 4.0 x 30 mm angioplasty balloon was placed under fluoroscopic guidance in the proximal right ICA and used to predilate the proximal right ICA stenosis by inflating it to a nominal pressure. The balloon was removed and the Protege 8/6 mm x 40 mm carotid stent system was then placed across the proximal right ICA/distal common carotid artery and deployed without any difficulty using fluoroscopic guidance. Control angiograms of the neck and intraranial vasculature showed proximal ICA stenosis to <5% when compared to the distal left ICA. The stent is widely patent and there is good vessel wall apposition. The sheath was then withdrawn to the descending aorta and exchanged for the 6F short sheath over the glidewire. An angiogram of the right femoral artery was obtained to confirm the possibility of using a mynx device; the artery was deemed appropriate for use of the device. The sheath was removed, and hemostasis was obtained by the application of a mynx closure device. A sterile Tegaderm was then applied over the puncture site. COMPARISON: Angiogram 11/27/20 FINDINGS: LEFT COMMON CAROTID ARTERY, CERVICAL: There is a 50% stenosis of the left ICA immediately distal to the origin and an aneurysmal dilation within the calcified plaque. There is normal opacification of left ECA branches. LEFT COMMON CAROTID ARTERY, CEREBRAL: There is no evidence of aneurysm, focal stenosis, or early draining vein. There is normal opacification of left ECA branches. LEFT COMMON CAROTID ARTERY, CERVICAL, POST-DILATION BALLON ANGIOPLASTY: Marked reduction in the proximal right ICA stenosis with no evidence of spasm or dissection. RIGHT COMMON FEMORAL ARTERY: The 6 Indonesian right femoral sheath is above the bifurcation of the right common femoral artery. COMPLICATIONS: None. IMPRESSION: Successful left carotid artery angioplasty and stenting with reduction of the initial 50% stenosis to <5% stenosis when compared to the distal right internal carotid artery. There is no spasm dissection or distal emboli. Associated attestation - José Preston MD - 12/01/2020 9:44 AM EDT Agree with above as written. I was present for the entire procedure. Nutrition Plan of Care: 1. Continue current diet order. 2. Will provide Ensure Enlive with lunch Ensure Enlive (350 kcal, 20 g PRO each) once daily with Lunch . 3. Monitor for significant weight changes. 4. Monitor and encourage po intakes with goal of average po being 75%. 5. dental technology advisor to follow. JORDY You Pager:[phone] Remberto Ann ([id number]) PRE OPERATIVE DIAGNOSIS Symptomatic carotid artery stenosis, left [I65.22] POST OPERATIVE DIAGNOSIS Post-Op Diagnosis Codes: * Symptomatic carotid artery stenosis, left [I65.22] PROCEDURE PERFORMED Procedure(s) (LRB): PLACEMENT CATH SELECTIVE INTERNAL CAROTID ARTERY W/ ANGIO IPSILAT INTRACRANIAL CAROTID W/ RAD S&I (Left) PLACEMENT STENT INTRAVASCULAR INTRACRANIAL PERCUTANEOUS (Left) PRIMARY CLOSURE N/A INTRAOPERATIVE FINDINGS 50% left ICA stenosis with pseudoaneurysm; left carotid angioplasty and stent placement with distal embolic protection; good placement of stent and improvement in vessel caliber at end of procedure SURGEON Surgeon(s) and Role: * José Preston MD - Primary * Felicia Pacheco MD - Fellow ANESTHESIOLOGIST Anesthesiologist: Pita Claudio MD PREKINDERGARTEN TEACHER: Rosemary Price APRN-PREKINDERGARTEN TEACHER SURGICAL STAFF Furnace Liner: Geraldine Butts RN Fish Machine Feeder: Matthew Stapleton; Maria R [place] COMPLICATIONS None ESTIMATED BLOOD LOSS Minimal SPECIMENS No specimen sent * No specimens in log * Felicia Pacheco MD November 30, 2020 10:24 AM Problem: Patient Care Overview Goal: Plan of Care Review Outcome: Ongoing Goal: Individualization & Mutuality Outcome: Ongoing Goal: Discharge Needs Assessment Outcome: Ongoing Goal: Interdisciplinary Rounds/Family Conf Outcome: Ongoing Problem: Stroke (Ischemic) (Adult) Goal: Signs and Symptoms of Listed Potential Problems Will be Absent, Minimized or Managed (Stroke) Description: Signs and symptoms of listed potential problems will be absent, minimized or managed by discharge/transition of care (reference Stroke (Ischemic) (Adult) CPG). Outcome: Ongoing Report called PACU admission assessment remains unchanged,dressings intact. DIAGNOSTIC CEREBRAL ANGIOGRAM CLINICAL INDICATION: Symptomatic left carotid stenosis PROCEDURE: 3-vessel cerebral angiogram. DURATION OF PROCEDURE: Approximately 45 minutes. OPERATORS: José Preston MD, was the attending physician. He supervised the entire procedure. Felicia Pacheco MD, was the fellow. Dr. Preston ctively participated in catheter manipulation and was present in the room for the entire procedure. VESSELS STUDIED: Right common carotid artery Left common carotid artery Left vertebral artery Right common femoral artery ANESTHESIA: Local in the right groin with bupivacaine. Conscious sedation was given by the nurse under the supervision of the attending anesthesiologist. Pre-, intra-, and post-conscious sedation monitoring records are available in the chart. MEDICATIONS: 0.5% Bupivacaine SQ 10 cc MATERIALS: 5 Indonesian micropuncture kit: Lincoln Mandril wire, 5 Indonesian transitional dilator, 21-gauge needle 0.035 Terumo glidewire guidewire 5 Indonesian Terumo Bryan sheath 5 Indonesian [employer] vertebral catheter 5F Simmons2 catheter Mynx closure device Visipaque-270 contrast material (100 cc) TECHNIQUE: Prior to the procedure, the technical aspects of the procedure, as well as potential risks and benefits, were explained to the patient. Specifically, the risks of cerebral infarction, hemorrhage, blindness, cranial nerve palsy, facial pain, anaphylaxis, renal failure, limb loss, , groin hematoma, arterial dissection, arterial pseudoaneurysm, and arteriovenous fistula were discussed. After informed consent was obtained, the patient was brought to the angiography suite and prepped and draped in the usual fashion. Access to the vascular system was gained in the usual way by a single-wall puncture of the right femoral artery; a 5 Indonesian sheath was introduced into the right femoral artery. Using fluoroscopic guidance, selective catheterization was done of these above mentioned vessels and digital angiograms were performed, centered over the head and neck with AP, lateral and oblique views. The patient was found to have a bovine arch and for cannulation of the right common carotid artery, the Gonzales 2 catheter was utilized. The 5F vert catheter was used to cannulate the left common carotid artery and left vertebral artery. Following completion of the procedure,hemostasis was obtained by the application of a mynx closure device, followed by manual compression. COMPARISON: CTA from outside hospital 11/26/20. FINDINGS: RIGHT COMMON CAROTID ARTERY, CERVICAL: There is atherosclerotic plaque with 60% stenosis of the right internal carotid artery at the level of the bifurcation. There is normal opacification of right ECA branches. RIGHT COMMON CAROTID ARTERY, CEREBRAL: There is normal transit time. There is no evidence of aneurysm, focal stenosis, or early draining vein. Capillary and venous phase imaging is unremarkable. There is normal opacification of right ECA branches. LEFT COMMON CAROTID ARTERY, CERVICAL: There is atherosclerotic plaque of the left internal carotid artery past the bifurcation with approximately 50% stenosis. Within the plaque, there is an aneurysmal dilation of contrast filling within the vessel wall that measures 2.6 x 1.6 mm. There is normal opacification of left ECA branches. LEFT COMMON CAROTID ARTERY, CEREBRAL: There is normal transit time. There is no evidence of aneurysm, focal stenosis, or early draining vein. Capillary and venous phase imaging is unremarkable. There is normal opacification of left ECA branches. LEFT VERTEBRAL ARTERY, CEREBRAL: There is no evidence of aneurysm, focal stenosis, or early draining vein. There was good contrast reflux down the right ertebral artery. Both PICA's demonstrate normal takeoffs from the distal ipsilateral vertebral arteries. RIGHT COMMON FEMORAL ARTERY: The puncture point in the right common femoral artery is acceptable for placement of a closure device. COMPLICATIONS: None immediate. IMPRESSION: There is 60% stenosis of the right internal carotid artery and 50% stenosis of the left carotid artery with an aneurysmal dilation noted within the left internal carotid artery plaque. Associated attestation - José Preston MD - 11/30/2020 9:03 AM EDT Agree with above as written. I was present for the entire procedure. Remberto Ann ([id number]) PRE OPERATIVE DIAGNOSIS Carotid stenosis, symptomatic, with infarction [I63.239] POST OPERATIVE DIAGNOSIS Post-Op Diagnosis Codes: * Carotid stenosis, symptomatic, with infarction [I63.239] PROCEDURE PERFORMED Procedure(s) (LRB): DIAGNOSTIC CEREBRAL ANGIOGRAM (N/A) PRIMARY CLOSURE N/A INTRAOPERATIVE FINDINGS 50% L ICA stenosis with filling defect and pseudoaneurysm; 60% R ICA stenosis SURGEON Surgeon(s) and Role: * José Preston MD - Primary * Felicia Pacheco MD - Fellow ANESTHESIOLOGIST Anesthesiologist: Teja Pedraza MD Cooperer Assisting: Marium Denny MD SURGICAL STAFF Furnace Liner: Lalito Muniz RN; Karli Ventura RN Fish Machine Feeder: Matthew Stapleton; Maria R Rao COMPLICATIONS None ESTIMATED BLOOD LOSS Minimal SPECIMENS No specimen sent * No specimens in log * Felicia Pacheco MD November 27, 2020 8:12 AM Agree with above as written I certify that this patient requires inpatient services at this time. I anticipate the expected length of stay will include at least two midnights. Inpatient services are due to the following medical concerns stroke. Plans for post hospitalization care will be discharge to [facility]. documented in this encounter [facility] History of Present illness Narrative 12-03-2020 Ana María Velez RN - 12/03/2020 9:23 AM Jeffery Alfaro MD - 12/02/2020 1:39 PM VICKEY Alan - 12/01/2020 3:45 PM Demetra Castelan MD - 12/01/2020 11:49 AM EDT Note Date & Type Note Facility 12-03-2020 History of Present illness Narrative Final Discharge Planning and Transportation Final Discharge Planning Discharge Disposition: Home Patient to be discharged home. All follow-up appointments scheduled as documented in AVS. All referral information provided to post-acute providers. Patient and family in agreement with discharge plan. All questions answered. Patient and family deny any additional needs at this time. Plan Discharge home Transportation family to transport the patient home Ana María Townsend RN, BSN Clinical Candle Extrusion Machine Operator NEUROCRITICAL CARE DAILY NOTE HOSPITAL VISIT DEMOGRAPHICS Patient: Remberto Ann Code status: Full Code Admission date: 11/26/2020 11:41 AM Hospital days: LOS: 6 days HISTORY OF PRESENT ILLNESS Remberto Ann is a 70 y.o. male with a past history of Hematuria (negative work up 04/2005), Kidney Stones, Myositis, Former Smoker (quit 07/2004), HLD, Fibromyalgia, Back Pain, and BPH. Mr. Ann initially presented to [facility] after being transferred from an OSH on 11/26 as a Level 2 Stroke alert when he started experiencing acute onset aphasia and difficulty with ambulation. Initial NIHSS on tele stroke was 4, but then increased to 6 on admission for LOC questions, command following, and aphasia. Mr. Ann was outside the TPA window. CTA was obtained which revealed 70% stenosis of the LICA. Mr. Ann was transferred to [facility] for NS evaluation and further management. Mr. Ann was initially admitted to the floor in the [facility], and his aphasia appears to have resolved per chart review on 11/27. He was given a Plavix load (300 mg), and started on ASA and Plavix every day. A DCA was completed per NS on 11/27 with 50% LICA stenosis with filling defect and pseudoaneurysm, and 60% TAMMY Stenosis noted. Plans were made to place a stent Thursday 11/30. Mr. Ann underwent a stent to the LICA, but post-operatively, it was noted that he had worsening aphasia, dizziness, nystagmus with left horizontal gaze, and required low dose levophed for hypotension despite being given a fluid bolus. Mr. Ann was transferred to the NCCU for further care and monitoring. INTERVAL HISTORY SINCE ADMISSION 11/26/2020: admit to the floor 11/26-11/30: being evaluated on the floor 11/30: admit to NCCU d/t hypotension requiring Levo 12/01: Drop BP goal 110-140. Monitor hemodynamic status 12/02: titrated off levophed; ambulating hallways without event PHYSICAL EXAM GENERAL: Alert, no acute distress HEENT: normocephalic, CARDIO: +S1S2, bradycardic, No edema PULM: LCTA throughout rufino, diminished rufino LL. Respirations are easy and unlabored. Equal chest rise. ABDOMINAL: soft, rounded, nontender, nondistended, active bowel sounds : butts draining clear, yellow urine. EXTREMITIES/VASCULAR: +2 distal pulses x4, capillary refill <3 seconds. Rt groin mynx closure. CDI. No hematoma noted. NEURO: Mental status: alert; oriented to person, year, and month when given options; good attention. Said yes when asked if had a stroke. Speech/language: aphasic, comprehension intact; difficulty with object naming Cranial nerves: CN II: Visual valderrama intact to confrontation. PERRL- 3 mm structural ironworker III, IV and : EOMI. Left lateral nystagmus. CN V: Facial sensation intact to light touch. CN VII: Facial strength normal with symmetric movement. CN VIII: Hearing is grossly intact. CN IX and X: Soft palate elevates symmetrically in the midline CN XI: Shoulder shrug and sternocleidomastoid strength 5/5 bilaterally CN XII: Tongue is midline with normal movement; no fasciculations Motor: Normal bulk and tone. LEPE x4 to command. No drift noted. Strength 5/5. Sensation: Extremity sensation intact throughout. 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 CTA ([facility]) - left ICA stenosis. CTP- No mismatch. - No tPA given d/t being outside the window. - 11/27 NSGY consulted for DCA: LICA Stenosis - 50%, filling defect & pseudoaneurysm & TAMMY stenossi - 60%. - Ongoing CVA management: - Neurochecks Q2H - Goal SBP 110-140 (see cards) - Imaging: - 11/28 MRI B: multifocal acute left cerebral infarcts left posterior, temporal, occipital, and parietal lobes. Dominant area of infarct left posterior temporal region, likely involving the Left FIELD TRAINER and LMCA territories. - Daily NIHSS: NIH Stroke Scale: NIH Level of Conciousness (Provider): 0 NIH LOC Questions (Provider): 0 NIH LOC Commands (Provider): 0 NIH Best Gaze (Provider): 0 NIH Visual (Provider): 0 NIH Facial Palsy (Provider): 0 NIH Left Arm Motor (Provider): 0 NIH Right Arm Motor (Provider): 0 NIH Left Leg Motor (Provider): 0 NIH Right Leg Motor (Provider): 0 NIH Limb Ataxia (Provider): 0 NIH Sensory (Provider): 0 NIH Best Language (Provider): 1 NIH Dysarthria (Provider): 0 NIH Extinction and Inattention (Provider): 0 NIH Total Score (Provider): 1 - Cytotoxic Cerebral Edema Management: - Goal Na 135-145 Recent Labs 12/01/20 0010 12/02/20 0106 SODIUM 141 141 OSMOLALITY 295 295 CHLORIDE 108 108 - Stroke etiology presumed to be large?artery atherosclerosis based on the TOAST Criteria. Stroke risk factors include carotoid stenosis and hypercholesterolemia. - Complete TTE (see cards) - Obtain LDL level and statin therapy if indicated (see cards) - Obtain HA1C level (see endo) - Initiate antiplatelet therapy within 48H of admission (see cards) - Initiate VTE prophylaxis immediately if no tPA given or 24H post-thrombectomy if performed (see heme) - Develop therapeutic anticoagulation plan, if indicated based on CVA etiology (see cards) - Consider urine drug screen on admission if no stroke risk factors - Consider hypercoagulability panel 24H-post tPA if no stroke risk factors - Pain/Sedation management - Tylenol 650mg Q4H PRN Psych: No Current Issues Pulm: Hx Smoking - Goal SpO2 >92%; wean FiO2 as tolerated O2 Sat (%): 99 % (12/02 1300) O2 Device: room air (12/02 0700) - [id number], encourage pulmonary toileting Cards: Bradycardia s/p Stent Placement HLD Temp: [98 F (36.7 C)-98.6 F (37 C)] 98 F (36.7 C) Pulse (Heart Rate): [38-50] 43 Resp Rate: [13-36] 20 BP: (83-146)/(44-72) 101/59 O2 Sat (%): [3 %-99 %] 99 % - Goal SBP 110-140, MAP >65 - Home antihypertensives: - none - Levo gtt to meet SBP goal 120-140 - PRN labetalol and hydralazine for SBP >160 - Antiplatelet: - ASA 325 mg every day - Plavix 75 mg every day - 11/28 TTE: EF 55-69% - 11/26 troponin: negative, repeat negative - 11/30 ECG: sinus fátima - Statin Therapy: - 11/27 LDL 82 - Atorvastatin 20 mg at bedtime Renal/: BPH Hematuria Kidney Stones - Fluid Balance: - Goal: euvolemia - butts out - Maintenance: 0.9NS @ 75 mL/hr - Daily Chem 10; - Electrolytes replaced per NCCU protocol Recent Labs 12/01/20 0010 12/02/20 0106 SODIUM 141 141 POTASSIUM 3.9 4.0 CHLORIDE 108 108 CO2 25 26 BUN 13 14 CREATSERUM 0.83 0.90 MAGNESIUM 1.6 2.0 PHOSPHORUS 3.1 3.1 ICA 4.25* 4.57* GI/Nutrition: No Current Issues No results for input(s): ALBUMIN, BILIDIRECT, BILITOTAL, ALKPHOS, ALT, AST, TP, AMYLASE, LIPASE in the last 72 hours. - DIET HEART HEALTHY - 4 GM SODIUM AAT - [place] Swallow Screening Result: passed=cleared for oral intake - Consult nutrition for malnutrition screening - Bowel regimen: - Last Bowel Movement: 11/29/20 - Senna every day - Miralax prn Endo: No Current Issues - Goal blood glucose 140-180 - 11/27 HGA1C: 5.5 - Monitor for need for SSI Recent Labs 11/30/20 2146 12/01/20 0010 12/02/20 0106 GLUCOSE 87 108* 99 ID: No Current Issues Recent Labs 12/01/20 0010 12/02/20 0106 WBC 9.08 7.84 - Temp (24hrs), Av.2 F (36.8 C), Min:98 F (36.7 C), Max:98.6 F (37 C) - PRN Tylenol for T>100.4F - Most recent and positive cultures: Date Collected Source Result Date Finalized 11/26 COVID neg - Antiinfectives: Start Date Antiinfective Coverage Course Length Stop Date Heme/Onc: No Current Issues Recent Labs 11/30/20 0015 12/01/20 0010 12/02/20 0106 WBC -- 9.08 7.84 RBC -- 4.03* 4.07* HGB -- 13.2* 13.2* HCT -- 38.3* 38.6* PLATELET -- 193 186 PT 13.5 -- -- PTT 29.6 -- -- INR 1.0 -- -- - Goal plt >100, INR <1.4, Hgb >7 - OR EBL: minimal Musc: Acute on Chronic Deconditioning Fibromyalgia Hx Myositis - PT/OT consulted and following - Current Activity Order: AAT Social/Dispo: - Code status: Full Code - Primary Emergency Contact: Sulma Ann - Discharge planning per PCRM/SW. ICU Checklist: [ ] CAM-ICU [ ] ICU Diary Updated patient at beside [ ] SAT [ ] SBT [ ] DVT ppx; [ ] SCDs; [x] Lovenox, [ ] heparin [ ] Stress ulcer prophylaxis: not needed Stable to transfer out of nccu; hopefully will be ready for discharge to home tomorrow Staffed with attending, Dr. Denis Alfaro MD Service pager: [phone] 12/02/20 1:39 PM Associated attestation - Charanjit Barrios MD - 12/02/2020 3:14 PM EDT I agree with the note as written above by the fellow. I personally evaluated the data, examined the patient on 12/02/2020 and constructed the management plan with the multidisciplinary team and by signing this note I certify such was performed by me. Weaned levophed. No further neurological changes with blood pressure. Continue ASA and plavix. May transfer to the floor. 12/01/20 1545 Social Work Screenings Screening patient has qualified for Depression Patient appropriate for screening? Yes Depression Screening Over the past two weeks have you been bothered by feeling down, depressed, or hopeless? No Do you have a history of depression? No Interventions Intervention Needed? No With the patient's permission SW spoke in front of the patient's , Marcela. SW provided the patient with a handout regarding Depression After Brain Injury . SW will kiel the consult as completed. Horace SIMPSON, SALESPERSON [employer], [employer]- Weekend Enrollment Manager Neurosurgery Update: Consulted for carotid stent. No additional neurosurgical intervention at this time. - Please have patient follow up with Dr. Preston in 2-4 weeks. - Neurosurgery will sign-off. Please call with questions. Saúl Castelan MD, Neurosurgery NS2 ([phone]) NEUROCRITICAL CARE DAILY NOTE HOSPITAL VISIT DEMOGRAPHICS Patient: Remberto Ann Code status: Full Code Admission date: 11/26/2020 11:41 AM Hospital days: LOS: 5 days HISTORY OF PRESENT ILLNESS Remberto Ann is a 70 y.o. male with a past history of Hematuria (negative work up 04/2005), Kidney Stones, Myositis, Former Smoker (quit 07/2004), HLD, Fibromyalgia, Back Pain, and BPH. Mr. Ann initially presented to [facility] after being transferred from an OSH on 11/26 as a Level 2 Stroke alert when he started experiencing acute onset aphasia and difficulty with ambulation. Initial NIHSS on tele stroke was 4, but then increased to 6 on admission for LOC questions, command following, and aphasia. Mr. Ann was outside the TPA window. CTA was obtained which revealed 70% stenosis of the LICA. Mr. Ann was transferred to [facility] for NS evaluation and further management. Mr. Ann was initially admitted to the floor in the [facility], and his aphasia appears to have resolved per chart review on 11/27. He was given a Plavix load (300 mg), and started on ASA and Plavix every day. A DCA was completed per NS on 11/27 with 50% LICA stenosis with filling defect and pseudoaneurysm, and 60% TAMMY Stenosis noted. Plans were made to place a stent Thursday 11/30. Mr. Ann underwent a stent to the LICA, but post-operatively, it was noted that he had worsening aphasia, dizziness, nystagmus with left horizontal gaze, and required low dose levophed for hypotension despite being given a fluid bolus. Mr. Ann was transferred to the NCCU for further care and monitoring. INTERVAL HISTORY SINCE ADMISSION 11/26/2020: admit to the floor 11/26-11/30: being evaluated on the floor 11/30: admit to NCCU d/t hypotension requiring Levo 12/01: Drop BP goal 110-140. Monitor hemodynamic status PHYSICAL EXAM GENERAL: Alert, no acute distress HEENT: normocephalic, CARDIO: +S1S2, bradycardic, No edema PULM: LCTA throughout rufino, diminished rufino LL. Respirations are easy and unlabored. Equal chest rise. ABDOMINAL: soft, rounded, nontender, nondistended, active bowel sounds : butts draining clear, yellow urine. EXTREMITIES/VASCULAR: +2 distal pulses x4, capillary refill <3 seconds. Rt groin mynx closure. CDI. No hematoma noted. NEURO: Mental status: alert; oriented to person, year, and month when given options; good attention. Said yes when asked if had a stroke. Speech/language: aphasic, comprehension intact; difficulty with object naming Cranial nerves: CN II: Visual valderrama intact to confrontation. PERRL- 3 mm structural ironworker III, IV and : EOMI. Left lateral nystagmus. CN V: Facial sensation intact to light touch. CN VII: Facial strength normal with symmetric movement. CN VIII: Hearing is grossly intact. CN IX and X: Soft palate elevates symmetrically in the midline CN XI: Shoulder shrug and sternocleidomastoid strength 5/5 bilaterally CN XII: Tongue is midline with normal movement; no fasciculations Motor: Normal bulk and tone. LEPE x4 to command. No drift noted. Strength 5/5. Sensation: Extremity sensation intact throughout. 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 CTA ([facility]) - left ICA stenosis. CTP- No mismatch. - No tPA given d/t being outside the window. - 11/27 NSGY consulted for DCA: LICA Stenosis - 50%, filling defect & pseudoaneurysm & TAMMY stenossi - 60%. - Ongoing CVA management: - Neurochecks Q2H - Goal SBP 110-140 (see cards) - Imaging: - 11/28 MRI B: multifocal acute left cerebral infarcts left posterior, temporal, occipital, and parietal lobes. Dominant area of infarct left posterior temporal region, likely involving the Left FIELD TRAINER and LMCA territories. - Daily NIHSS: NIH Stroke Scale: NIH Level of Conciousness (Provider): 0 NIH LOC Questions (Provider): 0 NIH LOC Commands (Provider): 0 NIH Best Gaze (Provider): 0 NIH Visual (Provider): 0 NIH Facial Palsy (Provider): 0 NIH Left Arm Motor (Provider): 0 NIH Right Arm Motor (Provider): 0 NIH Left Leg Motor (Provider): 0 NIH Right Leg Motor (Provider): 0 NIH Limb Ataxia (Provider): 0 NIH Sensory (Provider): 0 NIH Best Language (Provider): 1 NIH Dysarthria (Provider): 0 NIH Extinction and Inattention (Provider): 0 NIH Total Score (Provider): 1 - Cytotoxic Cerebral Edema Management: - Goal Na 135-145 Recent Labs 11/29/20 0107 12/01/20 0010 SODIUM 140 141 OSMOLALITY 294 295 CHLORIDE 107 108 - Stroke etiology presumed to be large?artery atherosclerosis based on the TOAST Criteria. Stroke risk factors include carotoid stenosis and hypercholesterolemia. - Complete TTE (see cards) - Obtain LDL level and statin therapy if indicated (see cards) - Obtain HA1C level (see endo) - Initiate antiplatelet therapy within 48H of admission (see cards) - Initiate VTE prophylaxis immediately if no tPA given or 24H post-thrombectomy if performed (see heme) - Develop therapeutic anticoagulation plan, if indicated based on CVA etiology (see cards) - Consider urine drug screen on admission if no stroke risk factors - Consider hypercoagulability panel 24H-post tPA if no stroke risk factors - Pain/Sedation management - Tylenol 650mg Q4H PRN Psych: No Current Issues Pulm: Hx Smoking - Goal SpO2 >92%; wean FiO2 as tolerated O2 Sat (%): 97 % (12/01 1013) O2 Device: room air (12/01 0800) - [id number], encourage pulmonary toileting Cards: Bradycardia s/p Stent Placement HLD Temp: [97.7 F (36.5 C)-98.2 F (36.8 C)] 98.1 F (36.7 C) Pulse (Heart Rate): [22-66] 44 Resp Rate: [14-53] 22 BP: (89-167)/(50-87) 109/56 Arterial Line (1) BP: (91)/(43) 91/43 O2 Sat (%): [89 %-100 %] 97 % - Goal SBP 110-140, MAP >65 - Home antihypertensives: - none - Levo gtt to meet SBP goal 120-140 - PRN labetalol and hydralazine for SBP >160 - Antiplatelet: - ASA 325 mg every day - Plavix 75 mg every day - 11/28 TTE: EF 55-69% - 11/26 troponin: negative, repeat P - 11/30 ECG: P - Statin Therapy: - 11/27 LDL 82 - Atorvastatin 20 mg at bedtime Renal/: BPH Hematuria Kidney Stones - Fluid Balance: - Goal: euvolemia - Net: P mL/24H, P mL/admission - UOP: P mL/24H - Continue butts (indication: accurate intake and output) - Maintenance: 0.9NS @ 75 mL/hr - Daily Chem 10; - Electrolytes replaced per NCCU protocol Recent Labs 11/29/20 01012/01/20 0010 SODIUM 140 141 POTASSIUM 3.9 3.9 CHLORIDE 107 108 CO2 24 25 BUN 16 13 CREATSERUM 0.90 0.83 MAGNESIUM -- 1.6 PHOSPHORUS -- 3.1 ICA -- 4.25* GI/Nutrition: No Current Issues No results for input(s): ALBUMIN, BILIDIRECT, BILITOTAL, ALKPHOS, ALT, AST, TP, AMYLASE, LIPASE in the last 72 hours. - DIET HEART HEALTHY - 4 GM SODIUM AAT - [place] Swallow Screening Result: passed=cleared for oral intake - Consult nutrition for malnutrition screening - Bowel regimen: - Last Bowel Movement: 11/29/20 - Senna every day - Miralax prn Endo: No Current Issues - Goal blood glucose 140-180 - 11/27 HGA1C: 5.5 - Monitor for need for SSI Recent Labs 11/29/2010611/30/20 2146 12/01/20 0010 GLUCOSE 98 87 108* ID: No Current Issues Recent Labs 11/29/2010612/01/20 0010 WBC 7.64 9.08 - Temp (24hrs), Av F (36.7 C), Min:97.7 F (36.5 C), Max:98.2 F (36.8 C) - PRN Tylenol for T>100.4F - Most recent and positive cultures: Date Collected Source Result Date Finalized 11/26 COVID neg - Antiinfectives: Start Date Antiinfective Coverage Course Length Stop Date Heme/Onc: No Current Issues Recent Labs 11/29/2010611/30/20 0015 12/01/20 0010 WBC 7.64 -- 9.08 RBC 4.44 -- 4.03* HGB 14.3 -- 13.2* HCT 42.5 -- 38.3* PLATELET 174 -- 193 PT -- 13.5 -- PTT -- 29.6 -- INR -- 1.0 -- - Goal plt >100, INR <1.4, Hgb >7 - OR EBL: minimal Musc: Acute on Chronic Deconditioning Fibromyalgia Hx Myositis - PT/OT consulted and following - Current Activity Order: AAT Social/Dispo: - Code status: Full Code - Primary Emergency Contact: Sulma Ann - Discharge planning per PCRM/SW. ICU Checklist: [ ] CAM-ICU [ ] ICU Diary Updated patient at beside [ ] SAT [ ] SBT [ ] DVT ppx; [ ] SCDs; [x] Lovenox, [ ] heparin [ ] Stress ulcer prophylaxis: not needed - Lines/Tubes: Mary: inserted , (indication:) CVC: inserted , (indication:) Butts: inserted , (indication:) Rectal tube: inserted , (indication:) Enteral access: inserted , [ ] gastric; [ ] post-pyloric Staffed with attending, Dr. Denis Maldonado MD Service pager: [phone] 12/01/20 10:43 AM Associated attestation - Charanjit Barrios MD - 12/02/2020 3:13 PM EDT I agree with the note as written above by the resident. I personally evaluated the data, examined the patient on 12/01/2020 and constructed the management plan with the multidisciplinary team and by signing this note I certify such was performed by me. The patient is critically ill due to postprocedural hypotension in the setting of carotid stenting for acute ischemic stroke with associated carotid stenosis requiring close neurological and hemodynamic monitoring and levophed drip for managing his hypotension. He will remain in the NCCU for management. Continue ASA and plavix. Critical care time spent is 33 minutes. NEUROSURGERY POST-OP NOTE: SUBJECTIVE: Complains of dizziness. Moved to icu for levo requirement OBJECTIVE: PE: AOx3, expressive and receptive aphasia present ( states worse than prior aphasia) PERRL, EOMI, FS, TM FCx4 5/5 strength BUE & BLE SILT Dressing in place c/d/i BRIEF A/P: 70 y.o. male 1 Day Post-Op s/p L DOMINGO on 11/30/2020 - nccu mgmt - nsgy will s/o - f/u Mohan in 2-4 wks - cont DAPT Department of Pharmacy Admission Medication Reconciliation Note Patient: Remberto Ann [facility] The patient's allergies were unable to be reviewed at this time, and I have reviewed the patient's home medication list with the following sources [facility] records. I have also reviewed this list with the medical team. All changes to the home medication list have been updated in [facility]. Updated [employer]IST Med List: Prior to Admission Medications Prescriptions atorvastatin 10 MG tablet Sig: Take 10 mg by mouth daily. finasteride 5 MG tablet Sig: Take 5 mg by mouth daily. Facility-Administered Medications: None Added to Home Medications: Medications above Please feel free to contact me with any further questions. Name: Artem Luke RPH Phone #: [phone] Date/Time: 12/01/2020 9:49 AM Time Spent: 5 minutes NEUROCRITICAL CARE DAILY NOTE HOSPITAL VISIT DEMOGRAPHICS Patient: Remberto Ann Code status: Full Code Admission date: 11/26/2020 11:41 AM Hospital days: LOS: 4 days HISTORY OF PRESENT ILLNESS Remberto Ann is a 70 y.o. male with a past history of Hematuria (negative work up 04/2005), Kidney Stones, Myositis, Former Smoker (quit 07/2004), HLD, Fibromyalgia, Back Pain, and BPH. Mr. Ann initially presented to [facility] after being transferred from an OSH on 11/26 as a Level 2 Stroke alert when he started experiencing acute onset aphasia and difficulty with ambulation. Initial NIHSS on tele stroke was 4, but then increased to 6 on admission for LOC questions, command following, and aphasia. Mr. Ann was outside the TPA window. CTA was obtained which revealed 70% stenosis of the LICA. Mr. Ann was transferred to [facility] for NS evaluation and further management. Mr. Ann was initially admitted to the floor in the [facility], and his aphasia appears to have resolved per chart review on 11/27. He was given a Plavix load (300 mg), and started on ASA and Plavix every day. A DCA was completed per NS on 11/27 with 50% LICA stenosis with filling defect and pseudoaneurysm, and 60% TAMMY Stenosis noted. Plans were made to place a stent Thursday 11/30. Mr. Ann underwent a stent to the LICA, but post-operatively, it was noted that he had worsening aphasia, dizziness, nystagmus with left horizontal gaze, and required low dose levophed for hypotension despite being given a fluid bolus. Mr. Ann was transferred to the NCCU for further care and monitoring. INTERVAL HISTORY SINCE ADMISSION 11/26/2020: admit to the floor 11/26-11/30: being evaluated on the floor 11/30: admit to NCCU d/t hypotension requiring Levo PHYSICAL EXAM GENERAL: Alert, no acute distress HEENT: normocephalic, CARDIO: +S1S2, RRR, Tele: S. Brdy- RSR, no edema PULM: LCTA throughout rufino, diminished rufino LL. Respirations are easy and unlabored. Equal chest rise. ABDOMINAL: soft, rounded, nontender, nondistended, active bowel sounds : butts draining clear, yellow urine. EXTREMITIES/VASCULAR: +2 distal pulses x4, capillary refill <3 seconds. Rt groin mynx closure. CDI. No hematoma noted. NEURO: Mental status: alert; oriented to person, year, and month when given options; good attention. Struggled on location. Said yes when asked if had a stroke. Speech/language: fluent; comprehension intact; object naming intact; repetition intact Cranial nerves: CN II: Visual valderrama intact to confrontation. PERRL- 3 mm structural ironworker III, IV and : EOMI. Left lateral nystagmus. CN V: Facial sensation intact to light touch. CN VII: Facial strength normal with symmetric movement. CN VIII: Hearing is grossly intact. CN IX and X: Soft palate elevates symmetrically in the midline CN XI: Shoulder shrug and sternocleidomastoid strength 5/5 bilaterally CN XII: Tongue is midline with normal movement; no fasciculations Motor: Normal bulk and tone. LEPE x4 to command. No drift noted. Strength 5/5. Sensation: Extremity sensation intact throughout. 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 CTA ([facility]) - left ICA stenosis. CTP- No mismatch. - No tPA given d/t being outside the window. - 11/27 NSGY consulted for DCA: LICA Stenosis - 50%, filling defect & pseudoaneurysm & TAMMY stenossi - 60%. - Ongoing CVA management: - Neurochecks Q2H - Goal SBP 120-140 (see cards) - Imaging: - 11/28 MRI B: multifocal acute left cerebral infarcts left posterior, temporal, occipital, and parietal lobes. Dominant area of infarct left posterior temporal region, likely involving the Left FIELD TRAINER and LMCA territories. - Daily NIHSS: NIH Stroke Scale: NIH Level of Conciousness (Provider): 0 NIH LOC Questions (Provider): 0 NIH LOC Commands (Provider): 0 NIH Best Gaze (Provider): 0 NIH Visual (Provider): 0 NIH Facial Palsy (Provider): 0 NIH Left Arm Motor (Provider): 0 NIH Right Arm Motor (Provider): 0 NIH Left Leg Motor (Provider): 0 NIH Right Leg Motor (Provider): 0 NIH Limb Ataxia (Provider): 0 NIH Sensory (Provider): 0 NIH Best Language (Provider): 1 NIH Dysarthria (Provider): 0 NIH Extinction and Inattention (Provider): 0 NIH Total Score (Provider): 1 - Cytotoxic Cerebral Edema Management: - Goal Na 135-145 Recent Labs 11/28/20 0006 11/29/20 0107 SODIUM 139 140 OSMOLALITY 292 294 CHLORIDE 106 107 - Stroke etiology presumed to be large?artery atherosclerosis based on the TOAST Criteria. Stroke risk factors include carotoid stenosis and hypercholesterolemia. - Complete TTE (see cards) - Obtain LDL level and statin therapy if indicated (see cards) - Obtain HA1C level (see endo) - Initiate antiplatelet therapy within 48H of admission (see cards) - Initiate VTE prophylaxis immediately if no tPA given or 24H post-thrombectomy if performed (see heme) - Develop therapeutic anticoagulation plan, if indicated based on CVA etiology (see cards) - Consider urine drug screen on admission if no stroke risk factors - Consider hypercoagulability panel 24H-post tPA if no stroke risk factors - Pain/Sedation management - Tylenol 650mg Q4H PRN Psych: No Current Issues Pulm: Hx Smoking - Goal SpO2 >92%; wean FiO2 as tolerated O2 Sat (%): 96 % (11/30 2209) O2 Device: room air (11/30 2149) - [id number], encourage pulmonary toileting Cards: Bradycardia s/p Stent Placement HLD Temp: [97.7 F (36.5 C)-98.3 F (36.8 C)] 97.7 F (36.5 C) Pulse (Heart Rate): [42-71] 50 Resp Rate: [10-53] 26 BP: (89-152)/(50-74) 107/57 Arterial Line (1) BP: (91)/(43) 91/43 O2 Sat (%): [92 %-98 %] 96 % Weight: [73.3 kg (161 lb 9.6 oz)] 73.3 kg (161 lb 9.6 oz) - Goal SBP 120-140, MAP >65 - Home antihypertensives: - none - Levo gtt to meet SBP goal 120-140 - PRN labetalol and hydralazine for SBP >160 - Antiplatelet: - ASA 325 mg every day - Plavix 75 mg every day - 11/28 TTE: EF 55-69% - 11/26 troponin: negative - 11/30 ECG: P - Statin Therapy: - 11/27 LDL 82 - Atorvastatin 20 mg at bedtime Renal/: BPH Hematuria Kidney Stones - Fluid Balance: - Goal: euvolemia - Net: P mL/24H, P mL/admission - UOP: P mL/24H - Continue butts (indication: accurate intake and output) - Maintenance: 0.9NS @ 75 mL/hr - Daily Chem 10; - Electrolytes replaced per NCCU protocol Recent Labs 11/28/20 0006 11/29/20 0107 SODIUM 139 140 POTASSIUM 4.1 3.9 CHLORIDE 106 107 CO2 25 24 BUN 16 16 CREATSERUM 0.89 0.90 GI/Nutrition: No Current Issues No results for input(s): ALBUMIN, BILIDIRECT, BILITOTAL, ALKPHOS, ALT, AST, TP, AMYLASE, LIPASE in the last 72 hours. - DIET NPO with meds AAT - [place] Swallow Screening Result: passed=cleared for oral intake - Consult nutrition for malnutrition screening - Bowel regimen: - Last Bowel Movement: 11/29/20 - Senna every day - Miralax prn Endo: No Current Issues - Goal blood glucose 140-180 - 11/27 HGA1C: 5.5 - Monitor for need for SSI Recent Labs 11/28/20 0006 11/29/20 010 GLUCOSE 98 98 ID: No Current Issues Recent Labs 11/28/20 0006 11/29/20 0107 WBC 7.96 7.64 - Temp (24hrs), Av F (36.7 C), Min:97.7 F (36.5 C), Max:98.3 F (36.8 C) - PRN Tylenol for T>100.4F - Most recent and positive cultures: Date Collected Source Result Date Finalized 11/26 COVID neg - Antiinfectives: Start Date Antiinfective Coverage Course Length Stop Date Heme/Onc: No Current Issues Recent Labs 11/28/20 0006 11/29/2010611/30/20 0015 WBC 7.96 7.64 -- RBC 4.50 4.44 -- HGB 14.6 14.3 -- HCT 43.5 42.5 -- PLATELET 183 174 -- PT -- -- 13.5 PTT -- -- 29.6 INR -- -- 1.0 - Goal plt >100, INR <1.4, Hgb >7 - OR EBL: minimal Musc: Acute on Chronic Deconditioning Fibromyalgia Hx Myositis - PT/OT consulted and following - Current Activity Order: AAT Social/Dispo: - Code status: Full Code - Primary Emergency Contact: Sulma Ann - Discharge planning per PCRM/KRYSTLE. ICU Checklist: [ ] CAM-ICU [ ] ICU Diary daily update not required as pt not intubated, will continue to monitor for daily need [ ] SAT [ ] SBT [ ] DVT ppx; [ ] SCDs; [x] Lovenox, [ ] heparin [ ] Stress ulcer prophylaxis: not needed - Lines/Tubes: Mathias: inserted , (indication:) CVC: inserted , (indication:) Butts: inserted , (indication:) Rectal tube: inserted , (indication:) Enteral access: inserted , [ ] gastric; [ ] post-pyloric Patient was admitted to NCCU due to hypotension requiring levophed s/p carotid stent placement. Patient remained in the neurosciences critical care unit overnight requiring frequent neuro checks, strict BP control and monitoring, f/u on postop imaging, strict I&Os, pain managment, and monitoring for neurologic decline. I have spent a total of 35 minutes with this patient. BLANQUITA Pruett Service pager: [phone] 11/30/20 10:34 PM NEUROSURGERY POST-OP NOTE: SUBJECTIVE: Complains of dizziness. OBJECTIVE: PE: AOx3, expressive and receptive aphasia present ( states worse than prior aphasia) PERRL, EOMI, FS, TM FCx4 5/5 strength BUE & BLE SILT Dressing in place c/d/i BRIEF A/P: 70 y.o. male Day of Surgery s/p L DOMINGO on 11/30/2020 - SBP refractory to NS bolus. - Start Levophed with BP goals 120-140 NUTRITION RISK SCREENING NOTE Remberto Ann is a 70 y.o. male admitted with no significant history who presented to [facility] on 11/26/2020 after he woke up with aphasia and trouble walking. He was seen on telestroke by Dr. Timmons, NIHSS was 4, not in the tPA window. CTA showed left ICA 70% stenosis so he was transferred for further management. NIHSS on arrival was 6. Pt unavailable and information obtained via chart review ( out of room). Clarity Developer Screening Pt's appetite is fair. Pt with no nausea, vomiting, diarrhea or constipation. Pt with no issues with chewing and/or swallowing. Pt with weight gain of 12# in the past four days. Past History Past medical, surgical, family, and social histories have been reviewed and are located elsewhere in the medical record. Height: 185.4 cm (6' 1 ) Admit wt: 149 IBW: 184 %IBW: 81% (88% currently) BMI: 21.3 Wt Readings from Last 10 Encounters: 11/29/20 73.3 kg (161 lb 9.6 oz) Current Diet Orders Procedures DIET NPO with meds Standing Status: Standing Number of Occurrences: 1 Order Specific Question: NPO Meds: Answer: with meds Food Allergies reviewed:None Cultural or Mormon Restrictions/Preferences: None Skin Garcia Score: 22 Pt does not meet criteria for STAND skin bundle Active Wounds: Sheath Site Assessment (Wound) Right femoral (3) Sheath Site Assessment (Wound) Right femoral (0) Edema: - Summary Pt is at nutrition risk due to the following; inadequate oral intake, admitting dx, advance age. Pt currently has a fair appetite, and has been consuming 58% of all recorded meals since admission. Pt had a 12# weight gain, since admission. Pt was out of room at time of visit, will attempt Ensure Enlive with lunch, until PO improves. I will follow for tolerance to PO and weight changes. Nutrition Plan of Care: 1. Continue current diet order. 2. Will provide Ensure Enlive with lunch Ensure Enlive (350 kcal, 20 g PRO each) once daily with Lunch . 3. Monitor for significant weight changes. 4. Monitor and encourage po intakes with goal of average po being 75%. 5. dental technology advisor to follow. JORDY You Pager:[phone] Occupational Therapy Attempt Note 11/30/2020 10:00 AM OT Therapy Completed: Attempted Attempted Reason: Patient is unavailable due to test/procedure (OR ffor DCA) Elvira Shah OT Time In: 1000 Time Out: 1001 Total Visit Time: 1 minutes Total Treatment Time: 0 minutes Progression of Care Note Expected Discharge Date: 12/01/2020 Medical Milestones Remaining: ICA Stent today Assessment and Discharge Plan as of 11/30/2020 9:19 AM Plan was not discussed with Patient on this date. Anticipated discharge disposition: Home Anticipated Services at Discharge: Outpatient rehab services Barriers to Discharge: Physician Decision Explanation of Barriers: Stent placement today Readmission Risk Score Risk of Readmission: 8 Category Reference: Low: 0% - 16% Medium Low: 17% - 32% Medium High: 33% - 48% High: 49% - 100% Ana María Townsend RN, BSN Clinical Candle Extrusion Machine Operator NEUROSURGERY PROGRESS NOTE: 11/30/20 S: NAEON, no complaints, ready for OR O: PE: NAD AOx3 PERRL EOMI FS TM FCx4 5/5 BUE 5/5 BLE SILT Temp: [97.8 F (36.6 C)-98.3 F (36.8 C)] 97.9 F (36.6 C) Pulse (Heart Rate): [52-65] 52 Resp Rate: [12-20] 20 BP: (118-140)/(57-74) 137/67 O2 Sat (%): [95 %-98 %] 96 % Weight: [73.3 kg (161 lb 9.6 oz)] 73.3 kg (161 lb 9.6 oz) O2 Sat (%): 96 % (11/30 0423) O2 Device: room air (11/30 0716) I/O last 3 completed shifts: In: 560 [P.O.:560] Out: 275 [Urine:275] ICP: No data recorded Ptt/Pt/Inr: 29.6/13.5/1.0 (11/30 0015) A/P: Remberto Ann is a 70 y.o. male w/ L ICA stenosis 70% and aphasia Neuro: - OR today for L DOMINGO Cards: vss Resp: RA ID: afebrile FEN/GI: NPO for OR PPX: SCDs, Pharm DVT ppx lovenox Principal Problem: Carotid stenosis, symptomatic, with infarction Active Problems: Stroke Symptomatic carotid artery stenosis, left Present on Admission: Stroke Carotid stenosis, symptomatic, with infarction Symptomatic carotid artery stenosis, left Images from the original note were not included. Acute Care FULL TIME BABYSITTER Speech/Language/Cognitive Treatment Best mode of Communication: responds to yes/no questions, spoken language (regular speech) Communication Strategies: 1. Provide choices if Remberto Ann is experiencing word retrieval errors 2. Ask yes/no questions 3. Provide repetition of questions/commands and allow extra time for Remberto Ann to process/respond. Discharge Recommendations: Based on the below outcome measures/assessment score(s), and FULL TIME BABYSITTER clinical judgment, discharge destination recommendation is: Deferred to PT/OT recomendations related to mobility Discharge Barriers: Inability to communicate basic wants/needs Supporting factors for discharge setting: Impaired speech and language skills limiting ability to communicate basic wants/needs FULL TIME BABYSITTER Outcomes Tracking Communicate basic wants and needs?: yes Demo insight/appreciation of deficits?: yes Complete basic problem solving?: unable to determine Current therapy frequency recommendation in acute: Speech/Lang/Cog Therapy Frequency: 5 times a week Clinical Impression: Mild-moderate fluent expressive/ receptive aphasia Subjective: Patient seen sitting upright in bed with present in room. Patient alert and agreeable to tx. Pain: Non-verbal indicators of pain not present. Respiratory Status: Room Air O2 Sat (%): 96 % (11/30 1629) O2 Device: room air (11/30 1440) FULL TIME BABYSITTER Care Plan & Goals (Active) FULL TIME BABYSITTER - Language Command Following Description: Patient will complete simple/functional 2-step commands (minimum of x10) to 90% success with max cues as needed in order to improve direction following for functional gains in ability to participate more independently in care. Outcomes Date/Time User Outcome 11/30/201629 LUCRETIA Bravo Ongoing Goal Note filed on 11/30/201629 by LUCRETIA Bravo Patient followed 2-step before/ after directions with 80% accy given max cueing. Patient requires and benefits from both simplification and repetition of directions. Goal not met. Continue goal. Yes/No Response Description: Pt will comprehend/accurately respond to complex yes/no questions with 90% accuracy, given pt requested repetition of the question, to improve auditory comprehension, across 1-2 sessions. Outcomes Date/Time User Outcome 11/30/201629 LUCRETIA Bravo Ongoing Goal Note filed on 11/30/201629 by LUCRETIA Bravo Patient accurately responded to mildly complex yes/ no questions with 75% accy given repetition. Educated patient on utilizing self-advocacy for functional comprehension with staff/ family. Goal progressing, but not met. Continue goal. Word Retrieval Strategies for Naming Description: Patient will recall/implement use of word retrieval strategies, given verbal cues, to complete functional naming tasks and improve verbal expression/word retrieval and ability to verbally express wants/needs, across 2-3 session(s). Outcomes Date/Time User Outcome 11/30/201629 LUCRETIA Bravo Ongoing Goal Note filed on 11/30/201629 by LUCRETIA Bravo Goal not addressed this date. Continue goal. Repetition Description: Pt will complete repetition tasks (functional sentences) with 90% accuracy, given verbal cues, to improve motor planning for speech and verbal expression, across 1-2 sessions. Outcomes Date/Time User Outcome 11/30/201629 LUCRETIA Bravo Ongoing Goal Note filed on 11/30/201629 by LUCRETIA Bravo Goal not addressed this date. Continue goal. Patient Instruction/Education this session: Communication strategies, role of FULL TIME BABYSITTER, POC Plan for next session: Continue current POC I used facemask, protective eye shield, and gloves in today's patient interaction. Speech Language Pathologist: LUCRETIA Bravo Time In: 1150 Time Out: 1205 Total Visit Time: 15 minutes Total Treatment Time: 15 minutes Patient location at end of session: bed with head of bed elevated Upon discontinuation of Acute Care Speech Therapy Services or patient discharge from the hospital this note represents the current Speech Therapy Discharge Summary Acute Care Speech-Language Pathology Note Patient seen for skilled speech therapy intervention. Full note to follow. Patient continues to present with mild-moderate fluent expressive/ receptive aphasia. Patient would continue to benefit from skilled speech therapy to address aphasia. Naida Green M.S., [facility]-FULL TIME BABYSITTER [id number] Admission Screening for Discharge Planning Patient is here for carotid stenosis. After review of chart and discussion with treatment team, Candle Extrusion Machine Operator has not identified needs at this time. Patient is expected to discharge home with supervision from . Should discharge needs arise please place a consult order for case management. Risk of Readmission: 9 Category Reference: Low: 0% - 16% Medium Low: 17% - 32% Medium High: 33% - 48% High: 49% - 100% Ana María Townsend RN, BSN Clinical Candle Extrusion Machine Operator Acute Physical Therapy Evaluation Prior to Admission AMPAC score(s): PRIOR LEVEL AM-PAC Mobility Raw Score: 24 Current AM-PAC score(s): CURRENT AM-PAC Mobility Raw Score: 22 Based on the above AM-PAC score(s) and PT clinical judgment, patient is a good candidate for discharge to Home (Initial supervision from family due to aphasia) Discharge Barriers: Lack of supervision necessary to mitigate fall risk, Cognitive impairments that impact safety (see note below) Mobility equipment available at home: none used ADL equipment available at home: (none) Equipment needed for discharge: none Current therapy frequency recommendation in acute: Therapy Frequency: no therapy warranted Precautions and Weightbearing Status: Patient Safety Communication Prior to Visit: Nursing Existing Precautions/Restrictions: (aphasic) Left Upper Extremity: full weight bearing Right Upper Extremity: full weight bearing Left Lower Extremity: full weight bearing Right Lower Extremity : full weight bearing Subjective: Pt agreeable to therapy. 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 Previous Level of Function Prior level ADL Overview: Independent with all ADLs Bed Mobility/Transfers: independent Ambulation status: WFL Ambulation Skills: independent Assistive Device: none used Level of Ambulation: community Objective/Observation: Vitals/Vitals Responses to Treatment: WNL Cognition Overall Cognitive Status: Impaired Arousal/Alertness: Appropriate responses to stimuli Orientation Level: Oriented X4 Following Commands: Follows one step commands with increased time, Follows one step commands with repetition (no 2-step command following) Safety Judgment: Decreased awareness of need for safety Awareness of Errors: Decreased awareness of errors Deficits: Decreased awareness of deficits Cognition Comments: Receptive and expressive aphasia Vision Screen Currently wearing corrective lenses: Yes, Distance Visual Impairments Observed?: No Speech Speech: word-finding difficulties Hearing Hearing: no gross deficits noted Extremity Assessments: RUE Assessment RUE Assessment: Within Functional Limits LUE Assessment LUE Assessment: Within Functional Limits RLE Assessment RLE Assessment: Within Functional Limits LLE Assessment LLE Assessment: Within Functional Limits Sensation Overall Sensation: Intact Skin Integrity Skin integrity: WFL Mobility Assessment: Supine to Sit Mobility Kerr Level: Supine->Sit: independent Balance: Sitting Balance Static Sitting-Level of Assistance: Independent Dynamic Sitting-Level of Assistance: Independent Standing Balance Static Standing-Level of Assistance: Independent Dynamic Standing-Level of Assistance: Independent Transfer Assessment: Sit to Stand Transfer Kerr Level: Sit->Stand: independent Gait: Gait Assessment Kerr Level: Gait: supervision Gait Distance (feet): 300 Gait Deviations Identified: (impaired way finding) Skilled Intervention/Details - Gait: Supervision assist for impaired way finding Stairs: Supervision assist x4 steps with reciprocal pattern Outcome Score(s): Lantigua Score: 54 10MWT Comfortable Speed Trials Average (sec): 9.25 seconds 10MWT Comfortable 2 Score (m/s): 1.08 m/s CURRENT [facility] Basic Mobility Inpatient Short Form Turning over in bed: 4 - No Assistance Sitting/standing from chair: 4 - No Assistance Moving from lying on back to sittin - No Assistance Moving to and from bed to chair: 4 - No Assistance Walk in hospital room: 3 - A Little Assistance Climbing 3-5 steps with a railin - A Little Assistance CURRENT [facility] Mobility Raw Score: 22 CURRENT [facility] Mobility Functional Limitation/Modifier: 20.91% Currently Impaired in Basic Mobility - CJ Assessment & Plan: Patient was admitted for left ICA stenosis and seen for therapy evaluation related to functional mobility deficits. Exam findings include (receptive and expressive aphasia). These impairments contribute to functional limitations including (way finding). Current clinical presentation is Stable - unchanging or predictable (Low). Patient history factors impacting Plan Of Care include expressive and receptive aphasia. Patient will benefit from skilled physical therapy to address these impairments, functional limitations, and participation restrictions and has excellent rehab potential to achieve therapy goals. Plan for next session: no skilled PT warranted PT Eval Care Plan & Goals (Active) Pt will score >45/56 on the lantigua balance assessment - MET Evaluating Therapist: Yusuf Tellez PT Additional Details: Co-evaluation/co-treatment performed?: No simultaneous treatment performed - I used facemask, protective eye shield, and gloves in today's patient interaction. Evaluation Complexity Components History: Low (No personal factors and/or comorbidities) Body Systems Review: Low (Addressing 1-2 elements) Clinical Presentation: Stable - unchanging or predictable (Low) Clinical Decision Making: Low Time In: 1113 Time Out: 1133 Total Visit Time: 20 minutes Total Treatment Time: 20 minutes Patient location at end of session: chair Alarms on at end of session: none Needs in reach. Upon discontinuation of Acute Care Physical Therapy Services or patient discharge from the hospital this note represents the current Physical Therapy Discharge Summary. ummary: ECHOCARDIOGRAM ATTEMPTED ECHOCARDIOGRAM NOTE: Attempted bedside echocardiogram. Unable to perform bedside echocardiogram at this time. Patient is with OT/PT. Will attempt echocardiogram again as schedule permits. Lalito Valentin RDCS General Machinist [facility] Images from the original note were not included. Acute Care FULL TIME BABYSITTER Speech/Language/Cognitive Evaluation Best mode of Communication: responds to yes/no questions, spoken language (regular speech) Communication Strategies: 1. Provide choices if Remberto Ann is experiencing word retrieval errors 2. Ask yes/no questions 3. Provide repetition of questions/commands and allow extra time for Remberto Ann to process/respond Discharge Recommendations: Based on the below outcome measures/assessment score(s) and FULL TIME BABYSITTER clinical judgment, discharge destination recommendation is: (IPR vs. home with outpatient therapy). At discharge; Remberto Ann would benefit from Continued FULL TIME BABYSITTER treatment services focusing on speech, language, and cognition skills to facilitate improved functional communication and overall safety/independence. Supporting factors for discharge setting: Impaired speech and language skills limiting ability to communicate basic wants/needs FULL TIME BABYSITTER Outcomes Tracking Communicate basic wants and needs?: yes Demo insight/appreciation of deficits?: yes Complete basic problem solving?: unable to determine Current therapy frequency recommendation in acute: Speech/Lang/Cog Therapy Frequency: 5 times a week Clinical Impression: Remberto Ann presents with mild-moderate fluent expressive and receptive aphasia (most consistent with conduction aphasia per WAB-R) in setting of admission with concern for possible stroke (Brain MRI pending at time of this evaluation). Impairments identified impact verbal expression/word retrieval, sentence level repetition, and lengthy/complex auditory comprehension. Unable to evaluate reading comprehension or written expression due to time constraints (neurovascular team arriving to round with pt/ and staff arriving to complete bedside ECHO). Pt's speech intelligibility and vocal quality remain intact. Pt will benefit from speech treatment services as this is a significant change from his baseline per pt/. Patient Instruction/Education this session: FULL TIME BABYSITTER provided education/training to pt/pt's regarding: dx, role of FULL TIME BABYSITTER, rationale for evaluation, and evaluation results revealing aphasia/recommendations. Pt/ stated understanding/agreement. Plan for next session: Initiate tx/address goals set this date to facilitate improved functional communication. Subjective: Pt was awake, alert, pleasant, and cooperative. present. Pain: General Pain Documentation (Adult, OB, Peds) Presence of Pain: denies pain/discomfort Patient History Comments: Per chart: Remberto Ann is a 70 y.o. male with no significant history who presented to [facility] on 11/26/2020 after he woke up with aphasia and trouble walking. He was seen on telestroke by Dr. Timmons, NIHSS was 4, not in the tPA window. CTA showed left ICA 70% stenosis so he was transferred for further management. NIHSS on arrival was 6. NS was consulted for DCA. INTERVAL HISTORY 11/27-DCA today Imaging revealed: Brain MRI 11/28/2020 revealed: IMPRESSION: 1. 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 Most likely, these involve both the left FIELD TRAINER and MCA territories. 2. Of note, the dominant area of completed infarct in the left posterior temporal region, was not detected with Viz CT perfusion analysis. 3. No hemorrhagic transformation or significant intracranial mass effect. 4. Signal changes in the midbrain and fernando extending into the superior cerebellar peduncles, of uncertain etiology, as discussed above. Head CT scan revealed: IMPRESSION: A small area of low attenuation and loss of gomez-white matter differentiation in the left temporo-occipital region (series 3 image 16) may represent a recent infarct. No evidence of acute intracranial hemorrhage or significant mass effect. I personally viewed and interpreted these images and I have reviewed and approved this report. 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 Pt reported being independent and active prior to this admission. IADL History IADLs: independent Primary Language: Estonian Respiratory Status: O2 Sat (%): 95 % (11/28 1512) O2 Device: room air (11/28 1512) EXPRESSIVE LANGUAGE: Impaired Task: Confrontation Naming Impaired Answering 'wh' Questions Impaired Repetition Impaired (Words/phrases: 100% Intact; Sentences: 33%) Verbalize Basic Wants and Needs Intact Functional Participation in Conversation Intact RECEPTIVE LANGUAGE: Impaired Task: Follow 1-Step Commands Intact Follow 2+ Step Commands Impaired (67%) Answers Basic Y/N Questions Intact 90% Answers Complex Y/N Questions Impaired (70%) Conversational Comprehension Impaired READING: Unable to assess (due to time constraints) WRITING: Unable to assess (due to time constraints) SOCIAL INTERACTION/PRAGMATICS: Intact Task: Initiates Conversation Intact Takes Turns in Communication Intact Maintains Eye Contact Intact Maintains Topic Intact Shifts Topics Appropriately Intact Affect Intact Responds Appropriately to Questions Intact COGNITION: Unable to assess due to time constraints. CRANIAL NERVE EXAMINATION: Cranial Nerve Exam Function: Comments CN V (Trigeminal) Motor: Intact Sensory: Intact CN VII (Facial) Motor: Intact Sensory: Not tested CN IX (glossopharyngeal) Motor: Intact Sensory: Not tested CN X (Vagus) Motor: Intact Sensory: Not tested CN XI (Accessory) Motor: Intact CN XII (Hypoglossal) Motor: Intact MOTOR SPEECH TASKS: Intact VOCAL PARAMETERS: Intact FULL TIME BABYSITTER Outcomes: Western Aphasia Battery -Bedside Revised Form: an individually administered assessment for adults with acquired neurological disorders. Assesses the linguistic skills most frequently affected by aphasia, in addition to herrera non-linguistic skills and provides differential diagnosis information. Western Aphasia Battery-Revised (WAB-R) Spontaneous Speech: Content Score: 6 Spontaneous Speech: Fluency Score : 8 Auditory Verbal Comprehension Yes/No Questions Score: 9 Sequential Commands Score: 8 Repetition Score: 5 Object Naming Score: 7 Bedside Aphasia Score (Calculated): 71.67/100 Bedside Aphasia Classification: conduction FULL TIME BABYSITTER Outcomes / Standardized Measures Score The Orientation Log (O-Log) Orientation Log City: correct spontaneously or upon first free recall attempt Kind of Place: correct spontaneously or upon first free recall attempt Name of Hospital: correct upon logical cueing Month: correct spontaneously or upon first free recall attempt Date: correct spontaneously or upon first free recall attempt Year: correct spontaneously or upon first free recall attempt Day of Week: correct spontaneously or upon first free recall attempt Clock Time: correct spontaneously or upon first free recall attempt Etiology / Event: correct upon multiple choice or phonemic cueing Pathology Deficits: correct upon logical cueing Total Score: 26/30 FULL TIME BABYSITTER Care Plan & Goals (Active) FULL TIME BABYSITTER - Language Dates: Start: 11/28/20 Command Following Dates: Start: 11/28/20 Expected End: 12/18/20 Description: Patient will complete simple/functional 2-step commands (minimum of x10) to 90% success with max cues as needed in order to improve direction following for functional gains in ability to participate more independently in care. Yes/No Response Dates: Start: 11/28/20 Expected End: 12/18/20 Description: Pt will comprehend/accurately respond to complex yes/no questions with 90% accuracy, given pt requested repetition of the question, to improve auditory comprehension, across 1-2 sessions. Word Retrieval Strategies for Naming Dates: Start: 11/28/20 Expected End: 12/18/20 Description: Patient will recall/implement use of word retrieval strategies, given verbal cues, to complete functional naming tasks and improve verbal expression/word retrieval and ability to verbally express wants/needs, across 2-3 session(s). Repetition Dates: Start: 11/28/20 Expected End: 12/18/20 Description: Pt will complete repetition tasks (functional sentences) with 90% accuracy, given verbal cues, to improve motor planning for speech and verbal expression, across 1-2 sessions. I used facemask, protective eye shield, and gloves in today's patient interaction. Speech Language Pathologist: Naida Mayo M.A. CCC-FULL TIME BABYSITTER; CBIS License # [id number] Pager #[phone] Available via [employer] Thursday-Thursday:00-:30 Time In: 0948 Time Out: 1026 Total Visit Time: 38 minutes Total Treatment Time: 38 minutes Patient location at end of session: bed with head of bed elevated Alarms on at end of session: Alarms were not adjusted on or off during this session and remained on settings prior to FULL TIME BABYSITTER arriving in pt's room. Needs in reach: Yes Upon discontinuation of Acute Care Speech Therapy Services or patient discharge from the hospital this note represents the current Speech Therapy Discharge Summary Acute Care Speech-Language Pathology Note Received consult for swallow evaluation. However, pt passed [place] Swallow Screening by nursing. Swallow eval by FULL TIME BABYSITTER will not be completed at this time unless this service notified of change in status or re-consult for swallow eval placed. FULL TIME BABYSITTER to proceed with speech/language/cognitive evaluation per order. Thank you. No charge Naida Mayo M.A. RIDGE-FULL TIME BABYSITTER; CBIS License # [id number] Pager #[phone] Available via [employer] Thursday-Thursday:-: Images from the original note were not included. Acute Occupational Therapy Evaluation Prior to Admission AM-PAC Score: PRIOR LEVEL AM-PAC Activity Raw Score: 24 PRIOR LEVEL AM-PAC Mobility Raw Score: 24 Current AM-PAC score(s): CURRENT AM-PAC Mobility Raw Score: 22 CURRENT AM-PAC Activity Raw Score: 24 Based on the above AM-PAC score(s) and OT clinical judgment, discharge destination recommendation is: Home with Outpatient Rehab Services Discharge Barriers: Patient needs assistance with IADLs (see note below) Mobility equipment available at home: none used ADL equipment available at home: (none) Equipment recommendations for discharge: (None ) Current therapy frequency recommendation(s) in acute: 2 times a week Precautions and Weightbearing Status: Patient Safety Communication Prior to Visit: Nursing Existing Precautions/Restrictions: (aphasic) Left Upper Extremity: full weight bearing Right Upper Extremity: full weight bearing Left Lower Extremity: full weight bearing Right Lower Extremity : full weight bearing Subjective: Pt up in chair with bright affect. Agreeable to OT assessment 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 Previous Level of Function Prior level ADL Overview: Independent with all ADLs Bed Mobility/Transfers: independent Ambulation status: WFL Ambulation Skills: independent Assistive Device: none used Level of Ambulation: community IADL History IADLs: independent Primary Language: Estonian Homemaking Responsibilities: (yes) IADL Comments: 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 Vision Screen Currently wearing corrective lenses: Yes, Distance Visual Impairments Observed?: No Speech Speech: word-finding difficulties Hearing Hearing: hearing aids, decreased left, decreased right Cognition Overall Cognitive Status: Impaired Arousal/Alertness: Appropriate responses to stimuli Orientation Level: Oriented X4 Following Commands: Follows one step commands with increased time, Follows one step commands with repetition Safety Judgment: Decreased awareness of need for safety Awareness of Errors: Decreased awareness of errors Deficits: Decreased awareness of deficits Attention Span: Difficulty dividing attention Problem Solving: (able to identify errors) Cognition Comments: Pt with fair auditory processing and expressive deficits ADLs: ADL Assessment: Independent with all ADLs Eating Assistance: Independent Grooming Assistance: Independent Bathing Assistance: Not performed UE Dressing Assistance: Independent LE Dressing Assistance: Independent Toilet Assistance: Independent Extremity Assessments: RUE Assessment RUE Assessment: AROM WFL, Strength WFL LUE Assessment LUE Assessment: AROM WFL, Strength WFL Balance: Sitting Balance Static Sitting-Level of Assistance: Independent Dynamic Sitting-Level of Assistance: Independent Standing Balance Static Standing-Level of Assistance: Independent Dynamic Standing-Level of Assistance: Independent Neuro: Sensation Overall Sensation: Intact Proprioception Proprioception: intact Gross Coordination Gross Coordination: bilat UE intact Fine Motor Coordination Additional Documentation: (WNL manipulation skills) Skin and Edema: Edema Edema: none noted Mobility Assessment: Supine to Sit Mobility Kerr Level: Supine->Sit: independent Transfer Assessment: Sit to Stand Transfer Kerr Level: Sit->Stand: independent Bed-Chair Transfer Kerr Level: Bed<->Chair: independent Toilet Transfer Kerr Level: Toilet: independent Functional Mobility: Gait Assessment Kerr Level: Gait: supervision Gait Distance (feet): (House hold distance ) Skilled Intervention/Details - Gait: repetitions of instructions during topographical orientation due to aphasia Outcome Score(s): CURRENT [facility] Daily Activity Inpatient Short Form Putting on/Taking Off Lower Body Clothin - No Assistance Bathin - No Assistance Toiletin - No Assistance Putting on/Taking Off Upper Body Clothin - No Assistance Groomin - No Assistance Eatin - No Assistance CURRENT -[facility] Activity Raw Score: 24 CURRENT AM-[facility] Activity Functional Limitation/Modifier: 0.00% Currently Impaired in Daily Activity - Interventions: Pt educated on safety for safe hoe discharge due to aphasia Assessment & Plan: Remberto Ann is a 70 y.o. male with PMHx HLD, fibromyalgia, back pain, BPH who presents to the ED from [facility] with as a Level 2 stroke. Patient was admitted for CL ICA stenosis and seen for therapy evaluation related to AD performance, balance and mobility deficits Exam findings include cognitive impairments (Aphasia). These impairments contribute to occupational performance limitations including work/school integration, community integration, driving/transportation. The following factors impact the plan of care: None Patient will benefit from skilled occupational therapy to address these impairments, occupational performance limitations, and participation restrictions. Patient's rehab potential is: excellent. Planned Therapy Interventions (OT Eval): IADL retraining, cognitive training Patient Instruction/Education this session: Patient Instruction: safety with IADLs Plan for next session: OT to follow and address IADL's with focus on safety/processing OT Care Plan & Goals (Active) OT - Cognition Dates: Start: 11/28/20 Cognition Home Maintenance Dates: Start: 11/28/20 Expected End: 12/01/20 Description: Pt will complete simulated home maintenance task (medication management, finance management, etc.) with supervision to promote safety and success at discharge destination. OT - Other Dates: Start: 11/28/20 Precaution Adherence Dates: Start: 11/28/20 Expected End: 12/01/20 Description: Pt will demonstrate 100% safety awareness/precautions during all IADLs and simulated equipment management to promote safety and independence Evaluating Therapist: Elvira Shah OT Additional Details: Co-evaluation/co-treatment performed?: No simultaneous treatment performed I used gloves and facemask in today's patient interaction. OT Evaluation Complexity Occupational Profile and Client History: Low - brief history Assessment of Occupational Performance: Low (1-3 performance deficits) Clinical Decision/Performance Deficits: Low (problem-focused assessments w/limited treatment options) Time In: 0900 Time Out: 0925 Total Visit Time: 25 minutes Total Treatment Time: 25 minutes Patient location at end of session: bed with head of bed elevated Alarms on at end of session: none Needs in reach. Upon discontinuation of Acute Care Occupational Therapy Services or patient discharge from the hospital this note represents the current Occupational Therapy Discharge Summary. Occupational Therapy Attempt Note 11/27/2020 12:57 PM OT Therapy Completed: Attempted Attempted Reason: Patient is on strict bedrest post DCA Elvira Shah OT Time In: 1255 Time Out: 1256 Total Visit Time: 1 minutes Total Treatment Time: 0 minutes Physical Therapy Attempt Note 11/27/2020 12:31 PM PT Therapy Completed: Attempted Attempted Reason: Patient is on strict bedrest Pt s/p DCA and currently on bedrest. Yusuf Tellez PT Time In: 1230 Time Out: 1230 Total Visit Time: 0 minutes Total Treatment Time: 0 minutes Occupational Therapy Attempt Note 11/27/2020 10:14 AM OT Therapy Completed: Attempted Attempted Reason: Patient is unavailable due to test/procedure (off unit at OR) Elvira Shah OT Time In: 1013 Time Out: 1014 Total Visit Time: 1 minutes Total Treatment Time: 0 minutes documented in this encounter [facility] Clinical Note 12-01-2020 Note Date & Type Note Facility 12-01-2020 Note Acute Coronary Syndr ome (ACS): Initial Evaluation and Management: [email or web address] [facility] Nurse Note 11-30-2020 Silvino Rosario RN - 11/30/2020 12:05 PM EDTDacharly Muniz RN - 11/27/2020 8:03 AM EDT Note Date & Type Note Facility 11-30-2020 Nurse Note 1205 - Report given to Bettye PALENCIA on [facility]. There have been no changes from pt assessment charted on PACU arrival. Pt will be transported back to room 1062 on monitor with RN at bedside. is waiting in pt room. Report called to PACU documented in this encounter [facility] Hospital Discharge instructions 11-29-2020 MedicationsDischarge Instr - ActivityDischarge Instr - DietDischarge Instr - NotifyDischarge Instr - DMEAdditional Instructions Note Date & Type Note Facility 11-29-2020 Hospital Discharg e instructions Maria R Krishnamurthy APRN-JIE - 11/29/2020 9:09 AM EDT Know your medicines Make sure you know why you are taking each medicine. Make a master list of all your medicines. Write down the medicine names and doctors' names. Include doses and side effects too. And write down why you take each medicine. Include all prescription and gnre-[id number] medicines, vitamins, and supplements. Keep this list up to date. Take a copy to each doctor visit. Know when you will run out of each medicine. Ask your pharmacist if there are ways the drugstore can remind you to refill your medicines so you do not run out. Write refill reminders on your calendar. Don't wait until you have a few pills left. 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 This can mean fewer trips to the drugstore. If we have prescribed you a new medication during your stay, please contact with your primary physician for refills BLANQUITA Cash - 11/29/2020 9:09 AM EDT Activity -- Please follow these instructions: -Advance your activity as you can tolerate - You may walk all you want. You may go up and down the steps. Use the railing for support - It is normal for your energy level and sleep patterns to change after a stroke - Take rest periods during the day as needed - Complete recovery may take several weeks, months, up to a year. Patience is herrera. BLANQUITA Cash - 11/29/2020 9:09 AM EDT Current Diet Orders Procedures DIET REGULAR Standing Status: Standing Number of Occurrences: 1 DIET NPO with meds Standing Status: Standing Number of Occurrences: 1 Order Specific Question: NPO Meds: Answer: with meds IAT BLANQUITA Cash - 11/29/2020 9:09 AM EDT Notify Your Doctor if you have any of the following: NEUROLOGICAL CHANGES-- Change in alertness Increased sleepiness Nausea and vomiting New onset of numbness or weakness in arms or legs New problems with your bowels or bladder New or worse problems with balance or walking Seizures, new or worsening UNRELIEVED HEADACHE PAIN-- New or increased pain unrelieved with pain medications Pain associated with nausea and vomiting Pain associated with other symptoms QUESTIONS OR PROBLEMS-- Any questions or problems that you are unsure about Deep Vein Thrombosis Symptoms Call your doctor or nurse right away if you have any signs of blood clots such as -Tender, swollen or reddened areas anywhere in your leg. -Numbness or tingling in your lower leg or calf, or at the top of your leg or groin -Skin on you leg looks pale or blue or feels cold to touch -Chest pain or have trouble breathing -Fever or chills BLANQUITA Cadena - 11/29/2020 1:17 PM EDT You underwent a Carotid stent placement under the care of Dr. Preston for treatment of high grade Carotid stenosis, symptomatic, with infarction Neurosurgery Contacts: MD Kiel Lubin CNP Amy Kull, RN Phone number: [phone] Hours to reach your Neurosurgeons office: You may call your neurosurgeon s office if you have questions. The outpatient nurse may also be available to answer questions at that time. If you reach our answering service please leave a message and someone will return your call. Protect Your Device A stent is like a wire cage that holds the blood vessel open. You have stent(s) placed in the blood vessel(s) of your Neck: Your stent type(s): Your stent was placed by Dr. José Preston on . MRI compatibility: Your implanted device(s) have been shown to be MRI safe at field strengths of 3.0 Susana or less, and a maximum whole body averaged specific absorption rate (ISRAEL) of 2.0W/kg for 15 minutes of MRI exposure. Medicines to prevent clotting of the stent Check with our office before you stop taking your antiplatelet medicine or aspirin. You may bruise or bleed easily being on these medications. If you cut yourself, it may take extra time for the bleeding to stop. Apply steady pressure to any bleeding and reinforce dressings. If you cannot control the bleeding, report to the local emergency room. If you notice any black or bloody stools, please contact our office. Antiplatelet medicines prevent platelets in the blood from clumping or clotting to block the stent. These medicines include: Clopidogrel, brand name Plavix The amount of time you are on this medicine will depend on your stent and your condition. Plan on continuing this medication for at least 3-6 months. Aspirin helps to keep your blood from clotting. For the first 3-6 months, you will take 325 mg daily. You need to take aspirin for the rest of your life to protect your stent from clotting. We will discuss lowering to 81 mg after your first post-treatment angiogram. Risk of bleeding or clotting of stent You were started on the medications above for stent protection. You should plan on remaining on BOTH of these medications until told to stop by your doctor. We will discuss the length of treatment at your follow-up appointment. Until then, if you are told to stop your medicine for any reason, please contact our office immediately at [phone]. Stopping your Aspirin or clopidogrel too soon puts your stent at risk for occlusion or clot formation. Check with our office before you stop taking your antiplatelet medicine or aspirin. Taking these medicines to protect your stent from clotting puts you at risk for more bleeding if you have a cut or surgery. But not taking these medicines puts you at risk for your stent to clot and block blood flow which could cause serious injury or . Protect yourself If you have bleeding that you cannot control or that is severe, call our office ([phone]) or go to the nearest emergency room. If you notice new black or bloody stools, please contact our office to have this evaluated. This could be a sign of some gastrointestinal bleeding. Know where your stent or stents are in your body and what medicines you are taking. Carry a card in your wallet or purse that has the information written down so you have it with you. Be sure to tell all of your doctors, including your eye doctor and dentist, that you have a stent. Also tell them you are taking antiplatelet medicine or aspirin. Antiplatelet therapy should not be stopped if you have a newly-placed stent (less than 6 months), unless discussed with the Dr that placed your stent. Maria R Field APRN-CNP - 11/29/2020 Please take these discharge instructions to your primary care doctor follow appointment to show them,keep them for your reference and refer to them often for follow up appointments.It is best to write your appointments on a personal calendar so you do not miss them,call if you need to change any appointments please. Education: What are the most common symptoms of stroke? The following are the most common symptoms of stroke. However, each individual may experience symptoms differently. If any of these symptoms are present, call 911 (or your local ambulance service) immediately. Treatment is most effective when started immediately. Symptoms may be sudden and include: -Weakness or numbness of the face, arm, or leg, especially on one side of the body -Confusion or difficulty speaking or understanding -Problems with vision such as dimness or loss of vision in one or both eyes -Dizziness or problems with balance or coordination -Problems with movement or walking -Severe headaches with no other known cause, especially if sudden onset All of the above warning signs may not occur with each stroke. Do not ignore any of the warning signs, even if they go away - take action immediately. The symptoms of stroke may resemble other medical conditions or problems. Always consult your physician for a diagnosis We have provided both written and verbal education to the patient and family regarding ischemic and hemorrhagic strokes. We have discussed the warning signs/symptoms as well as causes of stroke. We have discussed the importance of activating 911/EMS in the event of these symptoms. We have reviewed the patient's personal risk factors as well as education on reducing these risk factors. [facility] Personalized Stroke Treatment Plan My Stroke Type: [x] Ischemic Stroke (Blockage of blood flow to the brain) [] Hemorrhagic Stroke (Bleeding in the brain) [] TIA- Transient Ischemic Attack (mini-stroke) My Risk Factors Include: [] High Blood Pressure [] Diabetes [x] High Cholesterol [] Heart Disease [] Atrial Fibrillation (Irregular Heart Rate) [] Smoking [] Obesity [] Clotting Disorder [] Alcohol Abuse [] Drug Abuse [] Prior History [] Family History [] Obstructive Sleep Apnea My Follow-Up Treatment Goals: [] Blood Pressure < 120/80 [] Stop Smoking Immediately [] LDL < 70 with CV Disease or <100 without [] HgA1C levels <7% [] Decrease BMI to <25 [x] Take all ordered medications [] Avoid non-prescription or over the counter medication not cleared by your physician [x] Limit Alcohol use to no more than 1 drink per day for females and 2 drinks per day for males [] Do not drive until cleared [x] Follow up with PCP within a week of discharge to home [x] Follow-up with Neurovascular [x] Follow-up with Occupational,physical and speech therapy if ordered [x] Watch out for depression and seek treatment if needed CONTACTS FOR NEUROVASCULAR SERVICE: - You may call your neurovascular doctors office at [phone], if you have questions between 8:30 am and 4:30 pm. - For off hours or the weekend you may call the office or the hospital ham rolling machine operator at and ask for the stroke resident palaeontologist to be paged. - If you have any questions or needs, please call Carmen Og RN, stroke mastercam programmer at [phone] Mon-Fri from 10-13 ? Any questions concerning your discharge instructions please call Case Management Office [phone] Patient Stroke Resources: OS Stroke Support The [facility] Stroke Support Group is for stroke survivors, friends, and family members. Meets every Thursday from 12:00PM to 1:00PM at [facility] ([facility] [address] [place] [address] Amanda Lai, at [phone]. If you are outside of the [facility], contact The [place] [employer] at www.strokeassociation.org or 7-824-0-stroke, or for supports groups in your area. Also refer to the Stroke Education booklet you received as part of your stroke education while you were a patient for additional resources Additional Contacts: Evening and Weekend Contacts If you have questions or concerns during evening, weekend, or holiday hours, please call: -[facility] and Migel Conley ham rolling machine operator at [phone]. -[facility] ham rolling machine operator at [phone] Ask the ham rolling machine operator to page the on-call doctor for Neurovascular service, they were responsible for your care while you were in the hospital. If you having an emergency, call 911. *In the event of an Emergency: If you have a physical or psychiatric emergency call 911 or go to your local emergency department. You should also call your outpatient provider's emergency number. Other reference numbers: [facility] Intake Office at 682-911-8134; [employer] at 743-068-1744; or Suicide Prevention Hotline at 213-329-1174. *Helpful phone numbers: Free Crisis Hotline: 5-910-832-TALK ( ) Suicide Hotline: 446.372.8356 Seniors Suicide Hotline: 710.458.6094 [facility] Youth: [phone] Mental [facility]: [phone] (free counseling) [employer] Access Hotline: 860-627-LEUL (390-441-8134) 24-hour crisis text hotline: Text the word 4hope to 736-434 for crisis support. Texting this number is free if you have Verizon, T-Mobile, AT&T or Sprint. [facility] Financial Assistance: If you want to learn more about these programs, please call .There are three programs to help you with the cost of your medical care: Medicaid, Hospital Care Assurance Program (HCAP) & willam If you are without Insurance and believe you may qualify for Medicaid/public assistance: The [facility] Department of Job and Family Services can now process husain (TANF), food (SNAP) and Medicaid Applications over the phone. Please call [phone] ([phone]) and apply over the phone or apply online at www.benefits.[place].gov. Thursday-Thursday 8am-12pm noon. Medication Assistance Programs [employer]) Club members can buy 100+ common prescriptions for FREE, $3 or $6. Annual membership is $36 for individuals and $72 for families (up to 6 people, including pets). Sign up online or enroll at your nearest pharmacy! -[employer], web site can provide a significant number of coupons for medications at a much lower armendariz. documented in this encounter [facility] Consult note 11-26-2020 Saúl Castelan MD - 11/26/2020 4:45 PM BLANQUITA Pinedo - 11/26/2020 11:40 AM EDT Note Date & Type Note Facility 11-26-2020 Consult note Associated Order(s): IP CONSULT TO SURGERY - NEURO Neurosurgery Consult Note Reason for Consultation: symptomatic L ICA stenosis 70% Chief Complaint: aphasia and gait disturbance HPI Mr. Remberto Ann is a 70 y.o. male w/ no pmh p/w wake up aphasia and gait disturbance 2/2 dizziness to OSH. CTA showed L ICA stenosis 70% and pt was transferred here. Pt denies numbness, weakness, paresthesias, change in vision, difficulty swallowing, change in bowel/bladder habits, or other focal neurologic deficits. He takes no anticoagulants or antiplatelet agents. ROS: All other systems are negative except as mentioned in HPI Past Medical History: Diagnosis Date Fibromyalgia HLD (hyperlipidemia) No past surgical history on file. History reviewed. No pertinent family history. Social History Tobacco Use Smoking status: Current Every Day Smoker Packs/day: 0.50 Types: Cigarettes Smokeless tobacco: Never Used Substance Use Topics Alcohol use: Yes Alcohol/week: 1.0 standard drink Types: 1 Cans of beer per week Drug use: Never Allergies No Known Allergies Infusions Scheduled Meds [START ON 11/27/2020] aspirin 81 mg Oral Daily Or [START ON 11/27/2020] aspirin 300 mg Rectal Daily docusate 100 mg Oral BID Or docusate 100 mg Per NG tube BID enoxaparin 40 mg Subcutaneous QAM senna 8.6 mg Oral QAM Or senna 8.6 mg Per NG tube QAM PRN Meds: docusate OR docusate, labetalol Home Meds Prior to Admission medications Not on File Vitals Temp: [98 F (36.7 C)] 98 F (36.7 C) Pulse (Heart Rate): [52-72] 59 Resp Rate: [15-23] 19 BP: (130-194)/(70-89) 141/78 O2 Sat (%): [93 %-97 %] 93 % Physical General: NAD Cards: no obvious JVD Resp: no stridor or retractions Abd: soft NTND Ext: no edema Mental Status: Awake, alert, oriented x3. Cooperative, follows commands. Aphasia. Cranial Nerves: PERRL, EOMI bilaterally. Facial sensation intact in all 3 branches. Facial movement intact and symmetric. SCM/Trap strength 5/5 bilaterally. Tongue is midline. Motor Function: SA EF EE WF WE FG DI HF KF KE PF DF Right 5 5 5 5 5 5 5 5 5 5 5 5 Left 5 5 5 5 5 5 5 5 5 5 5 5 Sensory Function: Sensation is intact to light touch and painful stimulation throughout. Coordination: Eogjjz-pp-buns intact bilaterally. Labs WBC/Hgb/Hct/Plts: 7.53/15.3/46.5/192 (11/26 114) Na/K+/Phos/Mg/Ca: 138/4.6/2.9/2.0/9.1 (11/26 114) Bun/Creat/Cl/CO2/Glucose: 15/0.96/106/28/98 (11/26 114) Recent Labs 11/26/20 1144 PT 13.2 INR 1.0 Imaging: CT CEREBRAL PERFUSION ANALYSIS Preliminary Result IMPRESSION: Small area of delayed perfusion in the left temporo-occipital region. Although the automated Viz software did not find an infarct core or region of delayed perfusion, this small region may represent tissue at risk based on visual inspection of the parametric maps. CT STROKE HEAD-STROKE ALERT ONLY Preliminary Result IMPRESSION: A small area of low attenuation and loss of gomez-white matter differentiation in the left temporo-occipital region (series 3 image 16) may represent a recent infarct. No evidence of acute intracranial hemorrhage or significant mass effect. CARDIOGRAM (Results Pending) MRI BRAIN WITHOUT CONTRAST (Results Pending) A/P: Remberto Ann is a 70 y.o. male w/ L ICA stenosis 70% and aphasia -DCA tomorrow 11/27 Staff: Mohan Covering: NS2 ([id number]) ## neurosurgery coverage changes at 0530/1730; if 0530 or 1730 has passed since original consult note placed, please page covering pager above ## Associated attestation - José Preston MD - 11/30/2020 10:10 AM EDT I, José Preston MD., saw and evaluated the patient. Case was discussed with the Housestaff. I personally performed the herrera portions of the history and the physical examination and I agree with the findings, assessment and plan. I edited the documentation as necessary. Remberto Ann is a 70 y.o. male w/ L ICA stenosis 70% and aphasia -DCA tomorrow 11/27 Thank you for allowing me to participate in the care of this patient. Neurovascular Evaluation Note: Evaluation Date: 11/26/2020 Unit: E037/E037 Consultation was requested by Dr. Alyssa Lee MD Patient status: Inpatient Length of stay: 0 days Reason for Consult/Chief Complaint: Aphasia and trouble walking History of Present Illness Remberto Ann is a 70 y.o. male with no significant history who presented to [facility] on 11/26/2020 after he woke up with aphasia and trouble walking. He was seen on telestroke by Dr. Timmons, NIHSS was 4, not in the tPA window. CTA showed left ICA 70% stenosis so he was transferred for further management. NIHSS on arrival was 6. A stroke alert was called for STAT consultation. Arrival Time of Stroke Team : 1130 Time of symptom onset: less than 24 hours Patient Location - Onset of Symptoms: Not in a healthcare setting Patient first presented to an [facility] ED facility: no Last Known Well: Date: 11/25/20 Last Known Well: Time: 1900 Source of information: Outside facility medical record Home antiplatelet/anticoagulation therapy: Antiplatelet therapy: none Anticoagulation: none. Patient Current Risk Factors: Stroke risk factors include none. Prior stroke history: no. Family Hx of Stroke: Parents: not known Siblings: not known Stroke Diagnostic/Treatment Eligibility Information: Time Based tPA Eligibility for IV Treatment 1. Last known well: No Stroke Clinical Assessment Information: NIHSS (Provider) First Filed Value Provider NIH Stroke Scale NIH Interval (Provider) admission filed on 11/26/2020 1140 NIH Level of Conciousness (Provider) 0 filed on 11/26/2020 1140 NIH LOC Questions (Provider) 2 filed on 11/26/2020 1140 NIH LOC Commands (Provider) 2 filed on 11/26/2020 1140 NIH Best Gaze (Provider) 0 filed on 11/26/2020 1140 NIH Visual (Provider) 0 filed on 11/26/2020 1140 NIH Facial Palsy (Provider) 0 filed on 11/26/2020 1140 NIH Left Arm Motor (Provider) 0 filed on 11/26/2020 1140 NIH Right Arm Motor (Provider) 0 filed on 11/26/2020 1140 NIH Left Leg Motor (Provider) 0 filed on 11/26/2020 1140 NIH Right Leg Motor (Provider) 0 filed on 11/26/2020 1140 NIH Limb Ataxia (Provider) 0 filed on 11/26/2020 1140 NIH Sensory (Provider) 0 filed on 11/26/2020 1140 NIH Best Language (Provider) 2 filed on 11/26/2020 1140 NIH Dysarthria (Provider) 0 filed on 11/26/2020 1140 NIH Extinction and Inattention (Provider) 0 filed on 11/26/2020 1140 NIH Total Score (Provider) 6 filed on 11/26/2020 1140 Is NIH=0 Within 180 min of Last Known Well Time? Stroke Scales Most Recent Value Modified Dickey Scale Score Premorbid (MRSS) 0 filed on 11/26/2020 1145 NIH Total Score (Provider) 6 filed on 11/26/2020 1140 Medical History: Past Medical History: Diagnosis Date Fibromyalgia HLD (hyperlipidemia) SURGICAL HISTORY: No past surgical history on file. SOCIAL HISTORY: Social History Tobacco Use Smoking status: Current Every Day Smoker Packs/day: 0.50 Types: Cigarettes Smokeless tobacco: Never Used Substance Use Topics Alcohol use: Yes Alcohol/week: 1.0 standard drink Types: 1 Cans of beer per week Drug use: Never ALLERGIES: No Known Allergies PRIOR TO ARRIVAL MEDS: Prior to Admission medications Not on File Review of Systems: Review of systems not obtained due to aphasia. Current Meds: Current Facility Administered Meds: Current Facility-Administered Medications Medication Dose Route Frequency Provider Last Rate Last Admin lidocaine 1% (PF) (XYLOCAINE MPF) 1 % injection 0.3 mL 0.3 mL Infiltration Once PRN Smitha Gomes MD No current outpatient medications on file. Scheduled Meds: Continuous Infusions: PRN Meds:lidocaine 1% (PF) Objective Findings: Vital Signs (24hrs): Temp: [98 F (36.7 C)] 98 F (36.7 C) Pulse (Heart Rate): [71-72] 71 Resp Rate: [18-20] 18 BP: (190-194)/(84-89) 190/89 O2 Sat (%): [95 %-97 %] 95 % There is no height or weight on file to calculate BMI. Lines/Drains/Airways/Wounds: Patient Lines/Drains/Airways Status Active Lines, Drains, Airways, & Wound Overview Name Placement date Placement time Site Days Peripheral IV Line - Single Lumen 11/26/20 1135 median cubital vein (antecubital fossa), right 20 gauge 11/26/20 1135 less than 1 Peripheral IV Line - Single Lumen 11/26/20 1145 median cubital vein (antecubital fossa), left 20 gauge 11/26/20 1145 less than 1 Peripheral IV Line - Single Lumen 11/26/20 1147 median cubital vein (antecubital fossa), right 18 gauge 11/26/20 1147 less than 1 General: Laying comfortably in bed; in no acute distress. CV: RRR on telemetry Pulmonary: No accessory muscle use. Equal chest rise bilaterally. Abdomen: soft, non-tender Ext: No cyanosis, edema, or deformity Skin: No rash Neurological Examination Psych and Mental status: alert; oriented to person only Speech/language: Aphasic, does not follow commands, unable to identify common objects Cranial nerves: CN II visual valderrama full to confrontation without visual extinction CN III, IV, PERRL. EOMI. CN V facial sensation intact to light touch bilaterally in V1, V2, V3 CN VII face, smile, eyebrow raise/closure symmetric CN VIII hearing grossly intact to voice CN IX & X no dysarthria CN XI shoulder shrug will full strength CNXII tongue protrudes midline Motor: Normal bulk and tone. No pronator drift. SA EE EF WE WF KE KF DF PF Right 5 5 5 5 5 5 5 5 5 Left 5 5 5 5 5 5 5 5 5 Coordination: Jmicru-lv-ncpy intact bilaterally. Flqp-qg-uxnj intact bilaterally. Sensation: intact to light touch throughout without extinction. Gait: Deferred Diagnostics/Procedures: Labs-CBC WBC/Hgb/Hct/Plts: 7.53/15.3/46.5/192 (11/26 1144) Labs-Chem 7(PMC) Bun/Creat/Cl/CO2/Glucose: --/--/--/--/95 (11/26 1135) Labs-Coags Ptt/Pt/Inr: 28.3/13.2/1.0 (11/26 1144) Additional Labs No results found for: CHOLESTEROL, TRIG, HDL, LDLCALC, LDLDIRECT Labs-Hemoglobin A1C No results found for: HGBA1C Imaging: CT head and CTP were analyzed by [facility], no mismatch on CTP. CT Stroke Head:No hemorrhage, likely left sided acute stroke CTA Brain/Neck: Done at the outside hospital, left ICA stenosis CT Perfusion: No mismatch Assessment/Impression: Remberto Ann appears to have suffered a left hemispheric stroke (left ICA territory). Plan: -Please admit to neurovascular service PCU, attending Dr. Lee. An ischemic stroke without IV tPA order set has been signed and held. -Swallow evaluation prior to any oral intake -Aspirin 81 mg orally or 300 mg rectally -Blood pressure goals with SBP less than 220 -Obtain MRI brain, stroke protocol -ECHO to evaluate cardiac function -Lipid panel, LFTs and HgbA1c to evaluate secondary risk factors for ischemic stroke -Baseline EKG, if not done in ED. Continuous telemetry -PT, OT, Speech and director social service consults -Neurosurgery consult to evaluate for left ICA stenosis and possible intervention This plan has been discussed with stroke fellow Dr. Smith and has been communicated to ED team. Corey Strauss APRN-TEST SKEIN WINDER 11/26/2020 12:13 PM Associated attestation - Alyssa Lee MD - 11/26/2020 8:36 PM EDT I have seen and independently examined the patient on 11/26/2020. I reviewed the laboratory and imaging data. The management plan was constructed in discussion with me. I agree with the note as written by the nurse practitioner: 70 y/o man with no significant PMHx p/w wake up symptoms of aphasia and trouble walking. NIHSS-4 over telestroke. Outside IVtpa window. CTA- LICA 70% stenosis. NIHSS-6 on arrival. During rounds, he is noticed to have word finding difficulty with no motor weakness. ASA 325mg and Plavix 300mg today followed by 75mg daily. Statin. Consult NSG for DSA and possible stenting. Follow up MRI brain and TTE. OT/PT/FULL TIME BABYSITTER. documented in this encounter [facility] Clinical Note 11-26-2020 Note Date & Type Note Facility 11-26-2020 Note Acute Coronary Syndr ome (ACS): Initial Evaluation and Management: [email or web address] [facility] Emergency department Note 11-26-2020 Corey Clements MD - 11/26/2020 12:04 PM Delma English RN - 11/26/2020 11:41 AM Delma English RN - 11/26/2020 11:35 AM Glory Gomes MD - 11/26/2020 11:24 AM EDT Note Date & Type Note Facility 11-26-2020 Emergency department Note ED Staffing Note Chief complaint: Chief Complaint Patient presents with Extremity Weakness LKW 1900, NIH 3, difficulty finding words, VS stable Remberto Ann is a 70 y.o. year old male who presents with aphasia and reported extremity weakness, last known well 7pm. Outside tpa window. Transfer for stroke alert. Reports confusion/being jumbled. Past Medical History: Diagnosis Date Fibromyalgia HLD (hyperlipidemia) No past surgical history on file. Social History Socioeconomic History Marital status: Spouse name: Not on file Number of children: Not on file Years of education: Not on file Highest education level: Not on file Occupational History Not on file Tobacco Use Smoking status: Not on file Substance and Sexual Activity Alcohol use: Not on file Drug use: Not on file Sexual activity: Not on file Other Topics Concern Not on file Social History Narrative Not on file Social Determinants of Health Financial Resource Strain: Difficulty of Paying Living Expenses: Food Insecurity: Worried About Running Out of Food in the Last Year: Ran Out of Food in the Last Year: Transportation Needs: Lack of Transportation (Medical): Lack of Transportation (Non-Medical): Physical Activity: Days of Exercise per Week: Minutes of Exercise per Session: Stress: Feeling of Stress : Social Connections: Frequency of Communication with Friends and Family: Frequency of Social Gatherings with Friends and Family: Attends [employer] Services: Active Member of Clubs or Organizations: Attends Club or Organization Meetings: Marital Status: Intimate Partner Violence: Fear of Current or Ex-Partner: Emotionally Abused: Physically Abused: Sexually Abused: No family history on file. Review of systems as documented in above HPI and in resident provider chart. All other systems reviewed and negative unless otherwise documented. BP 194/84 Pulse 72 Resp 20 SpO2 97% DDx: tia ischemic stroke ica occlusion Impression: Carotid stenosis Ischemic stroke Plan: Stroke eval ekg Labs neurovasc consult ED Course: Patient with confusion, carotid stenosis and ischemic infarct. Patient stable on recheck. Admit to pcu/neurovasc. EKG Interpretation Interpreted by emergency department physician Rhythm: normal sinus Rate: normal ST Segments: no acute change T Waves: no acute change Clinical Impression: no acute changes and limited by motion artifact. Corey Clements MD Prior medical records were reviewed. All pertinent labs and imaging results were reviewed and interpreted by me. The patient was updated regarding findings, and was re-assessed during ED stay. This patient's history and physical exam were performed by the resident. On 11/26/2020 I saw and examined the patient. I discussed the history and examination with the resident and agree with the plan of care. In addition, I have fully participated in the care of this patient. I have reviewed all pertinent clinical information, including history, physical exam and medical decision making with the resident. Corey Clements MD 11/27/20 0957 Bed: E037 Expected date: 11/26/20 Expected time: Means of arrival: Private Ambulance Comments: PT arrived via ems from OSH, EMS report LKW is 1900 last night. made patient be seen at OSH d/t L sided numbness and difficulty understanding and responding to questions. eMERGENCY dEPARTMENT eNCOUnter CHIEF COMPLAINT Extremity Weakness (LKW 1899, NIH 3, difficulty finding words, VS stable) HPI Time last known well: 1899 Remberto Ann is a 70 y.o. male with PMHx HLD, fibromyalgia, back pain, BPH who presents to the ED from OSH with as a Level 2 stroke. Patient presented with aphasia. Denies weakness or slurred speech. Denies headache or other associated symptoms. CTA with >70% occlusion of right internal carotid artery. Patient presents for Neurosurgery evaluation. History is limited secondary to acuity of condition and patient condition. REVIEW OF SYSTEMS ROS limited by patient acuity. See HPI for pertinent responses. PAST MEDICAL HISTORY HLD, fibromyalgia, back pain, BPH SURGICAL HISTORY No past surgical history on file. CURRENT MEDICATIONS Atorvastatin 10 mg PO daily Finasteride 5 mg PO daily ALLERGIES No known allergies FAMILY HISTORY History reviewed. No pertinent family history. SOCIAL HISTORY Social History Socioeconomic History Marital status: Spouse name: Not on file Number of children: Not on file Years of education: Not on file Highest education level: Not on file Occupational History Not on file Tobacco Use Smoking status: Current Every Day Smoker Packs/day: 0.50 Types: Cigarettes Smokeless tobacco: Never Used Substance and Sexual Activity Alcohol use: Yes Alcohol/week: 1.0 standard drink Types: 1 Cans of beer per week Drug use: Never Sexual activity: Not on file Other Topics Concern Not on file Social History Narrative Not on file Social Determinants of Health Financial Resource Strain: Difficulty of Paying Living Expenses: Food Insecurity: Worried About Running Out of Food in the Last Year: Ran Out of Food in the Last Year: Transportation Needs: Lack of Transportation (Medical): Lack of Transportation (Non-Medical): Physical Activity: Days of Exercise per Week: Minutes of Exercise per Session: Stress: Feeling of Stress : Social Connections: Frequency of Communication with Friends and Family: Frequency of Social Gatherings with Friends and Family: Attends [employer] Services: Active Member of Clubs or Organizations: Attends Club or Organization Meetings: Marital Status: Intimate Partner Violence: Fear of Current or Ex-Partner: Emotionally Abused: Physically Abused: Sexually Abused: PHYSICAL EXAM VITAL SIGNS: BP 190/89 (BP Location: Left arm, BP Position: Lying) Pulse 71 Temp 98 F (36.7 C) (Oral) Resp 18 Ht 1.549 m (5' 1 ) SpO2 95% Smoking Status Current Every Day Smoker Constitutional: Well developed, well nourished, no acute distress Eyes: PERRL HENT: Atraumatic, external ears normal, nose normal, oropharynx moist. Neck- normal range of motion, no tenderness, supple. Respiratory: No respiratory distress, normal breath sounds, no rales, no wheezing Cardiovascular: Normal rate, normal rhythm, no murmurs, no gallops, no rubs. GI: Soft, nondistended, normal bowel sounds, nontender, no organomegaly, no mass, no rebound, no guarding Musculoskeletal: No edema, no tenderness, no deformities. Back- no tenderness Integument: Well hydrated, no rash Neurologic: GCS: 14 Neuro exam / NIHSS: 6 EKG Interpretation Interpreted by me Rhythm: sinus Rate: 72 [place]: normal Ectopy: PACs Conduction: normal ST Segments: no acute change T Waves: no acute change Q Waves: none RADIOLOGY/PROCEDURES CT HEAD Interpreted by: radiologist Impression: as below ED COURSE & MEDICAL DECISION MAKING Pertinent Labs & Imaging studies if performed reviewed. (See chart for details) Medication list reviewed. Assessment: Remberto Ann is a 70 y.o. male with PMHx HLD, fibromyalgia, back pain, BPH who presents to the ED from OSH with as a Level 2 stroke. Differential Diagnosis includes but is not limited to: ischemic stroke, hemorrhagic stroke, TIA, metabolic abnormalities, intracranial mass (malignancy, met, other), migraine, seizure, conversion disorder, y, vs other Initial Plan: Results for orders placed or performed during the hospital encounter of 11/26/20 PTINR-STROKE Result Value Ref Range PT 13.2 11.9 - 14.2 sec INR 1.0 0.9 - 1.1 PTT Result Value Ref Range PTT 28.3 24.0 - 34.3 sec CH 7 - ED Result Value Ref Range Sodium 138 133 - 143 mmol/L Potassium 4.6 3.5 - 5.0 mmol/L Chloride 106 98 - 108 mmol/L CO2 28 22 - 30 mmol/L Glucose 98 70 - 99 mg/dL BUN 15 7 - 22 mg/dL Creatinine 0.96 0.70 - 1.30 mg/dL Bun/Crea Ratio 16 Osmolality (Calculated) 291 278 - 305 mOsm/kg EST GFR,Non >=60 >=60 mL/min/1.73sqM EST GFR, >=60 >=60 mL/min/1.73sqM Anion Gap 9 7 - 17 mmol/L PHOSPHATE, INORGANIC Result Value Ref Range Phosphorous 2.9 2.2 - 4.6 mg/dL MAGNESIUM Result Value Ref Range Magnesium 2.0 1.6 - 2.6 mg/dL CALCIUM Result Value Ref Range Calcium 9.1 8.6 - 10.5 mg/dL HEPATIC FUNCTION PANEL Result Value Ref Range Albumin 4.1 3.5 - 5.0 g/dL Bilirubin Direct 0.1 <0.3 mg/dL Bilirubin Total 0.7 <1.5 mg/dL ALP 89 32 - 126 U/L ALT 12 10 - 52 U/L AST 17 14 - 40 U/L Total Protein 6.7 6.4 - 8.3 g/dL HIGH SENSITIVITY TROPONIN I - SINGLE ORDER Result Value Ref Range hs-Troponin I 16 <53 ng/L CBC AND ELECTRONIC DIFF Result Value Ref Range WBC Count 7.53 3.73 - 10.10 K/uL RBC Count 4.76 4.38 - 5.83 M/uL Hemoglobin 15.3 13.4 - 16.8 g/dL Hematocrit 46.5 39.6 - 48.8 % Mean Cell Volume 97.7 (H) 79.0 - 94.5 fL Mean Cell Hgb 32.1 26.1 - 33.3 pg Mean Cell Hgb Conc 32.9 31.9 - 36.5 g/dL RBC Distribution 12.5 10.9 - 14.3 % Platelet Count 192 146 - 337 K/uL Mean Platelet Volume 9.4 8.7 - 12.3 fL DIFF STATUS Electronic Differential Segs + Bands Auto 78.9 % Immature Grans % 0.4 % Lymphocyte % Auto 12.2 % Monocyte % Auto 7.3 % Eosinophil % Auto 0.8 % Basophil % Auto 0.4 % Nucleated RBC 0.0 <=0.2 /100 WBC Segs + Bands,Absolute Auto 5.94 1.57 - 6.19 K/uL Immature Grans Absolute <0.04 <=0.08 K/uL Abs Lymph Auto 0.92 0.83 - 3.57 K/uL Abs [place] Auto 0.55 0.24 - 0.93 K/uL Abs Eos Auto 0.06 0.00 - 0.48 K/uL Abs Baso Auto <0.04 0.00 - 0.09 K/uL GLUCOSE POC Result Value Ref Range Glucose (Poc Device) 95 70 - 99 mg/dL Poc Sample Type CAPBL CT CEREBRAL PERFUSION ANALYSIS Preliminary Result IMPRESSION: Small area of delayed perfusion in the left temporo-occipital region. Although the automated Viz software did not find an infarct core or region of delayed perfusion, this small region may represent tissue at risk based on visual inspection of the parametric maps. CT STROKE HEAD-STROKE ALERT ONLY Preliminary Result IMPRESSION: A small area of low attenuation and loss of gomez-white matter differentiation in the left temporo-occipital region (series 3 image 16) may represent a recent infarct. No evidence of acute intracranial hemorrhage or significant mass effect. Course and Medical Decision Making: On arrival, vitals stable. Stroke alert was called. Neuro at bedside upon arrival. Initial NIHSS 6. Labs pending. CT head as above. CTA and CT perfusion results pending. BP goal <220/120 (no tPA) BG goal 100-200 Patient will be admitted to Neurovascular for further workup and monitoring. Impression: Aphasia Disposition: Admission This patient was discussed with the attending physician who was in the immediate care area during the evaluation and decision making process. Smitha Gomes MD This note dictated using [employer] medical voice recognition software. Attempts at proofreading were made, but errors may occasionally still occur Smitha Gomes MD Resident 11/26/20 1222 documented in this encounter [facility] Evaluation note Note Date & Type Note Facility documented in this encounter [facility] Summary Purpose Family History No Family History Records Found Advance Directives Latest Code Status on File Code Status Date Activated Date Inactivated Comments Full Code 11/30/2020 10:51 PM Full Code 11/26/2020 4:05 PM 11/30/2020 10:51 PM Reason for Referral Specialty Diagnoses / Procedures Referred By Paulette mcgee Referred To Contact Diagnoses Symptomatic carotid artery stenosis, left Procedures REASON FOR NOT PRESCRIBING ANTICOAGULATION THERAPY AT DISCHARGE Fela, Nelson A, TEST LEAD-TEST SKEIN WINDER [address] [place] [address] Referral ID Status Reason Start Date Expiration Date V isits Requested Visits Authorized [id number] New Request 12/03/2020 12/28/2021 1 1 Specialty Diagnoses / Procedures Referred By Contac t Referred To Contact Procedures DVT/VTE RISK ASSESSMENT Alyssa Lee MD [address] [place] [address] Referral ID Status Reason Start Date Expiration Date V isits Requested Visits Authorized [id number] New Request 12/02/2020 12/27/2021 1 1 Specialty Diagnoses / Procedures Referred By Contac t Referred To Contact Procedures REASON FOR NOT ADMINISTERING ANTITHROMBOTIC THERAPY BY EOD 2 Alyssa Lee MD [address] [place] [address] Referral ID Status Reason Start Date Expiration Date V isits Requested Visits Authorized [id number] New Request 12/02/2020 12/27/2021 1 1 Specialty Diagnoses / Procedures Referred By Contac t Referred To Contact Procedures DVT/VTE RISK ASSESSMENT Rosemary Xiong, TEST LEAD-TEST SKEIN WINDER [address] [place] [address] [place] [address] Referral ID Status Reason Start Date Expiration Date V isits Requested Visits Authorized [id number] New Request 11/30/2020 12/25/2021 1 1 Specialty Diagnoses / Procedures Referred By Contac t Referred To Contact Speech Therapy Diagnoses Cerebrovascular accident (CVA), unspecified mechanism Maria R Krishnamurthy, TEST LEAD-TEST SKEIN WINDER [address] [place] [address] Referral ID Status Reason Start Date Expiration Date V isits Requested Visits Authorized [id number] New Request 11/29/2020 12/24/2021 1 1 Scheduling Instructions [facility] [address] 2nd [place] [address] Fax Outpatient Rehabilitation [facility] [address], [address] [place] [address] FAX [facility] [address] [place], [place] [id number] FAX [facility] at [address] [address] FAX [facility] [address] [place] [address] FAX Specialty Diagnoses / Procedures Referred By Paulette mcgee Referred To Contact Occupational Therapy Diagnoses Cerebrovascular accident (CVA), unspecified mechanism Maria R Krishnamurthy, TEST LEAD-TEST SKEIN WINDER [address] [facility] [address] [place], [place] [id number] Referral ID Status Reason Start Date Expiration Date V isits Requested Visits Authorized [id number] New Request 11/29/2020 12/24/2021 1 1 Scheduling Instructions [facility] [address]nd [place] [address] Fax Outpatient Rehabilitation [facility] [address], [address] [place] [address] FAX [facility] [address] [place], [place] [address] FAX [facility] [address] [place] [address] FAX [facility] (Upper Extremity and Hand Therapy) [address] [place] [facility] [id number] FAX [facility] [address] [place] [address] FAX Specialty Diagnoses / Procedures Referred By Paulette mcgee Referred To Contact Physical Therapy Diagnoses Cerebrovascular accident (CVA), unspecified mechanism Maria R Krishnamurthy, TEST LEAD-TEST SKEIN WINDER [address] [place] [address] Referral ID Status Reason Start Date Expiration Date V isits Requested Visits Authorized [id number] New Request 11/29/2020 12/24/2021 1 1 Scheduling Instructions [facility] [address] 2[address] [place] [address] Fax [facility] (Neck and Back Therapy) [address] [place], [place] [address] FAX [facility] at [address] [address] FAX Outpatient Rehabilitation [facility] [address] [place] [address] [facility] [address] [place] [address] FAX [facility] [address] [place], [place] [address] FAX [facility] [address] [place], [place] [address] FAX [facility] [address] [place], [place] [address] FAX Specialty Diagnoses / Procedures Referred By Paulette mcgee Referred To Contact Procedures REASON FOR NOT ADMINISTERING ANTITHROMBOTIC THERAPY BY EOD 2 Felicia Pacheco MD [address] [place] [address] Referral ID Status Reason Start Date Expiration Date V isits Requested Visits Authorized [id number] New Request 11/27/2020 12/22/2021 1 1 Specialty Diagnoses / Procedures Referred By Contac t Referred To Contact Procedures DVT/VTE RISK ASSESSMENT Corey Strauss, TEST LEAD-TEST SKEIN WINDER [address] [place] [address] Referral ID Status Reason Start Date Expiration Date V isits Requested Visits Authorized [id number] New Request 11/26/2020 12/21/2021 1 1 Specialty Diagnoses / Procedures Referred By Contac t Referred To Contact Procedures ECG Corey Strauss, TEST LEAD-TEST SKEIN WINDER [address] [place] [address] Referral ID Status Reason Start Date Expiration Date V isits Requested Visits Authorized [id number] New Request 11/26/2020 12/21/2021 1 1 Specialty Diagnoses / Procedures Referred By Contac t Referred To Contact Corey Strauss TEST LEAD-TEST SKEIN WINDER [address] [place] [address] Referral ID Status Reason Start Date Expiration Date Visits Re quested Visits Authorized Additional Source Comments (unrecognized sect ion and content) No Status Records Found INFORMATION SOURCE (unrecogn ized section and content) Reason for Visit (unrecogniz ed section and content) Specialty Diagnoses / Procedures Referred By Contac t Referred To Contact Diagnoses Level 2 Stroke alert Referral ID Status Reason Start Date Expiration Date Visits Re quested Visits Authorized [id number] 1 1 Scheduled Active and Recently Administ ered Medications (unrecognized section and content) Continuous Medication Order 12/01/2020 12/02/2020 12/03/2020 norepinephrine (levophed) 4 mg in normal saline 250ml IV infusion premade (CANCELED) 0-1 mcg/kg/min 68 kg Dosing weight (0-255 mL/hr), Intravenous, CONTINUOUS, Starting on Thu11/30/20 at 2245, Until Thu12/02/20 at 1512, Initiate infusion at 0.05 mcg/kg/min. Target: MAP >65 Titrate every 1 minute by 0.05 mcg/kg/min if within 5 mmHg above/below target range or by 0.1 mcg/kg/min if >5 mmHg above/below target range. Titrate to the lowest rate to achieve target goal. Notify prescriber for inability to achieve goals at maximum dose of ordered range or change in clinical condition. Extravasation Risk 0002 (Rate/Dose Change - Provider: Fabby Colin RN)0004 (Paused - Provider: Fabby Colin RN)0006 (Restarted - Provider: Fabby Colin RN)0032 (Rate/Dose Change - Provider: Fabby Colin RN)0106 (Rate/Dose Change - Provider: Fabby Colin RN)0131 (Rate/Dose Change - Provider: Fabby Colin RN)0200 (Rate/Dose Verify - Provider: Fabby Colin RN)0246 (Rate/Dose Change - Provider: Fabby Colin RN)0302 (Rate/Dose Change - Provider: Fabby Colin RN)0400 (Rate/Dose Verify - Provider: Fabby Colin RN)0531 (Rate/Dose Change - Provider: Fabby Colin RN)0600 (Rate/Dose Verify - Provider: Fabby Colin RN)0615 (Rate/Dose Change - Provider: Karis Jimenez RN)0622 ($$New Bag$$ - Provider: Fabby Colin RN)0706 (Rate/Dose Change - Provider: Karis Jimenez RN)0715 (Rate/Dose Verify - Provider: Karis Jimenez RN)0716 (Rate/Dose Change - Provider: Karis Jimenez RN)0716 (Rate/Dose Change - Provider: Karis Jimenez RN)0801 (Rate/Dose Verify - Provider: Karis Jimenez RN)0816 (Rate/Dose Change - Provider: Emilee Freed RN)0818 (Rate/Dose Verify - Provider: Karis Jimenez RN - Comment: [Action automatically changed])0848 (Rate/Dose Change - Provider: Emilee Freed RN)0849 (Rate/Dose Verify - Provider: Kairs Jimenez RN - Comment: [Action automatically changed])0923 (Rate/Dose Change - Provider: Karis Jimenez RN)0926 (Rate/Dose Verify - Provider: Emilee Freed RN)1013 (Rate/Dose Change - Provider: Karis Jimenez RN)1014 (Rate/Dose Verify - Provider: Emilee Freed RN)1031 ($$New Bag$$ - Provider: Karis Jimenez RN)1135 (Rate/Dose Change - Provider: Emilee Freed RN)1135 (Rate/Dose Verify - Provider: Emilee Freed RN)1201 (Rate/Dose Change - Provider: Emilee Freed RN)1229 (Rate/Dose Verify - Provider: Emilee Freed RN)1255 (Rate/Dose Change - Provider: Emilee Freed RN)1300 (Rate/Dose Verify - Provider: Emilee Freed RN)1312 (Rate/Dose Change - Provider: Emilee Freed RN)1351 (Rate/Dose Change - Provider: Emilee Freed RN)1505 (Rate/Dose Change - Provider: Emilee Freed RN)1531 (Rate/Dose Change - Provider: Emilee Freed RN)1610 (Rate/Dose Verify - Provider: Emilee Freed RN)1628 (Rate/Dose Change - Provider: Emilee Freed RN)1632 (Rate/Dose Change - Provider: Emilee Freed, SLIME)1711 (Rate/Dose Change - Provider: Emilee Freed, SLIME)1800 (Rate/Dose Verify - Provider: Emilee Freed RN)1849 (Rate/Dose Change - Provider: Emilee Freed RN)1859 (Rate/Dose Verify - Provider: Emilee Freed RN)1901 (Rate/Dose Change - Provider: Fabby Colin, RN)2100 (Rate/Dose Verify - Provider: Fabby Colin RN)2228 (Rate/Dose Change - Provider: Fabby Colin RN)2300 (Rate/Dose Change - Provider: Fabby Colin RN) 0000 (Rate/Dose Verify - Provider: Fabby Colin RN)0016 (Rate/Dose Change - Provider: Fabby Cloin RN)0057 (Rate/Dose Change - Provider: Fabby Colin RN)0117 (Rate/Dose Change - Provider: Fabby Colin RN)0500 (Rate/Dose Verify - Provider: Fabby Colin RN)0607 (Rate/Dose Change - Provider: Elmira Joseph RN)0612 (Rate/Dose Change - Provider: Elmira Joseph RN)0620 (Rate/Dose Change - Provider: Elmira Joseph RN)0811 (Rate/Dose Change - Provider: Elmira Joseph RN)0852 (Stopped - Provider: Elmira Joseph RN) PRN Medication Order 12/01/2020 12/02/2020 12/03/2020 acetaminophen (TYLENOL) oral solution 650 mg(Linked Group 3) 650 mg, Oral, EVERY 4 HOURS NEEDED, Starting on Thu11/30/20 at 2249, Until Thu12/03/20 at 1225, Mild Pain, Other, Oral temp > 99.5 F, Maximum dose of acetaminophen is 4000 mg from all sources in 24 hours. 1316 (See Alternative - Provider: Emilee Freed RN) acetaminophen (TYLENOL) oral solution 650 mg(Linked Group 3) 650 mg, Per NG tube, EVERY 4 HOURS NEEDED, Starting on Thu11/30/20 at 2249, Until Thu12/03/20 at 1225, Mild Pain, Other, Oral temp > 99.5 F, Maximum dose of acetaminophen is 4000 mg from all sources in 24 hours. 1316 (See Alternative - Provider: Emilee Freed RN) acetaminophen (TYLENOL) tablet 650 mg(Linked Group 3) 650 mg, Oral, EVERY 4 HOURS NEEDED, Starting on Thu11/30/20 at 2249, Until Thu12/03/20 at 1225, Mild Pain, Other, Oral temp > 99.5 F, Maximum dose of acetaminophen is 4000 mg from all sources in 24 hours. 1316 (Given - Provider: Emilee Freed RN) calcium gluconate 10 % injection 2 g (CANCELED) 2 g, Intravenous, ADMINISTER DIRECTED, Starting on Thu11/30/20 at 2241, Until Thu12/02/20 at 1600, See admin instructions, ICU Calcium Gluconate Replacement Parameters, Administer if ionized calcium is between 4.1-4.4 mg/dl. EXCLUDE less than 45 kg, SCr greater than or equal to 2 mg/dL, CrCl less than 30 ml/min, ESRD, and renal replacement therapy, Serum total Ca x serum Phos greater than 70 mg/dL. Extravasation Risk 0524 (Given - Provider: Fabby Colin RN) hydrALAZINE (APRESOLINE) injection 10 mg(Linked Group 4) 10 mg, Intravenous, EVERY 1 HOUR NEEDED, Starting on Thu11/30/20 at 2241, Until Thu12/03/20 at 1225, See administration instructions, Use as initial dose for Systolic Blood Pressure GREATER than 160 mmHg and Heart rate LESS than 60 beats per minute. Higher dose may be administered if lower dose was previously documented as ineffective 10 minutes after administration and did not result in adverse effects (HR>90) hydrALAZINE (APRESOLINE) injection 20 mg(Linked Group 4) 20 mg, Intravenous, EVERY 1 HOUR NEEDED, Starting on Thu11/30/20 at 2241, Until Thu12/03/20 at 1225, See administration instructions, Higher dose may be administered for Systolic Blood Pressure GREATER than 160 mmHg and Heart rate LESS than 60 beats per minute if lower dose was previously documented as ineffective 10 minutes after administration and did not result in adverse effects (HR>90). Decrease back to lower dose if patient has adverse effects, or no PRN used in previous 3 hours labetalol (NORMODYNE) injection 10 mg(Linked Group 5) 10 mg, Intravenous, EVERY 1 HOUR NEEDED, Starting on Thu11/30/20 at 2241, Until Thu12/03/20 at 1225, See admininstration instructions, Use as initial dose for Systolic Blood Pressure GREATER than 160 mmHg and Heart Rate GREATER than 60 beats per minute. Higher dose may be administered if lower dose was previously documented as ineffective 10 minutes after administration and did not result in adverse effects (HR<60) For vials: labetalol should be treated as a SINGLE USE VIAL. Discard remaining contents after one use. labetalol (NORMODYNE) injection 20 mg(Linked Group 5) 20 mg, Intravenous, EVERY 1 HOUR NEEDED, Starting on Thu11/30/20 at 2241, Until Thu12/03/20 at 1225, See administration instructions, For Systolic Blood Pressure GREATER than 160 mmHg and if Heart Rate GREATER than 60 beats per minute. Higher dose may be administered if lower dose was previously documented as ineffective 10 minutes after administration and did not result in adverse effects (HR<60). Decrease back to lower dose if patient has adverse effects, or no PRN used in previous 3 hours For vials: labetalol should be treated as a SINGLE USE VIAL. Discard remaining contents after one use. Magnesium Sulfate 4 g in sterile water 50 ml premix IVPB (CANCELED) 4 g, Intravenous, Administer over 4 Hours, ADMINISTER DIRECTED, Starting on Thu11/30/20 at 2241, Until Thu12/02/20 at 1600, Other, ICU Magnesium Replacement Parameters, Administer 4 grams once if magnesium level is less than or equal to 2.0 mg/dL. If replacing potassium also, replete magnesium prior to KCl administration. EXCLUDE less than 45 kg, SCr greater than or equal to 2 mg/dL, CrCl less than 30 ml/min, ESRD, and renal replacement therapy 0530 ($$New Bag$$ - Provider: Fabby Colin RN)0532 (Rate/Dose Verify - Provider: Fabby Colin RN)0600 (Rate/Dose Verify - Provider: Fabby Colin RN)0715 (Rate/Dose Verify - Provider: Karis Jimenez, SLIME)0801 (Rate/Dose Verify - Provider: Karis Jimenez, SLIME)0933 (Stopped - Provider: Emilee Freed RN)0935 (Stopped - Provider: Karis Jimenez, SLIME) ondansetron 4mg/2ml (ZOFRAN) injection 4 mg 4 mg, Intravenous, EVERY 4 HOURS NEEDED, Starting on Thu11/30/20 at 2249, Until Thu12/03/20 at 1225, Nausea / Vomiting polyethylene glycol (MIRALAX) packet 17 g(Linked Group 6) 17 g, Oral, DAILY NEEDED, Starting on Thu11/30/20 at 2250, Until Thu12/03/20 at 1225, Constipation If No Bowel Movement in 48 Hours, after bisacodyl polyethylene glycol (MIRALAX) packet 17 g(Linked Group 6) 17 g, Per NG tube, DAILY NEEDED, Starting on Thu11/30/20 at 2250, Until Thu12/03/20 at 1225, Constipation If No Bowel Movement in 48 Hours, after bisacodyl Linked Groups Order Group 1: enOXAParin (LOVENOX) injection 40 mgJump to med 40 mg, Subcutaneous, DAILY EVERY MORNING, First dose on Thu11/26/20 at 1745, Until Discontinued

Indications: DVT/PE prophylaxis And PLATELET COUNT (CANCELED) Routine, EVERY 3 DAYS AM LAB, First occurrence on Geetha 11/29/20 at 0500, Until Specified, New collection Group 2: senna (SENOKOT) tablet 8.6 mgJump to med 8.6 mg, Oral, DAILY, First dose on 12/01/20 at 0900, Until Discontinued Or senna (SENOKOT) tablet 8.6 mgJump to med 8.6 mg, Per NG tube, DAILY, First dose on 12/01/20 at 0900, Until Discontinued Group 3: acetaminophen (TYLENOL) tablet 650 mgJump to med 650 mg, Oral, EVERY 4 HOURS NEEDED, Starting on Thu11/30/20 at 2249, Until Thu12/03/20 at 1225, Mild Pain, Other, Oral temp > 99.5 F
Maximum dose of acetaminophen is 4000 mg from all sources in 24 hours.
Or acetaminophen (TYLENOL) oral solution 650 mgJump to med 650 mg, Oral, EVERY 4 HOURS NEEDED, Starting on Thu11/30/20 at 2249, Until Thu12/03/20 at 1225, Mild Pain, Other, Oral temp > 99.5 F
Maximum dose of acetaminophen is 4000 mg from all sources in 24 hours.
Or acetaminophen (TYLENOL) oral solution 650 mgJump to med 650 mg, Per NG tube, EVERY 4 HOURS NEEDED, Starting on Thu11/30/20 at 2249, Until Thu12/03/20 at 1225, Mild Pain, Other, Oral temp > 99.5 F
Maximum dose of acetaminophen is 4000 mg from all sources in 24 hours.
Group 4: hydrALAZINE (APRESOLINE) injection 10 mgJump to med 10 mg, Intravenous, EVERY 1 HOUR NEEDED, Starting on Thu11/30/20 at 2241, Until Thu12/03/20 at 1225, See administration instructions
Use as initial dose for Systolic Blood Pressure GREATER than 160 mmHg and Heart rate LESS than 60 beats per minute. Higher dose may be administered if lower dose was previously documented as ineffective 10 minutes after administration and did not result in adverse effects (HR>90)
Or hydrALAZINE (APRESOLINE) injection 20 mgJump to med 20 mg, Intravenous, EVERY 1 HOUR NEEDED, Starting on Thu11/30/20 at 2241, Until Thu12/03/20 at 1225, See administration instructions
Higher dose may be administered for Systolic Blood Pressure GREATER than 160 mmHg and Heart rate LESS than 60 beats per minute if lower dose was previously documented as ineffective 10 minutes after administration and did not result in adverse effects (HR>90). Decrease back to lower dose if patient has adverse effects, or no PRN used in previous 3 hours
Group 5: labetalol (NORMODYNE) injection 10 mgJump to med 10 mg, Intravenous, EVERY 1 HOUR NEEDED, Starting on Thu11/30/20 at 2241, Until Thu12/03/20 at 1225, See admininstration instructions
Use as initial dose for Systolic Blood Pressure GREATER than 160 mmHg and Heart Rate GREATER than 60 beats per minute. Higher dose may be administered if lower dose was previously documented as ineffective 10 minutes after administration and did not result in adverse effects (HR<60) For vials: labetalol should be treated as a SINGLE USE VIAL. Discard remaining contents after one use.
Or labetalol (NORMODYNE) injection 20 mgJump to med 20 mg, Intravenous, EVERY 1 HOUR NEEDED, Starting on Thu11/30/20 at 2241, Until Thu12/03/20 at 1225, See administration instructions
For Systolic Blood Pressure GREATER than 160 mmHg and if Heart Rate GREATER than 60 beats per minute. Higher dose may be administered if lower dose was previously documented as ineffective 10 minutes after administration and did not result in adverse effects (HR<60). Decrease back to lower dose if patient has adverse effects, or no PRN used in previous 3 hours For vials: labetalol should be treated as a SINGLE USE VIAL. Discard remaining contents after one use.
Group 6: polyethylene glycol (MIRALAX) packet 17 gJump to med 17 g, Oral, DAILY NEEDED, Starting on Thu11/30/20 at 2250, Until Thu12/03/20 at 1225, Constipation If No Bowel Movement in 48 Hours, after bisacodyl Or polyethylene glycol (MIRALAX) packet 17 gJump to med 17 g, Per NG tube, DAILY NEEDED, Starting on Thu11/30/20 at 2250, Until Thu12/03/20 at 1225, Constipation If No Bowel Movement in 48 Hours, after bisacodyl Care Teams (unrecognized sec tion and content) FOR RECORDS PERTAINING TO PATIENTS WHO ARE OR HAVE BEEN ENROLLED IN A CHEMICAL DEPENDENCY/SUBSTANCEABUSE PROGRAM, SOME INFORMATION MAY BE OMITTED. This clinical summary was aggregated from multiple sources. Caution should be exercised in using it in the provision of clinical care. This summary normalizes information from multiple sources, and as a consequence, information in this document may materially change the coding, format and clinical context of patient data. In addition, data may be omitted in some cases. CLINICAL DECISIONS SHOULD BE BASED ON THE PRIMARY CLINICAL RECORDS. [employer] provides no warranty or guarantee of the accuracy or completeness of information in this document.
== END | disposition home or self-care (01) ==
LOC: CVS 07:51
PROVIDERS: PCP Family Medicine; Referring Provider Psychiatry & Neurology Neurology; Visit Provider Psychiatry & Neurology Neurology
DX: I65.29 Occlusion and stenosis of unspecified carotid artery (principal); Z86.73 Personal history of transient ischemic attack (TIA), and cerebral infarction without residual deficits
CPT/HCPCS: 93880

== ENCOUNTER → 2023-09-10 | Outpatient (CLI) | payer MEDICARE, OTHER, SELFPAY ==
[2023-09-10 10:29] LABS: AST(SGOT) 17 U/L (15-37); Alanine Aminotransfer ALT/SGPT 28 U/L (16-61); Albumin, Serum 3.5 g/dL (3.2-5.0); Alkaline Phosphatase 116 U/L (45-117); Bilirubin, Direct 0.19 mg/dL (0.00-0.30); Cholesterol 171 mg/dL (200); Globulin 3.7 g/dL (2.2-4.2); High Density Lipoprotein 53 mg/dL; Protein, Total 7.2 g/dL (6.4-8.2); Triglycerides 112 mg/dL; Very Low Density Lipoprotein 22 mg/dL (5-40)
== END | disposition home or self-care (01) ==
LOC: MTLAB 07:05
PROVIDERS: PCP Family Medicine; Referring Provider Psychiatry & Neurology Neurology; Visit Provider Psychiatry & Neurology Neurology
DX: Z86.73 Personal history of transient ischemic attack (TIA), and cerebral infarction without residual deficits (principal); E78.5 Hyperlipidemia, unspecified
CPT/HCPCS: 36415; 80061; 80076